=== PATIENT | female | born 1940 | race Caucasian/White ===

== ENCOUNTER → 2017-12-16 10:26 | Outpatient (CLI) | payer OTHER, SELFPAY ==
[2017-12-16 12:03] LABS: Alanine Aminotransferase 24 IU/L (9-52); Albumin 4.5 g/dL (3.5-5.0); Albumin Globulin Ratio 1.5 (1.0-2.8); Alkaline Phosphatase 84 U/L (38-126); Aspartate Aminotransferase 29 IU/L (14-36); BUN Creatinine Ratio 27.5 (6-22); Bilirubin Total 1.6 mg/dL (0.2-1.3); Blood Urea Nitrogen 22 mg/dL (7-17); Calcium 10.5 mg/dL (8.4-10.2); Carbon Dioxide 29 mmol/L (22-32); Chloride 100 mmol/L (98-107); Estimated Glomerular Filt Rate > 60.0 mL/min (>60); Globulin 3.1 g/dL (1.7-4.1); Glucose 105 mg/dL (80-110); HEMOLYSIS < 15 (0-50); Magnesium 2.3 mg/dL (1.6-2.3); Potassium 4.7 mmol/L (3.4-5.1); Sodium 140 mmol/L (137-145); Total Protein 7.6 g/dL (6.3-8.2)
[2017-12-16 12:29] LABS: Thyroid Stimulating Hormone 0.04 uIU/mL (0.47-4.68)
[2017-12-21 09:29] LABS: Lipoprofile NMR SEE SEPERATE REPORT
== END ==
PROVIDERS: PCP Physician Assistant; Visit Provider Physician Assistant
DX: E78.2 Mixed hyperlipidemia (principal); I48.2 Chronic atrial fibrillation; E03.9 Hypothyroidism, unspecified
CPT/HCPCS: 36415; 80053; 83704; 83735; 84443

== ENCOUNTER → 2017-12-28 10:40 | Outpatient (CLI) | payer OTHER, SELFPAY ==
--- NOTE | 2017-12-28 | DI.ECHO.S_ITS ---
[facility] +---------+ : : [address] : : : : [id number] : : : : Phone: [phone] Echocardiogram Report + + :Name: HILLARY TIERNEY Study Date: 12/28/2017 Height: 66 in : :[facility] Weight: 138 lb : : Gender: Female BSA: 1.7 m2 : :: 1940 Age: 77 yrs BP: 162/84 mmHg: :Reason For Study: Mitral Valve- Regurgitation : :Ordering Physician: Bandar : :Scotty Performed By: Jessica Domínguez : + + Interpretation Summary The left ventricle is normal in size, wall thickness, and systolic function without any focal wall motion abnormalities with the ejection fraction visually estimated to be 60-65%. There has been no significant change since the previous study. The right ventricle is normal size but right ventricular systolic function is mildly reduced and appeared slightly less dynamic compared to the previous study. The right ventricular systolic pressure is estimated at 37 mmHg assuming a right atrial pressure of 3 mm Hg, and is unchanged compared to the previous study. Both atria are severely dilated but are unchanged compared to the previous study. There is moderate mitral regurgitation and moderate to severe tricuspid regurgitation that grossly appear unchanged compared to the previous study. The ascending aorta is at the upper limits of normal in size with probable luminal calcification noted. The patient was in atrial fibrillation with heart rates between 59-80 bpm during the exam. Procedure: A two-dimensional transthoracic echocardiogram with color flow and Doppler was performed. The study quality was technically adequate. Comparison is made with the echocardiogram of 05/22/2016. The patient was in atrial fibrillation with heart rates between 59-80 bpm during the exam. Left Ventricle: The left ventricle is normal in size, wall thickness, and systolic function without any focal wall motion abnormalities. The ejection fraction is estimated to be 60-65%. Diastolic function could not be accurately assessed due to atrial fibrillation. There has been no significant change since the previous study. Right Ventricle: The right ventricle is normal size. Right ventricular systolic function is mildly reduced. TAPSE average is 1.3 cm. This is slightly less dynamic compared to the previous study. Atria: Both atria are severely dilated. This is unchanged compared to the previous study. There is no Doppler evidence for an interatrial shunt. Mitral Valve: There is mild mitral annular calcification. The mitral valve leaflets appear mildly thickened, but open well. The mitral valve leaflets are slightly calcified. There is slight calcification extending into the subvalvular apparatus. There is moderate mitral regurgitation. This is unchanged compared to the previous study. Aortic Valve: The aortic valve is trileaflet. The aortic valve opens well. No aortic regurgitation is present. Tricuspid Valve: The tricuspid valve leaflets are thin and pliable. There is moderate to severe tricuspid regurgitation. The right ventricular systolic pressure is estimated at 37 mmHg assuming a right atrial pressure of 3 mm Hg. This is unchanged compared to the previous study. Pulmonic Valve: The pulmonic valve leaflets are thin and pliable; valve motion is normal. There is mild pulmonic regurgitation. This is unchanged compared to the previous study. Great Vessels: The aortic root is normal size. The ascending aorta is at the upper limits of normal in size. The aortic arch is normal in size. There is probable calcification noted in the ascending aorta. The IVC is of normal diameter and collapses greater than 50% with a sniff. This suggests a low right atrial pressure of 3 mm Hg. Pericardium/ Pleura There is no pericardial effusion. MMode/2D Measurements & Calculations LVIDd: 4.7 cm LVOT diam: 1.9 cm LVIDs: 2.7 cm Ao root diam: 2.9 cm FS: 43.3 % Aortic Jxn: 2.5 cm EPSS: 0.11 cm asc Aorta Diam: 3.3 cm IVSd: 0.80 cm Ao Arch Diam (Prox Trans): 2.4 cm LVPWd: 0.93 cm LV agrawal. diameter/BSA (cm/m^2): 2.7 LV sys. diameter/BSA (cm/m^2): 1.6 LA A2 area: 25.4 cm2 RA long axis: 6.9 cm LA A4 area: 31.2 cm2 RA area: 28.8 cm2 LA length (vol): 6.5 cm RA vol: 102.9 ml LA vol: 104.0 ml RA : 60.3 ml/m2 LA vol index: 60.9 ml/m2 IVC diam: 2.0 cm RVD1 (basal): 3.7 cm RVD2 (mid): 2.9 cm TAPSE: 1.3 cm Doppler Measurements & Calculations Ao V2 max: 107.0 cm/sec LVOT Max Abel: 90.7 cm/sec Ao V2 mean: 67.3 cm/sec LV V1 max P.3 mmHg Ao max P.6 mmHg LV V1 VTI: 20.3 cm Ao mean P.1 mmHg BOBBY(I,D): 2.7 cm2 Ao V2 VTI: 20.7 cm BOBBY(V,D): 2.4 cm2 sev ratio: 0.98 BOBBY indexed to BSA (cm^2/m^2): 1.6 MV E max abel: 104.3 cm/sec TR max abel: 289.6 cm/sec Med Peak E' Abel: 6.8 cm/sec TR max P.6 mmHg E/E' med: 15.4 PA V2 max: 70.9 cm/sec Lat Peak E' Abel: 10.9 cm/sec PA V2 mean: 46.4 cm/sec E/E' lat: 9.6 PA mean P.0 mmHg E/e' average: 12.5 PA Accel Time: 0.10 sec MV P1/2t: 46.0 msec MV P1/2t max abel: 104.5 cm/sec MVA(P1/2t): 4.8 cm2 Reading Physician:MEET
== END ==
PROVIDERS: Family Provider Physician Assistant Medical; PCP Physician Assistant; Visit Provider Physician Assistant Medical
DX: I08.1 Rheumatic disorders of both mitral and tricuspid valves (principal)
CPT/HCPCS: 93306

== ENCOUNTER → 2018-01-20 10:18 | Outpatient (CLI) | payer OTHER, SELFPAY ==
[2018-01-21 15:03] LABS: Parathyroid Hormone Int 62 pg/mL (14-64)
== END ==
PROVIDERS: PCP Physician Assistant; Visit Provider Physician Assistant
DX: E03.9 Hypothyroidism, unspecified (principal)
CPT/HCPCS: 36415; 83970

== ENCOUNTER → 2018-04-29 10:02 | Outpatient (CLI) | payer OTHER, SELFPAY ==
[2018-04-29 11:28] LABS: Add Manual Diff / Slide Review NO; Basophils Absolute Auto 100 /uL (0-100); Eosinophils Absolute Auto 100 /uL (0-450); Eosinophils Percent Auto 1.2 % (2-4); Hematocrit 38.3 % (36-46); Hemoglobin 12.8 g/dL (12.0-16.0); Lymphocytes Absolute Auto 1300 /uL (1100-4500); Lymphocytes Percent Auto 16.4 % (25-40); Mean Corpuscular HGB Conc 33.4 % (30-36); Mean Corpuscular Hemoglobin 31.2 PG (26-34); Mean Corpuscular Volume 93.4 fL (80-100); Monocytes Absolute Auto 600 /uL (0-900); Neutrophils Absolute Auto 5800 /uL (1500-7000); Neutrophils Percent Auto 73.4 % (50-75); Platelet Count 235 X10^3/uL (150-400); Red Cell Distribution Width 13.5 % (11.6-14.8); White Blood Cell Count 7.9 X10^3/uL (4.5-11.0)
[2018-04-29 12:43] LABS: Alanine Aminotransferase 25 IU/L (9-52); Albumin 4.6 g/dL (3.5-5.0); Albumin Globulin Ratio 1.5 (1.0-2.8); Alkaline Phosphatase 72 U/L (38-126); Aspartate Aminotransferase 26 IU/L (14-36); Bilirubin Total 1.4 mg/dL (0.2-1.3); Blood Urea Nitrogen 28 mg/dL (7-17); Calcium 9.9 mg/dL (8.4-10.2); Carbon Dioxide 26 mmol/L (22-32); Chloride 102 mmol/L (98-107); Cholesterol 181 mg/dL (140-199); Estimated Glomerular Filt Rate > 60.0 mL/min (>60); Globulin 3.1 g/dL (1.7-4.1); Glucose 97 mg/dL (80-110); HDL Cholesterol 74 mg/dL (40-60); HEMOLYSIS < 15 (0-50); LDL Cholesterol Calculated 94 mg/dL (<100); Potassium 4.3 mmol/L (3.4-5.1); Sodium 138 mmol/L (137-145); Total Protein 7.7 g/dL (6.3-8.2); Triglycerides 67 mg/dL (35-150)
[2018-04-29 14:11] LABS: Thyroid Stimulating Hormone 0.58 uIU/mL (0.47-4.68)
[2018-05-01 14:41] LABS: Parathyroid Hormone Int 74 pg/mL (14-64)
== END ==
PROVIDERS: Family Provider Physician Assistant Medical; PCP Physician Assistant; Visit Provider Physician Assistant
DX: E03.9 Hypothyroidism, unspecified (principal); E78.5 Hyperlipidemia, unspecified; I10 Essential (primary) hypertension; E83.52 Hypercalcemia
CPT/HCPCS: 36415; 80053; 80061; 83970; 84443; 85025

== ENCOUNTER → 2018-09-03 09:09 | Outpatient (CLI) | payer OTHER, SELFPAY ==
[2018-09-03 10:47] LABS: Alanine Aminotransferase 20 IU/L (9-52); Albumin 4.6 g/dL (3.5-5.0); Albumin Globulin Ratio 1.4 (1.0-2.8); Alkaline Phosphatase 86 U/L (38-126); Aspartate Aminotransferase 26 IU/L (14-36); Bilirubin Total 1.6 mg/dL (0.2-1.3); Blood Urea Nitrogen 20 mg/dL (7-17); Calcium 10.3 mg/dL (8.4-10.2); Carbon Dioxide 29 mmol/L (22-32); Chloride 98 mmol/L (98-107); Estimated Glomerular Filt Rate > 60.0 mL/min (>60); Globulin 3.3 g/dL (1.7-4.1); Glucose 110 mg/dL (80-110); HEMOLYSIS < 15 (0-50); Magnesium 2.3 mg/dL (1.6-2.3); Potassium 4.4 mmol/L (3.4-5.1); Sodium 137 mmol/L (137-145); Total Protein 7.9 g/dL (6.3-8.2)
[2018-09-06 08:41] LABS: Lipoprofile NMR SEE SEPARATE REPORTS
== END ==
PROVIDERS: Family Provider Physician Assistant; PCP Physician Assistant; Visit Provider Specialist
DX: E78.2 Mixed hyperlipidemia (principal); I48.2 Chronic atrial fibrillation
CPT/HCPCS: 36415; 80053; 83704; 83735

== ENCOUNTER → 2018-12-02 09:39 | Outpatient (CLI) | payer OTHER, SELFPAY ==
[2018-12-02 11:41] LABS: BUN Creatinine Ratio 23.8 (6-22); Blood Urea Nitrogen 19 mg/dL (7-17); Calcium 9.8 mg/dL (8.4-10.2); Carbon Dioxide 25 mmol/L (22-32); Chloride 96 mmol/L (98-107); Estimated Glomerular Filt Rate > 60.0 mL/min (>60); Glucose 103 mg/dL (80-110); HEMOLYSIS < 15 (0-50); Potassium 4.5 mmol/L (3.4-5.1); Sodium 130 mmol/L (137-145)
[2018-12-02 12:08] LABS: TSH w/ Reflex to FT4 0.75 uIU/mL (0.47-4.68)
[2018-12-04 17:02] LABS: Parathyroid Hormone Int 63 pg/mL (14-64)
== END ==
PROVIDERS: PCP Physician Assistant; Visit Provider Physician Assistant
DX: E03.9 Hypothyroidism, unspecified (principal); E83.52 Hypercalcemia
CPT/HCPCS: 36415; 80048; 83970; 84443

== ENCOUNTER → 2019-05-18 09:03 | Outpatient (CLI) | payer MEDICARE, SELFPAY ==
[2019-05-18 10:24] LABS: Alanine Aminotransferase 17 IU/L (<35); Albumin 4.4 g/dL (3.5-5.0); Albumin Globulin Ratio 1.4 (1.0-2.8); Alkaline Phosphatase 91 U/L (38-126); Aspartate Aminotransferase 25 IU/L (14-36); BUN Creatinine Ratio 31.3 (6-22); Bilirubin Total 1.7 mg/dL (0.2-1.3); Blood Urea Nitrogen 25 mg/dL (7-17); Calcium 10.2 mg/dL (8.4-10.2); Carbon Dioxide 27 mmol/L (22-32); Chloride 102 mmol/L (98-107); Estimated Glomerular Filt Rate > 60.0 mL/min (>60); Globulin 3.2 g/dL (1.7-4.1); Glucose 107 mg/dL (80-110); HEMOLYSIS < 15 (0-50); Magnesium 2.3 mg/dL (1.6-2.3); Potassium 4.4 mmol/L (3.4-5.1); Sodium 138 mmol/L (137-145); Total Protein 7.6 g/dL (6.3-8.2)
[2019-05-20 09:22] LABS: Lipoprofile NMR SEE SEPARATE REPORTS
== END ==
PROVIDERS: PCP Physician Assistant; Referring Provider Specialist; Visit Provider Specialist
DX: I48.20 Chronic atrial fibrillation, unspecified (principal); E78.2 Mixed hyperlipidemia
CPT/HCPCS: 36415; 80053; 83704; 83735

== ENCOUNTER → 2019-05-24 16:37 | Outpatient (ROUT) | payer MEDICARE, SELFPAY ==
[2019-05-24 17:42] LABS: Add Manual Diff / Slide Review NO; Basophils Absolute Auto 100 /uL (0-100); Basophils Percent Auto 1.2 % (0-2); Eosinophils Absolute Auto 100 /uL (0-450); Eosinophils Percent Auto 1.1 % (2-4); Hematocrit 37.6 % (36-46); Hemoglobin 12.6 g/dL (12.0-16.0); Lymphocytes Absolute Auto 1100 /uL (1100-4500); Lymphocytes Percent Auto 15.2 % (25-40); Mean Corpuscular HGB Conc 33.4 % (30-36); Mean Corpuscular Hemoglobin 31.4 PG (26-34); Mean Corpuscular Volume 94.1 fL (80-100); Monocytes Absolute Auto 500 /uL (0-900); Monocytes Percent Auto 6.8 % (3-14); Neutrophils Absolute Auto 5300 /uL (1500-7000); Neutrophils Percent Auto 75.7 % (50-75); Platelet Count 222 X10^3/uL (150-400); Red Cell Distribution Width 13.4 % (11.6-14.8); White Blood Cell Count 6.9 X10^3/uL (4.5-11.0)
[2019-05-24 18:03] LABS: Erythrocyte Sedimentation Rate 6 MM/HR (0-20)
[2019-05-24 18:09] LABS: Alanine Aminotransferase 21 IU/L (<35); Albumin 4.4 g/dL (3.5-5.0); Albumin Globulin Ratio 1.4 (1.0-2.8); Alkaline Phosphatase 91 U/L (38-126); Aspartate Aminotransferase 29 IU/L (14-36); BUN Creatinine Ratio 32.9 (6-22); Bilirubin Total 1.4 mg/dL (0.2-1.3); Blood Urea Nitrogen 23 mg/dL (7-17); Calcium 10.3 mg/dL (8.4-10.2); Carbon Dioxide 27 mmol/L (22-32); Chloride 102 mmol/L (98-107); Cholesterol 146 mg/dL (140-199); Estimated Glomerular Filt Rate > 60.0 mL/min (>60); Globulin 3.1 g/dL (1.7-4.1); Glucose 119 mg/dL (80-110); HDL Cholesterol 63 mg/dL (40-60); HEMOLYSIS < 15 (0-50); LDL Cholesterol Calculated 74 mg/dL (<100); Potassium 4.3 mmol/L (3.4-5.1); Sodium 139 mmol/L (137-145); Total Protein 7.5 g/dL (6.3-8.2); Triglycerides 47 mg/dL (35-150)
[2019-05-24 18:27] LABS: C-Reactive Protein Quant < 0.5 mg/dL (<1.0)
[2019-05-24 18:36] LABS: TSH w/ Reflex to FT4 0.46 uIU/mL (0.47-4.68)
[2019-05-24 19:20] LABS: Free T4, Direct Thyroxine 1.49 ng/dL (0.78-2.19)
[2019-05-28 15:22] LABS: Parathyroid Hormone Int 22 pg/mL (14-64)
[2019-05-29 08:06] LABS: ANA Pattern CYTOPLASMIC; ANA Screen, IFA POSITIVE (NEGATIVE); ANA Titer >=1:1280 titer
== END ==
PROVIDERS: PCP Physician Assistant; Visit Provider Physician Assistant
DX: I10 Essential (primary) hypertension (principal); E03.9 Hypothyroidism, unspecified; E83.52 Hypercalcemia; M25.50 Pain in unspecified joint; M79.10 Myalgia, unspecified site
CPT/HCPCS: 80053; 80061; 83970; 84439; 84443; 85025; 85651; 86038; 86140

== ENCOUNTER → 2019-12-06 11:22 | Outpatient (CLI) | payer MEDICARE, SELFPAY ==
[2019-12-07 19:56] LABS: COVID19 Sendout Not Detected (Not Detect)
== END ==
PROVIDERS: PCP Physician Assistant; Visit Provider Nurse Practitioner
DX: Z11.59 Encounter for screening for other viral diseases (principal)
CPT/HCPCS: 87635

== ENCOUNTER 2019-12-09 13:01 | Day surgery (SDC) | payer MEDICARE, SELFPAY ==
[2019-12-08 12:36] VITALS: BMI 23.1
[2019-12-09] VITALS (9 sets, daily range): BP systolic 134–172; BP diastolic 67–85; PULSE 64–80; RESP 12–18; TEMP 35.7–36.3; O2SAT 96–98; BMI 22.8
--- NOTE | 2019-12-09 13:53 | PM.PREOP ---
Pre-operative Note COVID-19 COVID-19 status: Negative Result date/Date tested (Pos, Neg/Pending): 12/06/19 Interval Note History & Physical reviewed/Exam performed by Physician: Yes Changes to H&P: No
[2019-12-09] MEDS: LACTATED RINGERS 1,000 ML 42 ML IV ×2 (14:01→16:57)
--- NOTE | 2019-12-09 15:48 | PM.OP.1 ---
Operative Date/Time/Diagnoses Date of procedure: 12/09/19 Time of procedure: 16:30 Pre-op diagnosis: Right great toe arthritis, bunion right great toe hammertoe Post-op diagnosis: same Procedure & Clinicians Procedure: Arthrodesis right great toe metatarsophalangeal joint CPT code 67543 T5 Correction hammertoe, right CPT code 68696 T6 Shaving medial eminence callus Same procedure as scheduled: Yes Indications: The patient is an 79-year-old female with severe bunion and hammertoe deformities of the bilateral feet. She has arthritic changes. She has failed conservative treatment. She is desiring correction. We discussed 1st MTP fusion and correction of the hammertoe and shaving down of the medial callus. The risks and benefits of the procedure have been discussed with the patient even opportunity to ask questions. The risks of surgery include but are not limited to infection, malunion, nonunion, persistence of pain, damage to nerves and blood vessels, posttraumatic arthritis, DVT, PE, cardiopulmonary complications and . The patient expressed a thorough understanding of the risks and benefits of surgery and has elected to proceed. Consent was signed in the office. Surgeon: Nidia Mckeon Click Yes if Unassisted: Yes Anesthesia Type: General Operative Notes Findings: Severe right bunion with arthritis. Large keratotic medial imminence callus approximately 1 cm thick horn. Second toe with a hammertoe deformity at the PIP and angular deformity at the DIP. Bunion was corrected with MTP fusion using a small right-sided Arthrex MTP fusion plate and a 3.0 cannulated lag screw. Hammertoes corrected with a PIP arthroplasty realignment of the DIP joint and pinning with an 045 K-wire Closure Type: primary Specimen(s): none sent Applied: implant(s) (Arthrex small right-sided MTP fusion plate. Locking and nonlocking screws. Arthrex 3.0 cannulated lag screw . 045 K-wire) Estimated Blood Loss (mL): 15 Blood products transfused: none Tourniquet time (min): 85 Procedure in detail: Patient was seen in the preoperative area the site of surgery was marked informed consent confirmed. Patient was taken back to the operating room positioned supine on the operating table. General anesthetic was administered. All bony prominences were padded. A well-padded thigh tourniquet was placed on the operative extremity. An SCD was on the contralateral lower extremity. The right lower extremity was draped and prepped in standard sterile fashion. Formal time-out procedure was performed confirming the patient's side and site of surgery and presence of informed consent. Appropriate preoperative antibiotics were administered. Implants were in the room. All were in agreement. An Esmarch bandage was utilized for exsanguination the tourniquet elevated on the right thigh to 250 mm of mercury. Attention was turned to the right foot there is a severe hallux valgus deformity. And hammertoe deformity of the 2nd toe. Attention was turned to the great toe. A longitudinal incision was made just medial to the extensor hallucis longus. This was taken down through the skin and subcutaneous tissue. The EHL was retracted laterally, the capsulotomy was performed to the capsule, the EHB was divided. Flaps were created to expose the 1st MTP joint. Prominent medial eminence and mild dorsal osteophyte also were noted as well as generalized cartilage thinning full-thickness cartilage loss centrally. TPS saw was used to remove the medial eminence in line with the 1st metatarsal. A rongeur was used to remove the largest dorsal osteophyte. Next a guidewire for the conical reamers was placed centrally in the 1st metatarsal under fluoroscopic guidance. The conical reamers were selected started with the large size 22 which was used for reaming followed by and 20 which provided good fit and reaming down to cancellous bone. Guidewire was removed and placed centrally in the proximal phalanx and the matching male reamers were used to ream the proximal phalanx in a similar fashion. Once we were satisfied with this reaming guidewire was removed. The wound was irrigated the joint surfaces were drilled with a 2 0 drill under cooling. Proximal phalanx was finished using the rongeur to get through the calcified cartilage. This provided excellent bone surfaces for arthrodesis. Next the joint was aligned and pinned in place. Alignment was evaluated under fluoroscopic guidance in multiple planes and also tested on a flat plate which confirmed with a [place] under the tip of the toe providing 2-3 mm of clearance. There was some underlying angular deformity centered at the IP joint. Once the flap plate alignment was appropriate fluoroscopy alignment was then checked again. The pin fusion corrected the Hallux valgus intermetatarsal angle as well. Next a guidewire for the 3. 0 cannulated screw was placed from distal medial to proximal lateral. Another cross pin was placed. This was overdrilled. Then the cannulated screw was placed achieving excellent bite and compression. The right a small MTP plate was selected and was secured with BB tacks. Locking screws were placed distally followed by nonlocking screw in the compression slot proximally and then locking screws in the remainder of the holes. Attention was turned to the 2nd toe. a longitudinal incision over the PIP and DIP joints was taken of the 2nd toe as there were deformities at both of these joints. Capsules were opened and the extensor tendon retracted out of the way. The proximal phalanx head was resected and the DIP joint was aligned as well as this was anglularly deformed. Once joints surfaces were prepped the digit was realigned and pinned in place with a 045 K-wire. Position of the wires were confirmed under fluoroscopy. All wounds were irrigated. Tourniquet was released hemostasis was achieved. Soft tissues were closed with 2 O Vicryl, 4 0 Monocryl and 4 0 nylon suture. Sterile dressings were placed with Xeroform gauze and Webril and a kerlix wrap. K-wires were cut and capped. Postoperative shoe was placed. All counts were correct. Drapes removed patient was woken from anesthesia and taken to PACU in good condition. There no immediate complications from this procedure. Complications: none Post-operative Condition: stable Disposition: PACU Plan for aftercare: Flat foot or heel weight-bearing in the postoperative shoe. Deep tissue on at all times so this protect the pin at the end of the toe. Keep the dressing clean dry and intact. Follow-up in 2 weeks. Sutures room a minimum 2 weeks. Pin will remain approximately 4-6weeks
[2019-12-09] MEDS: CEFAZOLIN 2 GM/100 ML FROZ.PIGGY IV (16:05)
--- NOTE | 2019-12-09 16:24 | SUR.OPER ---
Supine on padded OR bed, head on pillow, arms secured on padded arm boards at <90 degrees abduction, right leg in control of surgeon, legs uncrossed, safety belt at thigh, tape over blanket over lower left leg, blanket stack under right foot.
[2019-12-09] MEDS: BUPIVACAINE 0.25% W/ EPI 30 ML VIAL INJ (16:34)
[2019-12-09] MEDS: HYDROCODONE/ACET 5/325 TABLET 1 TAB PO (18:35)
[2019-12-09] MEDS: fentaNYL 100 MCG/2 ML INJ IV ×2 (18:37→18:50)
[2019-12-09] MEDS: KETOROLAC 30 MG/ML VIAL IV (19:41)
--- NOTE | 2019-12-09 20:19 | SUR.PHASEII ---
Patient transferred from stretcher to wheelchair from phase 1- phase 2. Patient became resistive to going home and complains of pain. Have medicated patient per orders. Pain keeps changing location from foot, to hip, to all over. Alert and oriented, but is slightly argumentative with everything. Patient is able to transfer with assistance. Daughter present with patient. Called Dr. Mckeon and updated her that she is complaining of going home and would like to stay the night. Also notified her of her pain. Received orders to give toradol now, but stated that if patient has gotten up that she can discharge home. Gave all instructions to patient's daughter who states she will stay the night with her tonight. Instructed daughter on how to help patient out of car and daughter states that she will have at house to help her to her bed. Patient assisted into car. All belongings and discharge paperwork sent with daughter.
== END 2019-12-09 20:25 | disposition home or self-care (01) ==
PROVIDERS: PCP Physician Assistant; Referring Provider Orthopaedic Surgery Foot and Ankle Surgery; Visit Provider Orthopaedic Surgery Foot and Ankle Surgery
PROC: (CPT 28750; principal; 2019-12-09 14:30)
DX: M20.41 Other hammer toe(s) (acquired), right foot (principal); M19.071 Primary osteoarthritis, right ankle and foot; M20.11 Hallux valgus (acquired), right foot; I10 Essential (primary) hypertension; I48.91 Unspecified atrial fibrillation
CPT/HCPCS: 28750; 28285; J0690; J1885; J2405; J2704; J3010

== ENCOUNTER 2019-12-11 10:21 | Emergency (ER) | payer MEDICARE, SELFPAY ==
[2019-12-11 10:33] VITALS: BP 140/66; PULSE 58; RESP 19; TEMP 36.2; O2SAT 99; BMI 25.8
[2019-12-11 11:48] LABS: Add Manual Diff / Slide Review NO; Basophils Absolute Auto 100 /uL (0-100); Basophils Percent Auto 0.8 % (0-2); Eosinophils Absolute Auto 100 /uL (0-450); Eosinophils Percent Auto 1.1 % (2-4); Hematocrit 32.2 % (36-46); Hemoglobin 11.1 g/dL (12.0-16.0); Lymphocytes Absolute Auto 1000 /uL (1100-4500); Lymphocytes Percent Auto 12.3 % (25-40); Mean Corpuscular HGB Conc 34.4 % (30-36); Mean Corpuscular Hemoglobin 32.4 PG (26-34); Mean Corpuscular Volume 94.1 fL (80-100); Monocytes Absolute Auto 900 /uL (0-900); Neutrophils Absolute Auto 6400 /uL (1500-7000); Neutrophils Percent Auto 74.8 % (50-75); Platelet Count 205 X10^3/uL (150-400); Red Blood Cell Count 3.42 X10^6/uL (4.0-5.2); Red Cell Distribution Width 13.8 % (11.6-14.8); White Blood Cell Count 8.5 X10^3/uL (4.5-11.0)
--- NOTE | 2019-12-11 12:35 | PC.NURSE ---
Provider rewrapped surgical site with new dressing. post op shoe in place, surgical bootie placed over shoe for extra protection.
[2019-12-11 12:37] VITALS: BP 138/80; PULSE 72; RESP 14; O2SAT 97
--- NOTE | 2019-12-11 15:52 | ED.SKABFB ---
HPI - Skin/Abscess/Foreign Bdy General Chief complaint: Skin/Abscess/Foreign Body Stated complaint: Surgery on Thursday, concerned w/dressing, bleeding Time Seen by Provider: 12/11/19 10:25 Source: patient and family Mode of arrival: Family Vehicle Limitations: no limitations History of Present Illness HPI narrative: 79-year-old female nonsmoker with history of hypertension, hyperlipidemia, on Eliquis presents with bleeding through a postoperative bandage after a surgery on her right foot on Thursday. Patient had been in contact with the orthopedist on-call and was instructed to present to the emergency department for evaluation. She is not dizzy nor weak or lightheaded. She denies any significant pain. She denies any chest pain or shortness of breath. She had stopped the Eliquis prior to the surgery and then resumed it immediately after but once the bleeding started she was encouraged to skip the next 2 doses of Eliquis and had been told to return to her normal dosing this evening. MD complaint: other Onset (ago): hour(s) Tetanus up to date: yes Location: R foot Severity: mild Treatments prior to arrival: bandages Related Data Home Medications Medication Instructions Recorded Confirmed Eliquis 5 mg PO BID #0 05/21/16 12/09/19 trazodone 0.5 - 2 tab PO HSP PRN #0 05/21/16 12/08/19 amlodipine 2.5 mg PO DAILY 12/08/19 12/09/19 atorvastatin 10 mg PO DAILY 12/08/19 12/09/19 carvedilol 25 mg PO SEEINSTR 12/08/19 12/09/19 hydrocodone-acetaminophen 1 tab PO Q4-6H PRN 12/08/19 12/09/19 levothyroxine [Synthroid] 50 mcg PO DAILY 12/08/19 12/09/19 spironolactone 12.5 mg PO DAILY 12/08/19 12/09/19 Previous Rx's Medication Instructions Recorded hydrocodone-acetaminophen [[place]] 1 tab PO Q6H PRN #42 tab 12/09/19 Allergies Allergy/AdvReac Type Severity Reaction Status Date / Time hydroxyzine Allergy Severe EXCESSIVE Verified 12/11/19 10:40 DROWSINESS/SLEEPINESS AND CONFUSION codeine AdvReac Severe NAUSEA/VOMI Verified 12/11/19 10:40 TING acetaminophen [From Percocet] AdvReac Vomiting Verified 12/11/19 10:40 adhesive tape AdvReac Rash Verified 12/11/19 10:40 oxycodone [From Percocet] AdvReac Vomiting Verified 12/11/19 10:40 Review of Systems Constitutional Constitutional: Denies chills, Denies fatigue, Denies fever(s), Denies frequent falls, Denies lethargy and Denies weakness Eyes Eyes: Denies change in vision, Denies eye discharge, Denies irritation and Denies loss of vision ENT Ears, Nose, Mouth, and Throat: Denies change in voice, Denies dizziness, Denies neck pain, Denies sore throat and Denies throat swelling Cardiovascular Cardiovascular: Denies chest pain, Denies irregular heart rhythm, Denies lightheadedness, Denies palpitations, Denies dyspnea, Denies dyspnea on exertion and Denies orthopnea Respiratory Respiratory: Denies cough, Denies dyspnea, Denies dyspnea on exertion and Denies wheezing Gastrointestinal Gastrointestinal: Denies abdominal pain, Denies change in bowel habits, Denies diarrhea, Denies nausea and Denies vomiting Musculoskeletal Musculoskeletal: Denies neck pain and Denies numbness Integumentary/Breasts Skin/Breast: Denies pruritus, Denies erythema, Denies rash and Denies wounds Comments: Bleeding Neurologic Neurologic: Denies behavioral changes, Denies confusion, Denies dizziness, Denies frequent falls, Denies loss of vision, Denies numbness and Denies weakness Psychiatric Psychiatric: Denies anxiety, Denies behavioral changes, Denies confusion, Denies depression, Denies homicidal ideation and Denies suicidal ideation Endocrine Endocrine: Denies fatigue, Denies flushing and Denies palpitations Hematologic/Lymphatic Hematologic/Lymphatic: Denies easy bruising Allergic/Immunologic Allergic/Immunologic: Denies urticaria, Denies throat swelling and Denies wheezing Patient History Medical History Acoustic neuroma (Acute) Afib (Acute) Arthritis (Acute) Ataxia (Acute) Cardiomegaly (Acute) Elevated blood sugar (Acute) History of anticoagulant use (Acute) HLD (hyperlipidemia) (Acute) HTN (hypertension) (Acute) Hypercalcemia (Acute) Hypothyroid (Acute) Mitral regurgitation (Acute) Osteopenia (Acute) Pulmonary HTN (Acute) Tricuspid regurgitation (Acute) Surgical History History of cataract extraction (Acute) History of hip replacement (Acute 2005) History of hysterectomy (Acute 1992) Social History household members: other Smoking Status: Never smoker alcohol intake: current Smoking Status: Never smoker alcohol intake frequency: 0-2 drinks per day Substance Use Type: does not use Exam Narrative Exam Narrative: GEN: AOx3 and in mild distress, visibly anxious EYES: Pupils are equal, round, and reactive to light and accommodation. Extraoccular muscles are intact bilaterally. There is no subconjunctival pallor CHEST: Lungs are clear to auscultation bilaterally and free of wheezes, rales, or rhonchi. Heart rate is regular rhythm, there are no murmurs, clicks, rubs, or gallops. There is no chest wall tenderness. ABD: Abdomen is soft and nontender. There is no guarding or rebound. Bowel sounds are normal in all 4 quadrants. There is no mass or organomegaly. EXT: Right foot with dried blood on surgical dressing. [place] wrap and top layer of gauze removed and most of the gauze has dried blood, small amount of fresh blood on dorsum of 2nd toe. SKIN: Warm, pink, and dry. No erythema or rash Initial Vital Signs Initial Vital Signs: Vital Signs Temperature 97.2 F L 12/11/19 10:33 Pulse Rate 58 L 12/11/19 10:33 Respiratory Rate 19 12/11/19 10:33 Blood Pressure 140/66 12/11/19 10:33 Pulse Oximetry 99 12/11/19 10:33 Course Course Course Narrative: After consultation with on-call orthopedist we agree that top layer of dressing be changed out, with special attention to leave the bottom layer, gauze, and particularly the gauze between toes stay in place. Rewrapped in the same fashion. Return precautions given to the patient, reassurance given, questions answered to their apparent satisfaction. Orders Ordered: ED Orders 12/11/19 11:41 Complete Blood Count AUTO DIFF Stat Vital Signs Vital signs: Vital Signs - 8 hr 12/11/19 10:33 12/11/19 12:37 Temperature 97.2 F L Pulse Rate 58 L 72 Respiratory Rate 19 14 Blood Pressure 140/66 138/80 Pulse Oximetry 99 97 MDM - Skin/Abscess/Foreign Bdy Lab Data Result diagrams: 12/11/19 11:41 Labs: Lab Results 12/11/19 Range/Units 11:41 WBC 8.5 (4.5-11.0) X10^3/uL RBC 3.42 L (4.0-5.2) X10^6/uL Hgb 11.1 L (12.0-16.0) g/dL Hct 32.2 L (36-46) % MCV 94.1 (80-100) fL MCH 32.4 (26-34) PG MCHC 34.4 (30-36) % RDW 13.8 (11.6-14.8) % Plt Count 205 (150-400) X10^3/uL Neut % (Auto) 74.8 (50-75) % Lymph % (Auto) 12.3 L (25-40) % [place] % (Auto) 11.0 (3-14) % Eos % (Auto) 1.1 L (2-4) % Baso % (Auto) 0.8 (0-2) % Neut # (Auto) 6400 (9132-3860) /uL Lymph # (Auto) 1000 L (2918-3921) /uL [place] # (Auto) 900 (0-900) /uL Eos # (Auto) 100 (0-450) /uL Baso # (Auto) 100 (0-100) /uL Discharge Plan Departure Patient Disposition: Home Clinical Impression: Postoperative hemorrhage from incision Discharge Date/Time: 12/11/19 12:40 Instructions: DI for Post-Surgical Bleeding Activity Restrictions/Additional Instructions: *You have been diagnosed with [mild bleeding from surgical site] *What to do: *Take medications as directed *Follow up with [facility], call tomorrow morning to discuss possible change to your follow up plans *Return to ER if you should have any new, worsening or concerning symptoms Prescriptions: No Action Eliquis 5 MG tablet 5 mg PO BID Qty: 0 RF: 0 trazodone 50 MG tablet 0.5 - 2 tab PO HSP PRN (Reason: Sleep) Qty: 0 RF: 0 carvedilol 25 mg Tablet 25 mg PO SEEINSTR RF: 0 amlodipine 2.5 mg Tablet 2.5 mg PO DAILY RF: 0 hydrocodone-acetaminophen 10-325 mg Tablet 1 tab PO Q4-6H PRN (Reason: Pain) RF: 0 spironolactone 25 mg Tablet 12.5 mg PO DAILY RF: 0 levothyroxine [Synthroid] 88 mcg Tablet 50 mcg PO DAILY RF: 0 atorvastatin 10 mg Tablet 10 mg PO DAILY RF: 0 hydrocodone-acetaminophen [[place]] 10-325 mg tablet 1 tab PO Q6H PRN (Reason: pain) Qty: 42 RF: 0 Referrals: Nidia Mckeon MD [Physician] - Marycruz Alvraez PA-C [Primary Care Provider] -
== END 2019-12-11 12:40 | disposition home or self-care (01) ==
PROVIDERS: Emergency Provider Emergency Medicine; PCP Physician Assistant
DX: L76.22 Postprocedural hemorrhage of skin and subcutaneous tissue following other procedure (principal)
CPT/HCPCS: 36415; 85025; 99281; 99283

== ENCOUNTER → 2020-01-16 19:10 | Outpatient (ROUT) | payer MEDICARE, SELFPAY ==
[2020-01-16 19:43] LABS: Add Manual Diff / Slide Review NO; Basophils Absolute Auto 100 /uL (0-100); Basophils Percent Auto 0.7 % (0-2); Eosinophils Absolute Auto 100 /uL (0-450); Eosinophils Percent Auto 1.1 % (2-4); Hematocrit 35.5 % (36-46); Hemoglobin 11.9 g/dL (12.0-16.0); Lymphocytes Absolute Auto 1500 /uL (1100-4500); Lymphocytes Percent Auto 16.2 % (25-40); Mean Corpuscular HGB Conc 33.4 % (30-36); Mean Corpuscular Hemoglobin 31.3 PG (26-34); Mean Corpuscular Volume 93.6 fL (80-100); Monocytes Absolute Auto 800 /uL (0-900); Monocytes Percent Auto 8.5 % (3-14); Neutrophils Absolute Auto 6900 /uL (1500-7000); Neutrophils Percent Auto 73.5 % (50-75); Platelet Count 277 X10^3/uL (150-400); Red Blood Cell Count 3.79 X10^6/uL (4.0-5.2); Red Cell Distribution Width 13.8 % (11.6-14.8); White Blood Cell Count 9.4 X10^3/uL (4.5-11.0)
[2020-01-16 20:02] LABS: Alanine Aminotransferase 14 IU/L (<35); Albumin 4.2 g/dL (3.5-5.0); Albumin Globulin Ratio 1.3 (1.0-2.8); Alkaline Phosphatase 101 U/L (38-126); Aspartate Aminotransferase 25 IU/L (14-36); BUN Creatinine Ratio 27.4 (6-22); Bilirubin Total 1.7 mg/dL (0.2-1.3); Blood Urea Nitrogen 20 mg/dL (7-17); Calcium 9.8 mg/dL (8.4-10.2); Carbon Dioxide 31 mmol/L (22-32); Chloride 95 mmol/L (98-107); Estimated Glomerular Filt Rate > 60.0 mL/min (>60); Globulin 3.2 g/dL (1.7-4.1); Glucose 96 mg/dL (80-110); HEMOLYSIS < 15 (0-50); Magnesium 2.4 mg/dL (1.6-2.3); Potassium 4.4 mmol/L (3.4-5.1); Sodium 131 mmol/L (137-145); Total Protein 7.4 g/dL (6.3-8.2)
[2020-01-16 20:33] LABS: TSH w/ Reflex to FT4 3.23 uIU/mL (0.47-4.68)
== END ==
PROVIDERS: PCP Physician Assistant; Visit Provider Physician Assistant
DX: R41.0 Disorientation, unspecified (principal); I10 Essential (primary) hypertension; I48.20 Chronic atrial fibrillation, unspecified; E03.9 Hypothyroidism, unspecified; M48.061 Spinal stenosis, lumbar region without neurogenic claudication
CPT/HCPCS: 80053; 83735; 84443; 85025

== ENCOUNTER → 2020-01-17 14:34 | Outpatient (ROUT) | payer MEDICARE, SELFPAY ==
[2020-01-17 14:37] LABS: Bacteria Urine None Seen; RBC Urine None Seen (0-5/HPF); WBC Urine None Seen (0-5/HPF)
[2020-01-17 14:46] LABS: Appearance Urine UA CLEAR; Bilirubin Urine UA NEGATIVE (NEGATIVE); Color Urine UA YELLOW; Glucose Urine UA NEGATIVE (Negative); Ketones Urine UA NEGATIVE (NEGATIVE); Leukocyte Esterase Urine UA NEGATIVE (NEGATIVE); Nitrite Urine UA NEGATIVE (Negative); Occult Blood Urine UA NEGATIVE (Negative); Protein Urine UA NEGATIVE (Negative); Specific Gravity Urine UA <=1.005 (1.000-1.035); Urobilinogen Urine UA 0.2 E.U./dL (0.2)
[2020-01-17 14:47] LABS: Culture Indicated Urine Cult Not Indicated; Urine Comments Microscopic Normal; pH Urine UA 6.5 (4.5-8.0)
== END ==
PROVIDERS: PCP Physician Assistant; Visit Provider Physician Assistant
DX: R41.0 Disorientation, unspecified (principal); I10 Essential (primary) hypertension; I48.20 Chronic atrial fibrillation, unspecified; E03.9 Hypothyroidism, unspecified; M48.061 Spinal stenosis, lumbar region without neurogenic claudication
CPT/HCPCS: 81001; 87086

== ENCOUNTER → 2020-01-19 15:22 | Outpatient (CLI) | payer MEDICARE, SELFPAY ==
--- NOTE | 2020-01-19 | DI.CT.S_ITS ---
PROCEDURE: CT HEAD/BRAIN WO CON INDICATIONS: CONFUSION TECHNIQUE: Noncontrast 4.5 mm thick angled axial sections acquired from the foramen magnum to the vertex, with coronal and sagittal reformats. For radiation dose reduction, the following was used: automated exposure control, adjustment of mA and/or kV according to patient size. COMPARISON: [facility], MR, STROKE PROTOCOL, 05/22/2016, 9:11. [facility], CT, HEAD WITHOUT CONTRAST, 05/21/2016, 18:17. FINDINGS: Presumed left occipital nathan holes are unchanged since 2017. There is some subjacent encephalomalacia of the left cerebellar hemisphere which may be postprocedural in nature or secondary to remote hemorrhage/infarct. Mild global cerebral volume loss and mild chronic microvascular ischemic changes. Otherwise normal brain parenchymal appearance. No findings of mass effect or midline shift. The ventricular system and basilar cisterns are patent. There is no abnormal extra-axial fluid collection. No evidence of acute intracranial hemorrhage. Paranasal sinuses and mastoid air cells are clear. Bilateral intra-ocular lens replacements. No gross orbital abnormality otherwise. 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 No acute intracranial finding. Dictated by: Allan Gay M.D. on 01/19/2020 at 15:45 Approved by: Allan Gay M.D. on 01/19/2020 at 15:48
== END ==
PROVIDERS: PCP Physician Assistant; Referring Provider Physician Assistant; Visit Provider Physician Assistant
DX: R41.0 Disorientation, unspecified (principal); G93.89 Other specified disorders of brain
CPT/HCPCS: 70450

== ENCOUNTER → 2020-02-22 10:22 | Outpatient (CLI) | payer MEDICARE, SELFPAY ==
--- NOTE | 2020-02-22 10:30 | DI.CT.S_ITS ---
PROCEDURE: CT HEAD/BRAIN WO CON INDICATIONS: FALL TECHNIQUE: Noncontrast 4.5 mm thick angled axial sections acquired from the foramen magnum to the vertex, with coronal and sagittal reformats. For radiation dose reduction, the following was used: automated exposure control, adjustment of mA and/or kV according to patient size. COMPARISON: [facility], CT, CT HEAD/BRAIN WO CON, 01/19/2020, 15:24. FINDINGS: Image quality: Excellent. CSF spaces: Basal cisterns are patent. No extra-axial fluid collections. The ventricles are symmetric in size and shape. Brain: No intracranial bleeds or masses. There is cerebral volume loss for age, with resultant ventricular and sulcal prominence. There are periventricular and deep white matter chronic small vessel ischemic changes. There is intracranial internal carotid artery atherosclerosis. There is mild encephalomalacia in the left cerebellum, stable. Skull and face: Partial left suboccipital craniectomy. Calvarium and visualized facial bones appear intact, without suspicious lesions. Sinuses: Visualized sinuses and mastoids are clear. IMPRESSION: 1. Age related volume loss and small vessel ischemic change. 2. Remote partial left suboccipital craniectomy. 3. No evidence acute stroke, hemorrhage, or mass. Dictated by: Jorge Byrne M.D. on 02/22/2020 at 11:13 Approved by: Jorge Byrne M.D. on 02/22/2020 at 11:15
== END ==
PROVIDERS: PCP Physician Assistant; Referring Provider Internal Medicine; Visit Provider Internal Medicine
DX: S09.90XA Unspecified injury of head, initial encounter (principal); I65.29 Occlusion and stenosis of unspecified carotid artery; G93.89 Other specified disorders of brain; E87.1 Hypo-osmolality and hyponatremia; M79.10 Myalgia, unspecified site; W18.30XA Fall on same level, unspecified, initial encounter
CPT/HCPCS: 70450; 80048; 86038

== ENCOUNTER → 2020-02-22 14:52 | Outpatient (ROUT) | payer MEDICARE, SELFPAY ==
[2020-02-22 15:34] LABS: BUN Creatinine Ratio 26.5 (6-22); Blood Urea Nitrogen 18 mg/dL (7-17); Calcium 10.2 mg/dL (8.4-10.2); Carbon Dioxide 30 mmol/L (22-32); Chloride 103 mmol/L (98-107); Estimated Glomerular Filt Rate > 60.0 mL/min (>60); Glucose 106 mg/dL (80-110); HEMOLYSIS < 15 (0-50); Potassium 4.2 mmol/L (3.4-5.1); Sodium 136 mmol/L (137-145)
[2020-02-24 19:24] LABS: ANA Screen, IFA Negative (.)
== END ==
PROVIDERS: PCP Physician Assistant; Visit Provider Internal Medicine
DX: E87.1 Hypo-osmolality and hyponatremia (principal); M79.10 Myalgia, unspecified site
CPT/HCPCS: 80048; 86038

== ENCOUNTER → 2020-03-01 15:07 | Outpatient (CLI) | payer MEDICARE, SELFPAY ==
--- NOTE | 2020-03-01 | DI.ECHO.S_ITS ---
[facility] +---------+ : : [address] : : : : [id number] : : : : Phone: [phone] Echocardiogram Report + + :Name: HILLARY TIERNEY Study Date: 03/01/2020 Height: 66 in : :[facility] Weight: 140 lb : : Gender: Female BSA: 1.7 m2 : :: 1940 Age: 80 yrs BP: 152/84 mmHg: :Reason For Study: MITRAL INSUFFICIENCY : :Ordering Physician: ERNESTINA, : :CLAIRE Performed By: Galina Loyd : :Referring: CLAIRE DO : + + Interpretation Summary Left ventricular systolic function appears normal with an estimated ejection fraction of 60 to 65% without focal wall motion abnormality. Left ventricular size remains normal. While diastolic function cannot be accurately assessed, it is likely unchanged from the previous study. There has been no significant change from the previous exam. The right ventricle appears normal in size with systolic function at the lower limits of normal but slightly more dynamic compared to the previous study. Right ventricular systolic pressure is estimated at 37 mmHg with a CVP of around 3 mmHg, identical to the previous exam. There is severe biatrial enlargement with the left atrium measuring slightly larger compared to the previous exam. There is moderate mitral regurgitation that appears unchanged from the previous study and moderate tricuspid regurgitation that appears slightly less prominent compared to the previous exam. There is no other significant valvular abnormality. The ascending aorta is borderline enlarged but unchanged from the previous study. A trivial pericardial effusion is seen that is slightly more prominent compared to the previous study. The patient was in atrial fibrillation at 54-74 bpm during the exam, similar to the previous study. Procedure: A two-dimensional transthoracic echocardiogram with color flow and Doppler was performed. The study quality was technically adequate. Comparison is made with the echocardiogram of 12/28/2017. The patient was in atrial fibrillation with heart rates between 54-74 bpm during the exam. Left Ventricle: The left ventricle appears normal in size, wall thickness, and systolic function without any focal wall motion abnormalities. The estimated left ventricular end diastolic volume is 58 ml. The ejection fraction is estimated to be 60-65%. Diastolic function could not be accurately assessed due to atrial fibrillation. This is unchanged compared to the previous study. There has been no significant change since the previous study. Right Ventricle: The right ventricle is normal size. Right ventricular systolic function is at the lower limits of normal. This is slightly more dynamic compared to the previous study. Atria: There is severe biatrial enlargement. The left atrium has mildly increased in size since the prior echo exam. There is no Doppler evidence for an interatrial shunt. Mitral Valve: There is mild mitral annular calcification. The mitral valve leaflets appear mildly thickened, but open well. There is moderate mitral regurgitation. This is unchanged compared to the previous study. Aortic Valve: The aortic valve is trileaflet. The aortic valve is slightly calcified. The aortic valve opens well. There is no aortic valve stenosis. No aortic regurgitation is present. Tricuspid Valve: The tricuspid valve leaflets are thin and pliable. There is moderate tricuspid regurgitation. This is slightly less prominent compared to the previous study. The right ventricular systolic pressure is estimated to be at least 37 mmHg based on an estimated right atrial pressure of 3 mm Hg. This is unchanged compared to the previous study. Pulmonic Valve: The pulmonic valve leaflets are thin and pliable; valve motion is normal. There is trace pulmonic regurgitation. Great Vessels: The aortic root is not well visualized but is probably normal size. The ascending aorta is at the upper limits of normal in size. This is unchanged compared to the previous study. The IVC is of normal diameter and collapses greater than 50% with a sniff. This suggests a low right atrial pressure of 3 mm Hg. Pericardium/ Pleura There is a trivial pericardial effusion noted. This is slightly more prominent compared to the previous study. There is no pleural effusion. MMode/2D Measurements & Calculations LVIDd: 4.8 cm LVOT diam: 2.1 cm LVIDs: 3.3 cm asc Aorta Diam: 3.4 cm FS: 30.2 % Ao Arch Diam (Prox Trans): 2.4 cm EPSS: 0.23 cm IVSd: 0.77 cm LVPWd: 1.00 cm LV agrawal. diameter/BSA (cm/m^2): 2.8 LV sys. diameter/BSA (cm/m^2): 1.9 LA A2 area: 28.9 cm2 RA long axis: 7.0 cm LA A4 area: 39.8 cm2 RA area: 27.6 cm2 LA length (vol): 7.2 cm RA vol: 91.8 ml LA vol: 135.1 ml RA : 53.4 ml/m2 LA vol index: 78.6 ml/m2 IVC diam: 1.8 cm RVD1 (basal): 3.7 cm TAPSE: 1.7 cm Doppler Measurements & Calculations Ao V2 max: 104.6 cm/sec LVOT Max Abel: 80.1 cm/sec Ao V2 mean: 72.3 cm/sec LV V1 max P.6 mmHg Ao max P.4 mmHg LV V1 VTI: 17.3 cm Ao mean P.4 mmHg BOBBY(I,D): 2.5 cm2 Ao V2 VTI: 23.9 cm BOBBY(V,D): 2.7 cm2 sev ratio: 0.73 BOBBY indexed to BSA (cm^2/m^2): 1.5 MV E max abel: 99.6 cm/sec TR max abel: 290.0 cm/sec MV A max abel: 2.3 cm/sec TR max P.6 mmHg MV E/A: 44.3 PA V2 max: 64.7 cm/sec Med Peak E' Abel: 10.8 cm/sec PA V2 mean: 40.6 cm/sec E/E' med: 9.2 PA mean P.81 mmHg Lat Peak E' Abel: 9.5 cm/sec PA pr(Accel): 36.2 mmHg E/E' lat: 10.5 E/e' average: 9.9 MV dec time: 0.17 sec SV(LVOT): 60.6 ml Reading Physician:05:31 PM
== END ==
PROVIDERS: PCP Physician Assistant; Referring Provider Physician Assistant Medical; Visit Provider Specialist
DX: I08.1 Rheumatic disorders of both mitral and tricuspid valves (principal)
CPT/HCPCS: 93306

== ENCOUNTER 2020-03-07 08:59 | Emergency (ER) | payer MEDICARE, SELFPAY ==
[2020-03-07] VITALS (11 sets, daily range): BP systolic 169–191; BP diastolic 76–130; PULSE 65–76; RESP 15–24; TEMP 36.6; O2SAT 97–99
--- NOTE | 2020-03-07 09:09 | DI.CT.S_ITS ---
PROCEDURE: CT HEAD/BRAIN WO CON INDICATIONS: confusion possible CVA not TPA TECHNIQUE: Noncontrast 4.5 mm thick angled axial sections acquired from the foramen magnum to the vertex, with coronal and sagittal reformats. For radiation dose reduction, the following was used: automated exposure control, adjustment of mA and/or kV according to patient size. COMPARISON: [facility], CT, CT HEAD/BRAIN WO CON, 02/22/2020, 10:31. FINDINGS: Image quality: Excellent. CSF spaces: Basal cisterns are patent. No extra-axial fluid collections. There is mild cerebral volume loss, with resultant ventricular and sulcal prominence. Brain: No intracranial hemorrhage, mass, or mass effect. There are subcortical, periventricular and deep white matter hypodensities consistent with mild chronic small vessel ischemic changes. A small region of encephalomalacia is redemonstrated in the left cerebellar hemisphere. The garrett-white matter junction otherwise appears preserved. There is intracranial internal carotid artery atherosclerosis. Skull and face: Calvarium and visualized facial bones demonstrate no acute fractures. There are postsurgical changes consistent with prior left occipital craniectomy redemonstrated. Sinuses: Visualized sinuses and mastoids are clear. IMPRESSION: 1. No acute intracranial abnormality. 2. Postsurgical changes redemonstrated consistent with prior left occipital craniectomy with associated encephalomalacia in the left cerebellar hemisphere. 3. Mild chronic white matter small vessel ischemic changes and cerebral volume loss. Dictated by: Rafael Mckeon M.D. on 03/07/2020 at 9:24 Approved by: Rafael Mckeon M.D. on 03/07/2020 at 9:27
--- NOTE | 2020-03-07 09:15 | ED.GENADULT ---
HPI - General Adult General Chief complaint: Neuro Symptoms/Deficit Stated complaint: ? stroke Time Seen by Provider: 03/07/20 09:06 Source: patient and family Mode of arrival: Ambulatory Limitations: no limitations History of Present Illness HPI narrative: Patient is an 80-year-old female. On Eliquis for atrial fibrillation who is here for evaluation of what she thinks is a potential stroke. Starting yesterday patient states that she felt like something bad was going to happen. States she kept thinking about it. She thought that she should just come into the emergency department to make sure nothing bad was happening. She does feel like that she has been confused recently. She realizes that she is confused. States she is having problems remembering dates and what to do on a specific date. She states that she then starts thinking about these and this makes her anxious. Approximately 2 weeks ago she had a fall at home. States she does lost her balance and fell over. She has had an acoustic schwannoma removed many years ago and since then has had balance issues. She has also had a couple falls prior to the 1 2 weeks ago. Related Data Home Medications Medication Instructions Recorded Confirmed Eliquis 5 mg PO BID #0 05/21/16 03/07/20 trazodone 0.5 - 2 tab PO HSP PRN #0 05/21/16 03/07/20 amlodipine 2.5 mg PO DAILY 12/08/19 03/07/20 atorvastatin 10 mg PO DAILY 12/08/19 03/07/20 carvedilol 25 mg PO SEEINSTR 12/08/19 03/07/20 hydrocodone-acetaminophen 1 tab PO Q4-6H PRN 12/08/19 03/07/20 levothyroxine [Synthroid] 50 mcg PO DAILY 12/08/19 03/07/20 spironolactone 12.5 mg PO DAILY 12/08/19 03/07/20 ascorbic acid (vitamin C) 1,000 mg PO DAILY 03/07/20 03/07/20 cholecalciferol (vitamin D3) 2,000 unit PO DAILY 03/07/20 03/07/20 [Vitamin D3] Previous Rx's Medication Instructions Recorded hydrocodone-acetaminophen [[place]] 1 tab PO Q6H PRN #42 tab 12/09/19 Allergies Allergy/AdvReac Type Severity Reaction Status Date / Time hydroxyzine Allergy Severe EXCESSIVE Verified 12/11/19 10:40 DROWSINESS/SLEEPINESS AND CONFUSION codeine AdvReac Severe NAUSEA/VOMI Verified 12/11/19 10:40 TING acetaminophen [From Percocet] AdvReac Vomiting Verified 12/11/19 10:40 adhesive tape AdvReac Rash Verified 12/11/19 10:40 oxycodone [From Percocet] AdvReac Vomiting Verified 12/11/19 10:40 Review of Systems Constitutional Constitutional: Denies fever(s) and Denies headache(s) Eyes Eyes: Denies change in vision ENT Ears, Nose, Mouth, and Throat: Denies vertigo, Reports dizziness (Occasionally), Denies headache(s) and Denies tinnitus Cardiovascular Cardiovascular: Denies chest pain and Denies dyspnea Respiratory Respiratory: Denies cough and Denies dyspnea Gastrointestinal Gastrointestinal: Denies abdominal pain, Denies nausea and Denies vomiting Genitourinary Genitourinary: Denies dysuria Genitourinary: Denies dysuria Musculoskeletal Musculoskeletal: Denies arthralgias and Denies myalgias Integumentary/Breasts Skin/Breast: Denies lesions and Denies rash Neurologic Neurologic: Reports confusion, Denies vertigo, Reports dizziness (Occasionally) and Denies headache(s) Psychiatric Psychiatric: Reports anxiety and Reports confusion Hematologic/Lymphatic Comments: On anticoagulation Allergic/Immunologic Allergic/Immunologic: Denies urticaria Patient History Medical History (Updated 03/07/20 @ 12:16 by Blayne Tom DO) Acoustic neuroma Afib Arthritis Ataxia Cardiomegaly Elevated blood sugar History of anticoagulant use HLD (hyperlipidemia) HTN (hypertension) Hypercalcemia Hypothyroid Mitral regurgitation Osteopenia Pulmonary HTN Tricuspid regurgitation Surgical History History of cataract extraction History of hip replacement (2005) History of hysterectomy (1992) Social History household members: other Smoking Status: Never smoker alcohol intake: current Smoking Status: Never smoker alcohol intake frequency: 0-2 drinks per day Substance Use Type: does not use Exam Initial Vital Signs Initial Vital Signs: Vital Signs Temperature 97.8 F 03/07/20 09:00 Pulse Rate 75 03/07/20 09:00 Respiratory Rate 16 03/07/20 09:00 Blood Pressure 176/130 H 03/07/20 09:00 Pulse Oximetry 98 03/07/20 09:00 Const General: cooperative and comfortable Limitations: mental status not altered HENMT Head: normal to inspection and normocephalic Eyes General: appearance normal, both eyes and all related structures Pupils: PERRL EOM: EOM intact bilaterally Resp Effort & Inspection: normal respiratory effort Auscultation: clear to auscultation bilaterally Cardio Rate: regular rate Rhythm: abnormal rhythm GI Inspection: non-distended Palpation: soft Skin Lesions: no lesions Rashes: no rashes Neuro General: patient alert, patient awake and moves all extremities Speech: speech normal Motor: muscle tone normal throughout Sensory Exam: no sensory deficits noted Extrem General: capillary refill normal Psych Appearance: grossly normal and well kempt Scores GCS Kathleen coma scale eye opening: Spontaneous Galvin coma scale verbal response: Orientated Kathleen coma scale motor response: Obey commands Kathleen coma scale total score: 15 NIH Stroke Scale Level of Conciousness: Alert, keenly responsive Ask month/age: Answers both questions correctly. Best gaze horizontal: Normal Visual garcia: No visual loss Facial palsy: Normal symetrical movement Left arm drift: No drift for full 10 sec Right arm drift: No drift for full 10 sec Left leg drift: No drift for full 5 sec Right leg drift: No drift for full 5 sec Limb ataxia: Absent Sensory on face/arms/legs: Normal, no sensory loss Best language: No aphasia, normal Dysarthria: Normal Extinction or inattention: No abnormality Course Orders Ordered: ED Orders 03/07/20 11:03 XR chest 1V Stat Vital Signs Vital signs: Vital Signs - 8 hr 03/07/20 12:00 Pulse Rate 69 Respiratory Rate 23 Blood Pressure 185/84 H Pulse Oximetry 97 Medical Decision Making Lab Data Lab results reviewed: Yes I reviewed the patient's lab results. Result diagrams: 03/07/20 09:11 03/07/20 09:11 Labs: Lab Results 03/07/20 03/07/20 03/07/20 Range/Units 09:11 09:11 09:11 WBC 7.2 (4.5-11.0) X10^3/uL RBC 3.81 L (4.0-5.2) X10^6/uL Hgb 11.9 L (12.0-16.0) g/dL Hct 35.3 L (36-46) % MCV 92.5 (80-100) fL MCH 31.1 (26-34) PG MCHC 33.6 (30-36) % RDW 13.5 (11.6-14.8) % Plt Count 234 (150-400) X10^3/uL Neut % (Auto) 75.6 H (50-75) % Lymph % (Auto) 14.2 L (25-40) % [place] % (Auto) 7.8 (3-14) % Eos % (Auto) 1.5 L (2-4) % Baso % (Auto) 0.9 (0-2) % Neut # (Auto) 5500 (9953-5995) /uL Lymph # (Auto) 1000 L (6143-4038) /uL [place] # (Auto) 600 (0-900) /uL Eos # (Auto) 100 (0-450) /uL Baso # (Auto) 100 (0-100) /uL PT 16.7 H (10.1-12.7) SECONDS INR 1.5 H (0.9-1.3) APTT 34 (26.4-36.2) SECONDS Sodium (137-145) mmol/L Potassium (3.4-5.1) mmol/L Chloride (98-107) mmol/L Carbon Dioxide (22-32) mmol/L BUN (7-17) mg/dL Creatinine (0.52-1.04) mg/dL Estimated GFR (>60) mL/min BUN/Creatinine Ratio (6-22) Glucose (80-110) mg/dL Calcium (8.4-10.2) mg/dL Magnesium (1.6-2.3) mg/dL Total Creatine Kinase 39 (30-135) U/L CK-MB (CK-2) TNP CK-MB (CK-2) Rel Index TNP Troponin I < 0.012 (0.01-0.034) ng/mL TSH (0.47-4.68) uIU/mL Ethyl Alcohol < 10 ( - 10) mg/dL 03/07/20 03/07/20 Range/Units 09:11 09:11 WBC (4.5-11.0) X10^3/uL RBC (4.0-5.2) X10^6/uL Hgb (12.0-16.0) g/dL Hct (36-46) % MCV (80-100) fL MCH (26-34) PG MCHC (30-36) % RDW (11.6-14.8) % Plt Count (150-400) X10^3/uL Neut % (Auto) (50-75) % Lymph % (Auto) (25-40) % [place] % (Auto) (3-14) % Eos % (Auto) (2-4) % Baso % (Auto) (0-2) % Neut # (Auto) (2348-2952) /uL Lymph # (Auto) (7908-8124) /uL [place] # (Auto) (0-900) /uL Eos # (Auto) (0-450) /uL Baso # (Auto) (0-100) /uL PT (10.1-12.7) SECONDS INR (0.9-1.3) APTT (26.4-36.2) SECONDS Sodium 138 (137-145) mmol/L Potassium 4.1 (3.4-5.1) mmol/L Chloride 104 (98-107) mmol/L Carbon Dioxide 28 (22-32) mmol/L BUN 21 H (7-17) mg/dL Creatinine 0.61 (0.52-1.04) mg/dL Estimated GFR > 60.0 (>60) mL/min BUN/Creatinine Ratio 34.4 H (6-22) Glucose 104 (80-110) mg/dL Calcium 9.7 (8.4-10.2) mg/dL Magnesium 2.4 H (1.6-2.3) mg/dL Total Creatine Kinase (30-135) U/L CK-MB (CK-2) CK-MB (CK-2) Rel Index Troponin I (0.01-0.034) ng/mL TSH 2.64 (0.47-4.68) uIU/mL Ethyl Alcohol ( - 10) mg/dL Urine Dip Bedside Urine Glucose Negative Bedside Urine Bilirubin - Negative Bedside Urine Ketone - Negative Urine Specific [place] 1.015 Bedside Urine Occult Blood - Negative Bedside Urine pH 6.5 Bedside Urine Protein - Negative Bedside Urine Urobilinogen - Negative Bedside Urine Nitrite - Negative Bedside Urine Leukocytes - Negative Esterase Point of care testing: Urine Dip Bedside Urine Glucose Negative Bedside Urine Bilirubin - Negative Bedside Urine Ketone - Negative Urine Specific [place] 1.015 Bedside Urine Occult Blood - Negative Bedside Urine pH 6.5 Bedside Urine Protein - Negative Bedside Urine Urobilinogen - Negative Bedside Urine Nitrite - Negative Bedside Urine Leukocytes - Negative Esterase Imaging Data CT scan - head: Radiologist's Impression: [place] [id number] [place] [id number] Scan ReportSigned Patient: Sparkle Bales DMR#: [id number]: [id number]:[id number]/Sex: 80 / FDate of Service: 03/07/20Loc: EDAccession Number: [id number] Procedure: CT head/brain wo con Ordering Provider: Blayne Tom D.O. PROCEDURE: CT HEAD/BRAIN WO CON INDICATIONS: confusion possible CVA not TPA TECHNIQUE: Noncontrast 4.5 mm thick angled axial sections acquired from the foramen magnum to the vertex, with coronal and sagittal reformats. For radiation dose reduction, the following was used: automated exposure control, adjustment of mA and/or kV according to patient size. COMPARISON: [facility], CT, CT HEAD/BRAIN WO CON, 02/22/2020, 10:31. FINDINGS: Image quality: Excellent. CSF spaces: Basal cisterns are patent. No extra-axial fluid collections. There is mild cerebral volume loss, with resultant ventricular and sulcal prominence. Brain: No intracranial hemorrhage, mass, or mass effect. There are subcortical, periventricular and deep white matter hypodensities consistent with mild chronic small vessel ischemic changes. A small region of encephalomalacia is redemonstrated in the left cerebellar hemisphere. The garrett-white matter junction otherwise appears preserved. There is intracranial internal carotid artery atherosclerosis. Skull and face: Calvarium and visualized facial bones demonstrate no acute fractures. There are postsurgical changes consistent with prior left occipital craniectomy redemonstrated. Sinuses: Visualized sinuses and mastoids are clear. IMPRESSION: 1. No acute intracranial abnormality. 2. Postsurgical changes redemonstrated consistent with prior left occipital craniectomy with associated encephalomalacia in the left cerebellar hemisphere. 3. Mild chronic white matter small vessel ischemic changes and cerebral volume loss. Dictated by: Rafael Mckeon M.D. on 03/07/2020 at 9:24 Approved by: Rafael Mckeon M.D. on 03/07/2020 at 9:27 Chest x-ray: Radiologist's Impression: [facility] [place] [id number] ReportSigned Patient: Sparkle Bales DMR#: [id number]: [id number]:[id number]/Sex: 80 / FDate of Service: 03/07/20Loc: EDAccession Number: [id number] Procedure: XR chest 1V Ordering Provider: Blayne Tom D.O. PROCEDURE: XR CHEST 1V INDICATIONS: chest pain TECHNIQUE: One view of the chest was acquired. COMPARISON: [facility], , CHEST 2 VIEW, 01/31/2008, 13:21. [facility], , CHEST 1 VIEW, 05/21/2016, 17:27. FINDINGS: The patient is rotated to the left for this study. Surgical changes and devices: None. Lungs and pleura: On this semiupright portable chest examination, no large pneumothorax or large pleural effusions are seen. No focal infiltrates are seen. Mediastinum: The cardiac contours are enlarged. The aorta demonstrates calcification and tortuosity. Bones and chest wall: No suspicious bony lesions. Age-appropriate bony degenerative changes are seen. Overlying soft tissues appear unremarkable. IMPRESSION: Moderate cardiomegaly again seen. Dictated by: Aubrey Moore M.D. on 03/07/2020 at 10:29 Approved by: Aubrey Moore M.D. on 03/07/2020 at 10:30 ECG Data Attestation: I personally reviewed and interpreted this ECG as follows: Prior ECG tracings: not available for review Interpretation: No ischemic changes MDM Narrative Medical decision making narrative: Patient is alert and oriented. Has a NIH scale of 0. I do have low suspicion for TIA. Low suspicion for CVA. Has had cognitive decline recently. I informed the family that they do need to talk with her primary doctor about further workup of this. She states she has been having problems remembering what days it is and what things she is supposed to be doing during the day and then is becoming very anxious about it. She agreed with this description of her symptoms. I feel patient can be discharged home with follow-up with her primary provider. Discharge Plan Departure Patient Disposition: Home Clinical Impression: Confusion Instructions: DI for Altered Mental Status Activity Restrictions/Additional Instructions: I do recommend that you continue all of your medications as directed. Contact your primary provider for a follow-up. Return to the emergency department for any new or worsening symptoms Prescriptions: No Action Eliquis 5 MG tablet 5 mg PO BID Qty: 0 RF: 0 trazodone 50 MG tablet 0.5 - 2 tab PO HSP PRN (Reason: Sleep) Qty: 0 RF: 0 carvedilol 25 mg Tablet 25 mg PO SEEINSTR RF: 0 amlodipine 2.5 mg Tablet 2.5 mg PO DAILY RF: 0 hydrocodone-acetaminophen 10-325 mg Tablet 1 tab PO Q4-6H PRN (Reason: Pain) RF: 0 spironolactone 25 mg Tablet 12.5 mg PO DAILY RF: 0 levothyroxine [Synthroid] 88 mcg Tablet 50 mcg PO DAILY RF: 0 atorvastatin 10 mg Tablet 10 mg PO DAILY RF: 0 hydrocodone-acetaminophen [[place]] 10-325 mg tablet 1 tab PO Q6H PRN (Reason: pain) Qty: 42 RF: 0 ascorbic acid (vitamin C) 1,000 mg Tablet 1,000 mg PO DAILY RF: 0 cholecalciferol (vitamin D3) [Vitamin D3] 50 mcg (2,000 unit) Capsule 2,000 unit PO DAILY RF: 0 Referrals: Marycruz Alvarez PA-C [Primary Care Provider] -
[2020-03-07 09:33] LABS: Add Manual Diff / Slide Review NO; Basophils Absolute Auto 100 /uL (0-100); Basophils Percent Auto 0.9 % (0-2); Eosinophils Absolute Auto 100 /uL (0-450); Eosinophils Percent Auto 1.5 % (2-4); Hematocrit 35.3 % (36-46); Hemoglobin 11.9 g/dL (12.0-16.0); Lymphocytes Absolute Auto 1000 /uL (1100-4500); Lymphocytes Percent Auto 14.2 % (25-40); Mean Corpuscular HGB Conc 33.6 % (30-36); Mean Corpuscular Hemoglobin 31.1 PG (26-34); Mean Corpuscular Volume 92.5 fL (80-100); Monocytes Absolute Auto 600 /uL (0-900); Monocytes Percent Auto 7.8 % (3-14); Neutrophils Absolute Auto 5500 /uL (1500-7000); Neutrophils Percent Auto 75.6 % (50-75); Platelet Count 234 X10^3/uL (150-400); Red Blood Cell Count 3.81 X10^6/uL (4.0-5.2); Red Cell Distribution Width 13.5 % (11.6-14.8); White Blood Cell Count 7.2 X10^3/uL (4.5-11.0)
[2020-03-07 09:35] LABS: INR 1.5 (0.9-1.3); Prothrombin Time 16.7 SECONDS (10.1-12.7)
[2020-03-07 09:37] LABS: PTT Partial Thromboplastin Tim 34 SECONDS (26.4-36.2)
--- NOTE | 2020-03-07 09:37 | PC.NURSE ---
pt arrived with [place] dc yesterday at some point in the morning Pt has baseline confusion and daughter reports increasing confusion--unk what day it was, asking repeat questions. Pt appears unsteady on feet when transferring to bed, states tongue feels thick and heavy NIH performed with Dr Tom at bedside. NIH 0. HR 66 Afib on monitor BP 178/76, did not take her meds this morning. takes Eliquis. RR even and unlabored. SPO 99%.
[2020-03-07 09:39] LABS: Creatine Kinase 39 U/L (30-135); Ethanol (ETOH) < 10 mg/dL
[2020-03-07 09:40] LABS: BUN Creatinine Ratio 34.4 (6-22); Blood Urea Nitrogen 21 mg/dL (7-17); Calcium 9.7 mg/dL (8.4-10.2); Carbon Dioxide 28 mmol/L (22-32); Chloride 104 mmol/L (98-107); Estimated Glomerular Filt Rate > 60.0 mL/min (>60); Glucose 104 mg/dL (80-110); HEMOLYSIS < 15 (0-50); Magnesium 2.4 mg/dL (1.6-2.3); Potassium 4.1 mmol/L (3.4-5.1); Sodium 138 mmol/L (137-145)
[2020-03-07 09:52] LABS: Troponin I < 0.012 ng/mL (0.01-0.034)
[2020-03-07 10:20] LABS: Thyroid Stimulating Hormone 2.64 uIU/mL (0.47-4.68)
--- NOTE | 2020-03-07 11:03 | DI.RAD.S_ITS ---
PROCEDURE: XR CHEST 1V INDICATIONS: chest pain TECHNIQUE: One view of the chest was acquired. COMPARISON: [facility], CHEST 2 VIEW, 01/31/2008, 13:21. [facility], CHEST 1 VIEW, 05/21/2016, 17:27. FINDINGS: The patient is rotated to the left for this study. Surgical changes and devices: None. Lungs and pleura: On this semiupright portable chest examination, no large pneumothorax or large pleural effusions are seen. No focal infiltrates are seen. Mediastinum: The cardiac contours are enlarged. The aorta demonstrates calcification and tortuosity. Bones and chest wall: No suspicious bony lesions. Age-appropriate bony degenerative changes are seen. Overlying soft tissues appear unremarkable. IMPRESSION: Moderate cardiomegaly again seen. Dictated by: Aubrey Moore M.D. on 03/07/2020 at 10:29 Approved by: Aubrey Moore M.D. on 03/07/2020 at 10:30
== END 2020-03-07 12:41 | disposition home or self-care (01) ==
PROVIDERS: Emergency Provider Emergency Medicine; PCP Physician Assistant
DX: R41.0 Disorientation, unspecified (principal); I48.91 Unspecified atrial fibrillation; Z79.01 Long term (current) use of anticoagulants; I10 Essential (primary) hypertension; E78.5 Hyperlipidemia, unspecified; E03.9 Hypothyroidism, unspecified; I51.7 Cardiomegaly; R07.9 Chest pain, unspecified
CPT/HCPCS: 36415; 70450; 71045; 80048; 80320; 81003; 82550; 83735; 84443; 84484; 85025; 85610; 85730; 93005; 93010; 99284

== ENCOUNTER → 2020-03-28 11:09 | Outpatient (CLI) | payer MEDICARE, SELFPAY ==
--- NOTE | 2020-03-28 | DI.MRI.S_ITS ---
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 TECHNIQUE: Noncontrast axial T1 spin echo, axial T2 fast spin echo, sagittal and axial FLAIR, coronal T2 fast spin echo, axial gradient echo, axial diffusion and ADC through the brain. Precontrast high-resolution imaging through the internal auditory canals. After the administration of contrast, axial and coronal T1 spin echo with fat saturation through the brain and internal auditory canals. COMPARISON: [facility], MR, STROKE PROTOCOL, 05/22/2016, 9:11. [facility], CT, CT HEAD/BRAIN WO CON, 03/07/2020, 9:10. FINDINGS: Image quality: Excellent. CSF spaces: Basal cisterns are patent. No extra-axial fluid collections. Ventricles are normal in size and shape. Brain: No midline shift. No intracranial bleeds or masses. There is a resection cavity at the left cerebellopontine angle, as before. No abnormal intracranial enhancement. There is cerebral volume loss for age. There is periventricular white matter chronic small vessel ischemic change. The brainstem appears normal. Diffusion-weighted images demonstrate no acute ischemic insults. No chronic ischemic insults. Normal intravascular flow voids are present. Skull and face: Calvarial marrow is normal in signal. Orbits appear normal. Sinuses: Sinuses and mastoids appear clear. IMPRESSION: 1. Volume loss and small vessel ischemic disease. 2. Negative evaluation of the internal auditory canals. Postsurgical sequelae. Dictated by: Nestor Fermin M.D. on 03/28/2020 at 12:10 Approved by: Nestor Fermin M.D. on 03/28/2020 at 12:14
== END ==
PROVIDERS: PCP Physician Assistant; Referring Provider Physician Assistant; Visit Provider Psychiatry & Neurology Neurology
DX: D33.3 Benign neoplasm of cranial nerves (principal)
CPT/HCPCS: 70553

== ENCOUNTER → 2020-05-04 10:11 | Outpatient (CLI) | payer MEDICARE, SELFPAY ==
[2020-05-04] MEDS: COVID-19 VACC #1, MRNA(MOD) 100 MCG/0.5 ML VIAL IM (10:15)
== END ==
PROVIDERS: PCP Physician Assistant; Visit Provider Internal Medicine
DX: Z23 Encounter for immunization (principal)
CPT/HCPCS: 0011A; 91301

== ENCOUNTER → 2020-05-19 11:03 | Outpatient (CLI) | payer MEDICARE, SELFPAY ==
[2020-05-19 12:51] LABS: Alanine Aminotransferase 15 IU/L (<35); Albumin 4.1 g/dL (3.5-5.0); Albumin Globulin Ratio 1.4 (1.0-2.8); Alkaline Phosphatase 89 U/L (38-126); Aspartate Aminotransferase 26 IU/L (14-36); BUN Creatinine Ratio 35.8 (6-22); Bilirubin Total 1.2 mg/dL (0.2-1.3); Blood Urea Nitrogen 24 mg/dL (7-17); Carbon Dioxide 31 mmol/L (22-32); Chloride 103 mmol/L (98-107); Estimated Glomerular Filt Rate > 60.0 mL/min (>60); Glucose 94 mg/dL (80-110); HEMOLYSIS < 15 (0-50); Magnesium 2.3 mg/dL (1.6-2.3); Potassium 4.4 mmol/L (3.4-5.1); Sodium 136 mmol/L (137-145); Total Protein 7.1 g/dL (6.3-8.2)
[2020-05-29 14:44] LABS: LDL Particle SEE SEPARATE RESULTS
== END ==
PROVIDERS: PCP Physician Assistant; Referring Provider Specialist; Visit Provider Specialist
DX: E78.00 Pure hypercholesterolemia, unspecified (principal); I10 Essential (primary) hypertension
CPT/HCPCS: 36415; 80053; 80061; 83704; 83735

== ENCOUNTER → 2020-05-31 12:48 | Outpatient (CLI) | payer MEDICARE, SELFPAY ==
[2020-05-31] MEDS: COVID-19 VACC #2, MRNA(MOD) 100 MCG/0.5 ML VIAL IM (12:52)
== END ==
PROVIDERS: PCP Physician Assistant; Visit Provider Internal Medicine
DX: Z23 Encounter for immunization (principal)
CPT/HCPCS: 0012A; 91301

== ENCOUNTER 2020-07-17 10:04 | Emergency (ER) | payer MEDICARE, SELFPAY ==
[2020-07-17 10:05] VITALS: BP 194/85; PULSE 69; RESP 14; TEMP 36.3; O2SAT 97; BMI 22.2
--- NOTE | 2020-07-17 10:17 | ED.FALL ---
HPI - Fall General Chief Complaint: Fall Stated Complaint: fell x2/dizzy/weakness/clammy/sob x2 days Time Seen by Provider: 07/17/20 10:09 Source: patient Mode of arrival: Ambulatory History of Present Illness HPI Narrative: 80-year-old woman with a history of hypothyroidism atrial fibrillation on Eliquis, gait instability requiring a walker, increasing cognitive/memory issues and continuing to live independently presents with increasing weakness and worsening gait instability. She fell on both Thursday and Thursday and hit her head with both falls. She currently is seeing Christiana Alvarez for workup regarding the gait instability. She had a Neurology consult at the [facility] last week. That issues prompting ER visit today include worsening instability today a complaint that she was feeling weak all over, increased confusion increased anxiety and an episode of clamminess, dyspnea with a wave of nausea this morning. The dizziness dyspnea and nausea have entirely resolved at this point and at no point did she complain of chest pain or palpitations. She has had no abdominal pain, dysuria, hematuria, diarrhea, skin changes. Related Data Home Medications Medication Instructions Recorded Confirmed Eliquis 5 mg PO BID #0 05/21/16 03/07/20 trazodone 0.5 - 2 tab PO HSP PRN #0 05/21/16 03/07/20 amlodipine 2.5 mg PO DAILY 12/08/19 03/07/20 atorvastatin 10 mg PO DAILY 12/08/19 03/07/20 carvedilol 25 mg PO SEEINSTR 12/08/19 03/07/20 hydrocodone-acetaminophen 1 tab PO Q4-6H PRN 12/08/19 03/07/20 levothyroxine [Synthroid] 50 mcg PO DAILY 12/08/19 03/07/20 spironolactone 12.5 mg PO DAILY 12/08/19 03/07/20 ascorbic acid (vitamin C) 1,000 mg PO DAILY 03/07/20 03/07/20 cholecalciferol (vitamin D3) 2,000 unit PO DAILY 03/07/20 03/07/20 [Vitamin D3] Previous Rx's Medication Instructions Recorded hydrocodone-acetaminophen [[place]] 1 tab PO Q6H PRN #42 tab 12/09/19 Allergies Allergy/AdvReac Type Severity Reaction Status Date / Time hydroxyzine Allergy Severe EXCESSIVE Verified 07/17/20 10:12 DROWSINESS/SLEEPINESS AND CONFUSION codeine AdvReac Severe NAUSEA/VOMI Verified 07/17/20 10:12 TING acetaminophen [From Percocet] AdvReac Vomiting Verified 07/17/20 10:12 adhesive tape AdvReac Rash Verified 07/17/20 10:12 oxycodone [From Percocet] AdvReac Vomiting Verified 07/17/20 10:12 Review of Systems Review of Systems Narrative: Remainder of complete review of systems is otherwise unremarkable except for that included in the HPI. Patient History Medical History (Updated 07/17/20 @ 14:01 by Yuly Palomino MD) Acoustic neuroma Afib Arthritis Ataxia Cardiomegaly Elevated blood sugar History of anticoagulant use HLD (hyperlipidemia) HTN (hypertension) Hypercalcemia Hypothyroid Mitral regurgitation Osteopenia Pulmonary HTN Tricuspid regurgitation Surgical History History of cataract extraction History of hip replacement (2005) History of hysterectomy (1992) Social History household members: other Smoking Status: Never smoker alcohol intake: current Smoking Status: Never smoker alcohol intake frequency: 0-2 drinks per day Substance Use Type: does not use Exam Narrative Exam Narrative: General: Frail but in no acute distress. HEENT: Moist mucous membranes, normal sclera with reactive pupils, Neck: No JVD, supple Respiratory: Lungs are clear to auscultation, no wheezing no rales no rhonchi. Full and symmetrical air movement Cardiac: iregular rate and rhythm, no murmurs no bruits Abdomen: Soft, nontender, good bowel tones, no flank pain Skin: Warm and dry, no rashes Neurologic: Globally weak but no obvious asymmetries. Unstable gait NIH score = 0 Extremities: No trauma, well perfused Psych: Cooperative, flat affect Initial Vital Signs Initial Vital Signs: Vital Signs Temperature 97.3 F L 07/17/20 10:05 Pulse Rate 69 07/17/20 10:05 Respiratory Rate 14 07/17/20 10:05 Blood Pressure 194/85 H 07/17/20 10:05 Pulse Oximetry 97 07/17/20 10:05 Course Orders Ordered: ED Orders 07/17/20 10:25 Complete Blood Count AUTO DIFF Stat Comprehensive Metabolic Panel Stat Magnesium Stat Troponin I Stat 07/17/20 10:35 Urinalysis and Microscopic Stat 07/17/20 10:36 CT head/brain wo con Stat 07/17/20 12:05 Consult to Physical Therapy Evaluate & Treat 07/17/20 13:55 Consult to [employer] SAFETY PROGRAM COORDINATOR - Automobile Accessories Salesperson Stat Vital Signs Vital signs: Vital Signs - 8 hr 07/17/20 10:05 07/17/20 10:30 07/17/20 11:00 Temperature 97.3 F L Pulse Rate 69 63 70 Respiratory Rate 14 16 18 Blood Pressure 194/85 H 177/82 H 182/80 H Pulse Oximetry 97 96 96 07/17/20 12:00 Temperature Pulse Rate 67 Respiratory Rate 16 Blood Pressure 185/77 H Pulse Oximetry 96 MDM - Fall Medical Records Attestation: I reviewed the patient's medical records. Medical records narrative: MRI done in February 2020 for follow-up of left acoustic neuroma removal is unremarkable Echocardiogram done in February of 2020 with an ejection fraction of 65% an otherwise unremarkable Lab Data Attestation: I reviewed the patient's lab results. Result diagrams: 07/17/20 10:25 07/17/20 10:25 Labs: Lab Results 07/17/20 07/17/20 07/17/20 Range/Units 10:25 10:25 10:35 WBC 7.2 (4.5-11.0) X10^3/uL RBC 4.17 (4.0-5.2) X10^6/uL Hgb 12.8 (12.0-16.0) g/dL Hct 37.7 (36-46) % MCV 90.4 (80-100) fL MCH 30.6 (26-34) PG MCHC 33.9 (30-36) % RDW 13.7 (11.6-14.8) % Plt Count 230 (150-400) X10^3/uL Neut % (Auto) 71.3 (50-75) % Lymph % (Auto) 18.5 L (25-40) % [place] % (Auto) 7.8 (3-14) % Eos % (Auto) 1.6 L (2-4) % Baso % (Auto) 0.8 (0-2) % Neut # (Auto) 5100 (8612-0717) /uL Lymph # (Auto) 1300 (7202-1135) /uL [place] # (Auto) 600 (0-900) /uL Eos # (Auto) 100 (0-450) /uL Baso # (Auto) 100 (0-100) /uL Sodium 135 L (137-145) mmol/L Potassium 4.4 (3.4-5.1) mmol/L Chloride 101 (98-107) mmol/L Carbon Dioxide 26 (22-32) mmol/L BUN 17 (7-17) mg/dL Creatinine 0.79 (0.52-1.04) mg/dL Estimated GFR > 60.0 (>60) mL/min BUN/Creatinine Ratio 21.5 (6-22) Glucose 95 (80-110) mg/dL Calcium 10.5 H (8.4-10.2) mg/dL Magnesium 2.2 (1.6-2.3) mg/dL Total Bilirubin 1.9 H (0.2-1.3) mg/dL AST 35 (14-36) IU/L ALT 19 (<35) IU/L Alkaline Phosphatase 104 (38-126) U/L Troponin I < 0.012 (0.01-0.034) ng/mL Total Protein 7.9 (6.3-8.2) g/dL Albumin 4.5 (3.5-5.0) g/dL Globulin 3.4 (1.7-4.1) g/dL Albumin/Globulin Ratio 1.3 (1.0-2.8) Urine Color Yellow Urine Appearance Clear Urine pH 6.5 (4.5-8.0) Ur Specific [place] 1.015 (1.000-1.035) Urine Protein Negative (Negative) Urine Glucose (UA) Negative (Negative) g/dL Urine Ketones Negative (NEGATIVE) Urine Occult Blood Negative (Negative) Urine Nitrate Negative (Negative) Urine Bilirubin Negative (NEGATIVE) Urine Urobilinogen 0.2 (0.2) E.U./dL Ur Leukocyte Esterase Negative (NEGATIVE) Urine RBC None seen (0-5/HPF) Urine WBC None seen (0-5/HPF) Urine Bacteria None seen (None) Ur Culture Indicated? Cult not indicated Micro UA Comment Microscopic normal Imaging Data CT scan - head: Radiologist's Impression: FINDINGS: Image quality: Excellent. CSF spaces: Basal cisterns are patent. No extra-axial fluid collections. The ventricles are symmetric in size and shape. Brain: Prior postoperative change with volume loss is again seen involving the left cerebellum. No intracranial bleeds or masses. There is cerebral volume loss for age, with resultant ventricular and sulcal prominence. There are periventricular and deep white matter chronic small vessel ischemic changes. There is intracranial internal carotid artery atherosclerosis. Skull and face: Calvarium and visualized facial bones appear intact, without suspicious lesions. Left occipital craniectomy can be seen. Sinuses: Visualized sinuses and mastoids are clear. IMPRESSION: No acute intracranial hemorrhage is seen. No acute intracranial process is seen. Prior postoperative change, with volume loss seen involving the lateral aspect of the left cerebellum. Dictated by: Aubrey Moore M.D. on 07/17/2020 at 9:54 ECG Data Attestation: I personally reviewed and interpreted this ECG as follows: Interpretation: Atrial fibrillation at a rate of 66 Normal axis at 60 No acute ischemic changes MDM Narrative Medical decision making narrative: 80-year-old woman with progressive gait instability and memory issues presents after 2 falls. Workup is unremarkable with negative CT scan and negative lab work. There is no evidence of stroke, a intracranial hemorrhage, acute coronary syndrome, congestive heart failure, sepsis or other infection including urinary tract infection. Physical therapy has seen and evaluated her here in the emergency department and feels that she is safe for home discharge as long as she uses her walker 100% of the time. Will ask her primary care provider to discuss the pros and cons of continuing Eliquis at this time in light of her almost daily falls. Did have a very ethan discussion with both the patient and her daughter regarding continued safety of living independently at this point. Will ask our secondary social studies teacher to follow-up with suggestions for either additional home health help and help in beginning to look for alternative living situations whether they be memory units or simply Assisted Living. At this time patient is safe for home discharge Discharge Plan Departure Patient Disposition: Home Clinical Impression: Falls frequently, Gait instability Instructions: How to Prevent Falls Activity Restrictions/Additional Instructions: Your head CT today was free of any bleeding. With your frequent falls, you need to discuss with your primary care doctor the safety of continuing Eliquis. I am going to ask our secondary social studies teacher to contact you to see what additional help we may be able to offer in terms of either help at home or numbers to call to begin looking at alternative living situations that may be safer for you. Please feel free to return to the emergency department if you develop any new or worsening symptoms Prescriptions: No Action Eliquis 5 MG tablet 5 mg PO BID Qty: 0 RF: 0 trazodone 50 MG tablet 0.5 - 2 tab PO HSP PRN (Reason: Sleep) Qty: 0 RF: 0 carvedilol 25 mg Tablet 25 mg PO SEEINSTR RF: 0 amlodipine 2.5 mg Tablet 2.5 mg PO DAILY RF: 0 hydrocodone-acetaminophen 10-325 mg Tablet 1 tab PO Q4-6H PRN (Reason: Pain) RF: 0 spironolactone 25 mg Tablet 12.5 mg PO DAILY RF: 0 levothyroxine [Synthroid] 88 mcg Tablet 50 mcg PO DAILY RF: 0 atorvastatin 10 mg Tablet 10 mg PO DAILY RF: 0 hydrocodone-acetaminophen [[place]] 10-325 mg tablet 1 tab PO Q6H PRN (Reason: pain) Qty: 42 RF: 0 ascorbic acid (vitamin C) 1,000 mg Tablet 1,000 mg PO DAILY RF: 0 cholecalciferol (vitamin D3) [Vitamin D3] 50 mcg (2,000 unit) Capsule 2,000 unit PO DAILY RF: 0 Referrals: Marycruz Alvarez PA-C [Primary Care Provider] -
[2020-07-17 10:30] VITALS: BP 177/82; PULSE 63; RESP 16; O2SAT 96
--- NOTE | 2020-07-17 10:36 | DI.CT.S_ITS ---
PROCEDURE: CT HEAD/BRAIN WO CON INDICATIONS: fall x2 in 48hrs, on eliquis, hit head both times TECHNIQUE: Noncontrast 4.5 mm thick angled axial sections acquired from the foramen magnum to the vertex, with coronal and sagittal reformats. For radiation dose reduction, the following was used: automated exposure control, adjustment of mA and/or kV according to patient size. COMPARISON: [facility], MR, MR HEAD/BRAIN WO/W CON, 03/28/2020, 11:28. [facility], CT, CT HEAD/BRAIN WO CON, 02/22/2020, 10:31. [facility], CT, CT HEAD/BRAIN WO CON, 01/19/2020, 15:24. [facility], CT, CT HEAD/BRAIN WO CON, 03/07/2020, 9:10. FINDINGS: Image quality: Excellent. CSF spaces: Basal cisterns are patent. No extra-axial fluid collections. The ventricles are symmetric in size and shape. Brain: Prior postoperative change with volume loss is again seen involving the left cerebellum. No intracranial bleeds or masses. There is cerebral volume loss for age, with resultant ventricular and sulcal prominence. There are periventricular and deep white matter chronic small vessel ischemic changes. There is intracranial internal carotid artery atherosclerosis. Skull and face: Calvarium and visualized facial bones appear intact, without suspicious lesions. Left occipital craniectomy can be seen. Sinuses: Visualized sinuses and mastoids are clear. IMPRESSION: No acute intracranial hemorrhage is seen. No acute intracranial process is seen. Prior postoperative change, with volume loss seen involving the lateral aspect of the left cerebellum. Dictated by: Aubrey Moore M.D. on 07/17/2020 at 9:54 Approved by: Aubrey Moore M.D. on 07/17/2020 at 9:56
[2020-07-17 10:47] LABS: Add Manual Diff / Slide Review NO; Basophils Absolute Auto 100 /uL (0-100); Basophils Percent Auto 0.8 % (0-2); Eosinophils Absolute Auto 100 /uL (0-450); Eosinophils Percent Auto 1.6 % (2-4); Hematocrit 37.7 % (36-46); Hemoglobin 12.8 g/dL (12.0-16.0); Lymphocytes Absolute Auto 1300 /uL (1100-4500); Lymphocytes Percent Auto 18.5 % (25-40); Mean Corpuscular HGB Conc 33.9 % (30-36); Mean Corpuscular Hemoglobin 30.6 PG (26-34); Mean Corpuscular Volume 90.4 fL (80-100); Monocytes Absolute Auto 600 /uL (0-900); Monocytes Percent Auto 7.8 % (3-14); Neutrophils Absolute Auto 5100 /uL (1500-7000); Neutrophils Percent Auto 71.3 % (50-75); Platelet Count 230 X10^3/uL (150-400); Red Blood Cell Count 4.17 X10^6/uL (4.0-5.2); Red Cell Distribution Width 13.7 % (11.6-14.8); White Blood Cell Count 7.2 X10^3/uL (4.5-11.0)
--- NOTE | 2020-07-17 10:48 | PC.NURSE ---
pt has been getting work up for neuro and cognitive issues recently.
[2020-07-17 10:50] LABS: Bacteria Urine None Seen; RBC Urine None Seen (0-5/HPF); WBC Urine None Seen (0-5/HPF)
[2020-07-17 10:51] LABS: Appearance Urine UA CLEAR; Bilirubin Urine UA NEGATIVE (NEGATIVE); Color Urine UA YELLOW; Glucose Urine UA NEGATIVE (Negative); Ketones Urine UA NEGATIVE (NEGATIVE); Leukocyte Esterase Urine UA NEGATIVE (NEGATIVE); Nitrite Urine UA NEGATIVE (Negative); Occult Blood Urine UA NEGATIVE (Negative); Protein Urine UA NEGATIVE (Negative); Specific Gravity Urine UA 1.015 (1.000-1.035); Urobilinogen Urine UA 0.2 E.U./dL (0.2)
[2020-07-17 10:52] LABS: pH Urine UA 6.5 (4.5-8.0)
[2020-07-17 10:55] LABS: Alanine Aminotransferase 19 IU/L (<35); Albumin 4.5 g/dL (3.5-5.0); Albumin Globulin Ratio 1.3 (1.0-2.8); Alkaline Phosphatase 104 U/L (38-126); Aspartate Aminotransferase 35 IU/L (14-36); BUN Creatinine Ratio 21.5 (6-22); Bilirubin Total 1.9 mg/dL (0.2-1.3); Blood Urea Nitrogen 17 mg/dL (7-17); Calcium 10.5 mg/dL (8.4-10.2); Carbon Dioxide 26 mmol/L (22-32); Chloride 101 mmol/L (98-107); Estimated Glomerular Filt Rate > 60.0 mL/min (>60); Globulin 3.4 g/dL (1.7-4.1); Glucose 95 mg/dL (80-110); HEMOLYSIS < 15 (0-50); Magnesium 2.2 mg/dL (1.6-2.3); Potassium 4.4 mmol/L (3.4-5.1); Sodium 135 mmol/L (137-145); Total Protein 7.9 g/dL (6.3-8.2)
[2020-07-17 11:00] VITALS: BP 182/80; PULSE 70; RESP 18; O2SAT 96
[2020-07-17 11:07] LABS: Troponin I < 0.012 ng/mL (0.01-0.034)
[2020-07-17 11:18] LABS: Culture Indicated Urine Cult Not Indicated; Urine Comments Microscopic Normal
[2020-07-17 12:00] VITALS: BP 185/77; PULSE 67; RESP 16; O2SAT 96
--- NOTE | 2020-07-17 13:04 | PC.NURSE ---
Physical therapy in room with pt.
--- NOTE | 2020-07-17 13:40 | PT.IIE ---
Surgical History (Last Reviewed 12/11/19 @ 15:54 by Jeremiah Hubbard DO) History of cataract extraction History of hip replacement (2005) History of hysterectomy (1992) Medical History (Last Reviewed 03/07/20 @ 09:55 by Blayne Tom DO) Acoustic neuroma Afib Arthritis Ataxia Cardiomegaly Elevated blood sugar History of anticoagulant use HLD (hyperlipidemia) HTN (hypertension) Hypercalcemia Hypothyroid Mitral regurgitation Osteopenia Pulmonary HTN Tricuspid regurgitation Physical Therapy Inpatient Evaluation/Re-Eval M1 PT/OT-IP Prior Functional Status Start: 07/17/20 12:11 Freq: Status: Active Protocol: Document 07/17/20 13:40 DLM (Rec: 07/17/20 14:09 DLM [id number]) Medical Review Prior Functional Status Medical History Reviewed Yes Diet/Fluid Consistency Regular Communication WFL, recent reports of decreased memory and cognition , saw a Neurologist Mobility and Gait Independent gait without device before right foot surgery, using a 4WW since sx 12/09/19, 4 falls reported since her foot sx Activities of Daily Living and IADL's Independent with ADL's, stands in shower, raised toilet with rails in bathroom since foot sx, has social welfare administrator for cleaning, daughter helps with groceries and drives to appointments, has hired assist for yard work Social History Household Members none Living Arrangements House Number of Floors (Floors) One Floor Number of Stairs To Enter/Railing? none Home Environment High Toilet,Walk in Shower Home Equipment Four Wheel Walker,Straight Cane,Raised Toilet Seat w/ Armrests,Hand Held Shower,Grab Bars Near Toilet Employment Status Retired Additional Social History Comment hx of not sleeping well M2 PT-IP Current Condition Start: 07/17/20 12:11 Freq: Status: Active Protocol: Document 07/17/20 13:40 DLM (Rec: 07/17/20 14:09 DLM [id number]) Physical Therapy Current Condition Current Condition Evaluation Date 07/17/20 Treatment Diagnosis impaired balance and gait Onset Date 07/17/20 Precautions Other Precautions hx of falls M3 PT-IP Subjective Start: 07/17/20 12:11 Freq: Status: Active Protocol: Document 07/17/20 13:40 DLM (Rec: 07/17/20 14:09 DLM [id number]) Subjective Physical Therapy Visit Type Type Initial Evaluation Visit Start Time 12:35 Visit Stop Time 13:37 Total Visit Minutes 62 Number of TISSUE COORDINATOR Visits 0 Physical Therapy Visit Comments Patient Comments She describes two recent falls , she is not sure why she is falling Patient Goals return home Therapy Pain Assessment Pain Present Pain Present Denied Pain M4 PT-IP Mobility and Gait Start: 07/17/20 12:11 Freq: Status: Active Protocol: Document 07/17/20 13:40 DLM (Rec: 07/17/20 14:09 [facility] [id number]) PT-Bed Mobility Assessment Supine to Sit Supine to Sit Independent Sit to Supine Sit to Supine Independent Scooting Scooting to Edge of Bed Independent Scooting Up and Down in Bed Independent PT-Transfer Assessment Sit to and From Stand Sit to and from Stand Independent,Use of Upper Extremities Equipment Transfer Assistive Device 4 Wheeled Walker Transfers Transfer Destination Bed Transfer Technique Stand Step Pivot Transfer Ability Level of Assist Independent Gait Assessment Gait Gait Assistance Required: Independent Distance (Feet) 300 Assistive Devices Assistive Device 4 Wheeled Walker Factors Limiting Gait Function Factors Limiting Gait Function Decreased Activity Tolerance, Poor Balance Comments Gait Comments slow pace of gait, she intermittently runs into furniture but can manage 4WW to get around obstacles, she intermittently leaves 4WW to take two steps to bed, Daughter reports shuffling gait is common at home, did not observe shuffling this visit PT-Balance Assessment Sitting Balance and Reactions Static Sitting Balance Ability Normal Dynamic Sitting Balance Ability Normal Standing Balance and Reactions Static Standing Balance Ability Fair Dynamic Standing Balance Ability Fair Balance Tests Single Limb Standing left can hold for 2 sec,unable to hold on right Romberg mod sway eyes closed w/ normal DARREN, unable narrow DARREN Tandem Standing unable to hold Comments Other Balance Tests/Deviations/Treatment increased sway standing with : head motions, no dizziness reported this visit M5 PT-IP Objective Assessments Start: 07/17/20 12:11 Freq: Status: Active Protocol: Document 07/17/20 13:40 DLM (Rec: 07/17/20 14:09 [facility] [id number]) Orientation Orientation/Cognition Level of Alertness Alert Orientation Name,Age,Birthday,Month,Date, Year,Day of Week,Place, Situation Language Function Ability Hard of Hearing Memory Description Short Term Impaired Comments decreased hearing left side since acoustic neuroma Gross Range of Motion Upper Extremity ROM Assessment Within Functional Limits Lower Extremity ROM Assessment Within Functional Limits Strength Upper Extremity Strength Assessment Within Functional Limits Lower Extremity Strength Assessment Bilaterally Impaired Hip 4/5 Knee 4/5 Ankle DF 4+/5 Comments Strength Comments right great toe fused during foot surgery 11/2019 Coordination Assessment Gross Coordination Gross Coordination WNL Sensation Assessment Sensation Gross Sensation WNL Muscle Tone Muscle Tone WNL Yes M6 PT-IP Treatment Start: 07/17/20 12:11 Freq: Status: Active Protocol: Document 07/17/20 13:40 DLM (Rec: 07/17/20 14:09 DLM [id number]) Physical Therapy Treatment Education Education Provided Safety Other Treatments Other Treatment Performed -recommend she use 4WW at all times, adjusted height of 4WW one notch lower - discussed balance impairments with pt and her Daughter M7 PT-IP Assessment and Plan Start: 07/17/20 12:11 Freq: Status: Active Protocol: Document 07/17/20 13:40 DLM (Rec: 07/17/20 14:09 DLM [id number]) PT Summary Assessment and Plan Potential Rehabilitation Potential Good Status of Condition at Evaluation Evolving Summary Impairments Strength,Balance Progress Towards Goals Safe For Discharge Assessment Summary Sparkle is alert and shows good participation in physical therapy. She has decreased memory and insite and can give little details about her recent falls. She does report she has been trying to get away from using the 4WW which may be a contributing factor in her falls. She presents with safe use of the 4WW for gait at this time. Clinical testing shows significant standing balance impairments that are multi-factoral. The timing of her recent increase in falls suggest that her foot surgery in Nov 2019 may have contributed to a decline in her function. Recommend she use the 4WW at all time for gait until she can improve her standing balance. Her hx of acoustic neuroma removal makes her balance more complicated. Her cognitive impairments may be making it harder for her to compensate for changes in her health/function. Increased caregiver assist at home may also help decrease falls risk. Treatment Plan Other Recommendations and Next Treatment defer further balance and gait Focus training to out-pt PT Recommendations To Nursing Amount of Assist Needed Standby Assistance Discharge Recommendations PT Discharge Recommendations Home,Home Health,Outpatient PT Other Discharge Recommendations needs further physical therapy to address her balance impairments Transportation Needs at Discharge Private Vehicle
== END 2020-07-17 14:00 | disposition home or self-care (01) ==
PROVIDERS: Emergency Provider Emergency Medicine; PCP Physician Assistant
DX: R26.81 Unsteadiness on feet (principal); R29.6 Repeated falls; I48.91 Unspecified atrial fibrillation; Z79.01 Long term (current) use of anticoagulants
CPT/HCPCS: 36415; 70450; 80053; 81001; 83735; 84484; 85025; 93005; 93010; 97162; 99284

== ENCOUNTER → 2020-08-17 19:48 | Outpatient (ROUT) | payer MEDICARE, SELFPAY ==
[2020-08-17 20:02] LABS: Add Manual Diff / Slide Review NO; Basophils Absolute Auto 100 /uL (0-100); Basophils Percent Auto 1.1 % (0-2); Eosinophils Absolute Auto 100 /uL (0-450); Eosinophils Percent Auto 1.3 % (2-4); Hematocrit 35.9 % (36-46); Hemoglobin 12.4 g/dL (12.0-16.0); Lymphocytes Absolute Auto 1400 /uL (1100-4500); Lymphocytes Percent Auto 20.6 % (25-40); Mean Corpuscular HGB Conc 34.5 % (30-36); Mean Corpuscular Hemoglobin 31.1 PG (26-34); Mean Corpuscular Volume 90.1 fL (80-100); Monocytes Absolute Auto 500 /uL (0-900); Monocytes Percent Auto 7.8 % (3-14); Neutrophils Absolute Auto 4700 /uL (1500-7000); Neutrophils Percent Auto 69.2 % (50-75); Platelet Count 236 X10^3/uL (150-400); Red Blood Cell Count 3.98 X10^6/uL (4.0-5.2); White Blood Cell Count 6.8 X10^3/uL (4.5-11.0)
[2020-08-17 20:06] LABS: Alanine Aminotransferase 17 IU/L (<35); Albumin 4.1 g/dL (3.5-5.0); Albumin Globulin Ratio 1.2 (1.0-2.8); Alkaline Phosphatase 94 U/L (38-126); Aspartate Aminotransferase 30 IU/L (14-36); Bilirubin Total 1.5 mg/dL (0.2-1.3); Blood Urea Nitrogen 18 mg/dL (7-17); Calcium 10.1 mg/dL (8.4-10.2); Carbon Dioxide 27 mmol/L (22-32); Chloride 99 mmol/L (98-107); Estimated Glomerular Filt Rate > 60.0 mL/min (>60); Globulin 3.3 g/dL (1.7-4.1); Glucose 96 mg/dL (80-110); HEMOLYSIS < 15 (0-50); Magnesium 2.2 mg/dL (1.6-2.3); Sodium 132 mmol/L (137-145); Total Protein 7.4 g/dL (6.3-8.2)
[2020-08-17 20:07] LABS: Potassium 4.3 mmol/L (3.4-5.1)
[2020-08-19 15:45] LABS: Parathyroid Hormone Int 53 pg/mL (15-65)
== END ==
PROVIDERS: PCP Physician Assistant; Visit Provider Physician Assistant
DX: I48.20 Chronic atrial fibrillation, unspecified (principal); E87.1 Hypo-osmolality and hyponatremia; E03.9 Hypothyroidism, unspecified; R23.1 Pallor; E83.52 Hypercalcemia
CPT/HCPCS: 36415; 80053; 83735; 83970; 84443; 85025

== ENCOUNTER 2020-09-19 16:00 | Outpatient (RCR) | payer MEDICARE, SELFPAY ==
[2020-07-31 13:45] VITALS: BP 132/78
--- NOTE | 2020-07-31 14:00 | PT.OPPOC ---
Physical, Occupational & Speech Therapy At [facility] Current Diagnoses Other abnormalities of gait and mobility (07/31/20) Dizziness and giddiness (07/31/20) Visit Care Team Role Provider Type Marycruz Alvarez PA-C Attending Provider Non-Staff Primary Care Provider Referring Provider Specialty: Internal Medicine Address: [address] [place] [address], [facility] Email: [email or web address] Plan Of Care PT-OP-T Assessment and Plan Start: 07/31/20 12:47 Freq: Status: Active Protocol: Document 07/31/20 13:45 AW (Rec: 08/01/20 09:24 AW [email or web address]) Physical Therapy Assessment Rehab Potential Rehabilitation Potential Good Evaluation Complexity Number of Personal Factors/Comorbidities 1-2 Number of Body Systems Impaired 3 Clinical Presentation at Evaluation Stable Impairments Impairments Balance,Coordination, Functional Activities, Functional Mobility,Gait,Pain, Posture,Sensation,Strength, Transfers,Vestibular Other Concerns Fall Risk High per Tinetti score Age Related Concerns Pt lives independently, has mild cognitive impairment, and may have poor carryover. Barriers to Rehabilitation Chronicity of deficits may affect treatment outcomes Goals Three Impairment balance Short Term Goal (STG) Pt will improve Tinetti composite score to 19 or greater to reduce falls risk to moderate. STG Duration 6 weeks -September 11, 2020 Software Engineer Kernel Goal (LTG) Pt will improve Tinetti composite score to 26 or greater to reduce falls risk to low. LTG Duration 3 months - October 31, 2020 Two Impairment gait Short Term Goal (STG) Pt will improve step length to each foot fully passing the other at initial contact with LRAD. STG Duration 6 weeks -September 11, 2020 Software Engineer Kernel Goal (LTG) Pt will improve self-selected gait speed to 0.8 m/s or greater with LRAD for improved safety with in-home and community ambulation. LTG Duration 3 months - October 31, 2020 One Impairment Pt lacks HEP Short Term Goal (STG) Pt will be independent with HEP to support therapy services provided in clinic. STG Duration 4 weeks - August 28, 2020 Assessment Summary Assessment Sparkle is an 80 yo woman presenting to outpatient PT as a moderate complexity evaluation with complaints of multiple falls over the past year. She had great toe fusion on the right foot last year and began to use a 4WW at that time but was independent prior to surgery. She has decreased memory but denies forgetting to use her walker. Balance deficits appear to be multi-factorial. Her vision is well-corrected. She has history of acoustic neuroma removal and presents with mild bilateral horizontal nystagmus at rest. Head thrust test is positive for mild lag (worse with left rotation), suggesting impairment of her vestibulo-occular reflex which may be detracting from her balance. Tinetti composite score of ... confirms Sparkle is at high risk for falls. Skilled physical therapy aimed at improving her strength, gait, and self-efficacy will reduce her overall risk. Physical Therapy Plan Frequency and Duration Frequency of Treatment 2x/Week Duration of Treatment 3 months Plan of Care Start Date 07/31/20 Plan of Care End Date 10/31/20 Therapeutic Interventions Therapeutic Interventions Balance Training,Coordination Training,Gait Training,Home Exercise Program,Neuromuscular Re-education,Patient/ Caregiver Education,Self-Care/ Home Management,Sensory Integration,Therapeutic Activities,Therapeutic Exercises,Vestibular Rehabilitation Next Visit Focus/Plan Next Note Type Treatment Note Next Visit Plan Initiate sitting VOR, standing balance activities, gait training aimed at amplitude. Plan of Care Dates Plan of Care Start Date 07/31/20 Plan of Care End Date 10/31/20 Electronically Signed by: Alissa Valencia PT 08/01/20 0927 Please Sign and Return: I have reviewed this Plan of Care and certify that the skilled therapy services above are required to meet the patient?s needs. Physician Signature Date Printed Name and Credentials Clinical Instructor Signature Printed Name and Credentials
--- NOTE | 2020-07-31 15:00 | PT.OPPOC ---
Physical, Occupational & Speech Therapy At [facility] Current Diagnoses Other abnormalities of gait and mobility (07/31/20) Dizziness and giddiness (07/31/20) Visit Care Team Role Provider Type Marycruz Alvarez PA-C Attending Provider Non-Staff Primary Care Provider Referring Provider Specialty: Internal Medicine Address: [address] [place] [address], [facility] Email: [email or web address] Plan Of Care PT-OP-T Assessment and Plan Start: 07/31/20 12:47 Freq: Status: Active Protocol: Document 07/31/20 13:45 AW (Rec: 08/01/20 09:24 AW [email or web address]) Physical Therapy Assessment Rehab Potential Rehabilitation Potential Good Evaluation Complexity Number of Personal Factors/Comorbidities 1-2 Number of Body Systems Impaired 3 Clinical Presentation at Evaluation Stable Impairments Impairments Balance,Coordination, Functional Activities, Functional Mobility,Gait,Pain, Posture,Sensation,Strength, Transfers,Vestibular Other Concerns Fall Risk High per Tinetti score Age Related Concerns Pt lives independently, has mild cognitive impairment, and may have poor carryover. Barriers to Rehabilitation Chronicity of deficits may affect treatment outcomes Goals Three Impairment balance Short Term Goal (STG) Pt will improve Tinetti composite score to 19 or greater to reduce falls risk to moderate. STG Duration 6 weeks -September 11, 2020 Sales Operations Coordinator Goal (LTG) Pt will improve Tinetti composite score to 26 or greater to reduce falls risk to low. LTG Duration 3 months - October 31, 2020 Two Impairment gait Short Term Goal (STG) Pt will improve step length to each foot fully passing the other at initial contact with LRAD. STG Duration 6 weeks -September 11, 2020 Sales Operations Coordinator Goal (LTG) Pt will improve self-selected gait speed to 0.8 m/s or greater with LRAD for improved safety with in-home and community ambulation. LTG Duration 3 months - October 31, 2020 One Impairment Pt lacks HEP Short Term Goal (STG) Pt will be independent with HEP to support therapy services provided in clinic. STG Duration 4 weeks - August 28, 2020 Assessment Summary Assessment Sparkle is an 80 yo woman presenting to outpatient PT as a moderate complexity evaluation with complaints of multiple falls over the past year. She had great toe fusion on the right foot last year and began to use a 4WW at that time but was independent prior to surgery. She has decreased memory but denies forgetting to use her walker. Balance deficits appear to be multi-factorial. Her vision is well-corrected. She has history of acoustic neuroma removal and presents with mild bilateral horizontal nystagmus at rest. Head thrust test is positive for mild lag (worse with left rotation), suggesting impairment of her vestibulo-occular reflex which may be detracting from her balance. Tinetti composite score of 15 confirms Sparkle is at high risk for falls. Skilled physical therapy aimed at improving her strength, gait, and self-efficacy will reduce her overall risk. Physical Therapy Plan Frequency and Duration Frequency of Treatment 2x/Week Duration of Treatment 3 months Plan of Care Start Date 07/31/20 Plan of Care End Date 10/31/20 Therapeutic Interventions Therapeutic Interventions Balance Training,Coordination Training,Gait Training,Home Exercise Program,Neuromuscular Re-education,Patient/ Caregiver Education,Self-Care/ Home Management,Sensory Integration,Therapeutic Activities,Therapeutic Exercises,Vestibular Rehabilitation Next Visit Focus/Plan Next Note Type Treatment Note Next Visit Plan Initiate sitting VOR, standing balance activities, gait training aimed at amplitude. Plan of Care Dates Plan of Care Start Date 07/31/20 Plan of Care End Date 10/31/20 Electronically Signed by: Alissa Valencia PT 08/01/20 0931 Please Sign and Return: I have reviewed this Plan of Care and certify that the skilled therapy services above are required to meet the patient?s needs. Physician Signature Date Printed Name and Credentials Clinical Instructor Signature Printed Name and Credentials
--- NOTE | 2020-07-31 15:00 | PT.OIE ---
Current Diagnoses Other abnormalities of gait and mobility (07/31/20) Dizziness and giddiness (07/31/20) Past Medical History (Last Reviewed 03/07/20 @ 09:55 by Blayne Tom DO) Acoustic neuroma Afib Arthritis Ataxia Cardiomegaly Elevated blood sugar History of anticoagulant use HLD (hyperlipidemia) HTN (hypertension) Hypercalcemia Hypothyroid Mitral regurgitation Osteopenia Pulmonary HTN Tricuspid regurgitation Past Surgical History (Last Reviewed 12/11/19 @ 15:54 by Jeremiah Hubbard DO) History of cataract extraction History of hip replacement (2005) History of hysterectomy (1992) Visit Care Team Role Provider Type Marycruz Alvarez PA-C Attending Provider Non-Staff Primary Care Provider Referring Provider Specialty: Internal Medicine Address: [address] [place] [address], [facility] Email: [email or web address] Physical Therapy Initial Evaluation PT-OP-A Visit Information Start: 07/31/20 12:47 Freq: Status: Active Protocol: Document 07/31/20 13:45 AW (Rec: 07/31/20 13:53 AW [email or web address]) Out-Patient Physical Therapy Visit Information Visit Information Visit Type Initial Evaluation Visit Note Pt arrived with daughter, Reyna, who remained throughout evaluation Visit Start Time 13:00 Visit Stop Time 13:45 Total Visit Minutes 45 Visit Number 1 Evaluation Information Evaluation Date 07/31/20 PT-OP-B Current Condition Start: 07/31/20 12:47 Freq: Status: Active Protocol: Document 07/31/20 13:45 AW (Rec: 07/31/20 13:53 AW [id number]) Current Condition History of Current Condition Onset Date couple of years Current Complaints poor balance, especially in standing History of Current Condition Pt reports ~6 falls in the past one year. She had foot surgery - hammertoe correction - in November 2019 (Mike ) and started using the walker after that. She fell twice within a few days in June and was evaluated her in ED including PT evaluation which recommended full-time use of FWW. Pt arrived today with SPC . Pt reports she sometimes feels not centered and occasionally twirly but denies any room spinning or boat rocking sensation. She has had bilateral BROOKE. She has what she describes as severe arthritis which mostly manifests in low back pain after increased activity. Pt has history of acoustic neuroma ~30 years ago. 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 Prior Treatments and Tests ED 07/17/20 following two falls with head trauma. PT recommended d/c home with FWW 100% of the time. Prior PT following BROOKE's but none directed at balance. 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 Pt rates her own memory at 40% of baseline. She struggles to remember events from long ago . She denies forgetting to use her walker but does admit that she does not like to use it. Treatment Goals Patient/Caregiver Goals Improve standing and walking confidence preferably without AD. Improve strength. Pt reports there have been ongoing conversations about what to do with mother. Pt feels like she lacks direction , is unenthusiastic about moving to [facility] but would consider it if necessary. Sister and brother in law have offered for pt to live with them in [place] which she considers an attractive offer. 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 Current Functional Impairments (Reported) Functional Limitations- ADL's SBA required for showers Functional Limitations- Mobility/Gait Pt begrudgingly using FWW for mobility especially for trips to the bathroom at night. Functional Limitations- Recreation/ Pt's daughter, Reyna, lives Hobbies in the area, and checks on her frequently. Functional Limitations- Other Reduced confidence in balance and gait. Personal Factors Other Personal Factors That May Effect Family dynamics Therapy/Recovery PT-OP-D Balance Start: 07/31/20 12:47 Freq: Status: Active Protocol: Document 07/31/20 13:45 AW (Rec: 07/31/20 17:57 AW [email or web address]) OP-PT Balance Assessment Sitting Balance Static Sitting Balance Ability Good Dynamic Sitting Balance Ability Good Sitting Balance Comments Pt sits unsupported on treatment table and is able to reach forward to pick item up off the floor. Standing Balance Static Standing Balance Ability Fair Dynamic Standing Balance Ability Poor Device Used SPC Tinetti Balance Assessment Sitting Balance Sitting Balance Steady, safe Arising from Chair Ability to Arise Able, uses arms to help Attempts to Arise Able, requires >1 attempt Standing Balance Immediate Standing Balance Steady with support Standing Balance Steady, wide stance Nudged Response Staggers, catches self Standing with Eyes Closed Unsteady Turning Step Pattern Turning 360 Degrees Continuous steps Stability Turning 360 Degrees Unsteady, grabs/staggers Sitting Down Sitting Down Uses arms or unsteady Gait and Step Initiation of Gait No hesitancy Right Foot Step Length Does not pass stance ft. Right Foot Step Height Completely clears floor Left Foot Step Length Does not pass stance foot Left Foot Step Height Completely clears floor Step Description Step Symmetry Step length not equal Step Continuity Steps appear continuous Gait Description Path Description Mild/moderate deviation Trunk Description No sway but posturing Walking Stance Heels together Scoring and Interpretation Tinetti Composite Score (points) 15 Interpretation of Scores High risk for falls(< 19) Alexander Fall Scale Copyright Permission PT-OP-G Mobility & Gait Start: 07/31/20 12:47 Freq: Status: Active Protocol: Document 07/31/20 13:45 AW (Rec: 07/31/20 17:57 AW [email or web address]) OP Mobility Evaluation Bed Mobility Supine to and from Sit close SBA Transfers Sit to Stand SBA Bed to Chair Transfers SBA OP Gait Assessment Gait Gait Assistance Required: Standby Assistance Distance (Feet) 100 Assistive Devices Assistive Device Straight Cane Gait Deviations General Gait Pattern Decreased Stride Length, Decreased Feet Clearance, Festinating,Flexed Trunk,Step- to Gait Factors Limiting Gait Function Factors Limiting Gait Function Decreased Strength,Poor Balance Comments Gait Comments Pt ambulated with SPC, increased knee and trunk flexion. With SPC, pt has short shuffling, inconsistent steps. PT-OP-H Neuro Start: 07/31/20 12:47 Freq: Status: Active Protocol: Document 07/31/20 13:45 AW (Rec: 07/31/20 17:57 AW [email or web address]) Deep Tendon Reflex & Clonus Assessment Deep Tendon Reflex Bilateral Achilles Deep Tendon Reflex 2+ Normal Bilateral Patellar Deep Tendon Reflex 2+ Normal Bilateral Bicep Deep Tendon Reflex 2+ Normal Vital Signs Blood Pressure Sitting Blood Pressure (90/60-120/80 mmHg) 132/78 H Blood Pressure Source Manual Cuff,Left Upper Extremity PT-OP-J Posture/Palpation/Skin Start: 07/31/20 12:47 Freq: Status: Active Protocol: Document 07/31/20 13:45 AW (Rec: 07/31/20 17:57 AW [email or web address]) Posture Evaluation Comments Posture Comments Pt with forward head, flexed posture, increased kyphosis, stands with increased flexion bilateral knees. PT-OP-K Range of Motion Start: 07/31/20 12:47 Freq: Status: Active Protocol: Document 07/31/20 13:45 AW (Rec: 07/31/20 17:57 AW [email or web address]) Hip Goniometric Range of Motion Hip ROM Limitations Comments All hip ROM WFL Knee Goniometric Range of Motion Knee ROM Limitations Comments All knee ROM WFL Ankle and Foot Goniometric Range of Motion Ankle and Foot ROM Limitations Comments All ankle ROM WFL Toe Range of Motion Toes ROM Limitations Comments R great toe fused during surgery November 2019 PT-OP-M Strength Start: 07/31/20 12:47 Freq: Status: Active Protocol: Document 07/31/20 13:45 AW (Rec: 07/31/20 17:57 AW [email or web address]) Shoulder Strength Shoulder Manual Muscle Testing bilateral Comments B shoulders grossly 4/5 all planes Hip Strength Hip Manual Muscle Testing bilateral Flexion (L2) 4 Good Extension (S1) 4- Good- Abduction 4- Good- External Rotation 4- Good- Internal Rotation 4- Good- Knee Strength Knee Manual Muscle Testing bilateral Flexion (S2) 4- Good- Extension (L3) 4+ Good+ Ankle/Foot Strength Ankle and Foot Manual Muscle Testing bilateral Comments B ankles grossly 4/5 bilaterally PT-OP-O Vestibular Start: 07/31/20 12:47 Freq: Status: Active Protocol: Document 07/31/20 13:45 AW (Rec: 08/01/20 08:52 AW [email or web address]) Vestibular Assessment Comments Vestibular Comments Pt has mild bilateral horizontal nystagmus at rest and with with gaze each direction. Head thrust test positive for mild lag (worse with rotation to the left). PT-OP-T Assessment and Plan Start: 07/31/20 12:47 Freq: Status: Active Protocol: Document 07/31/20 13:45 AW (Rec: 08/01/20 09:24 AW [email or web address]) Physical Therapy Assessment Rehab Potential Rehabilitation Potential Good Evaluation Complexity Number of Personal Factors/Comorbidities 1-2 Number of Body Systems Impaired 3 Clinical Presentation at Evaluation Stable Impairments Impairments Balance,Coordination, Functional Activities, Functional Mobility,Gait,Pain, Posture,Sensation,Strength, Transfers,Vestibular Other Concerns Fall Risk High per Tinetti score Age Related Concerns Pt lives independently, has mild cognitive impairment, and may have poor carryover. Barriers to Rehabilitation Chronicity of deficits may affect treatment outcomes Goals Three Impairment balance Short Term Goal (STG) Pt will improve Tinetti composite score to 19 or greater to reduce falls risk to moderate. STG Duration 6 weeks -September 11, 2020 Stone Banker Goal (LTG) Pt will improve Tinetti composite score to 26 or greater to reduce falls risk to low. LTG Duration 3 months - October 31, 2020 Two Impairment gait Short Term Goal (STG) Pt will improve step length to each foot fully passing the other at initial contact with LRAD. STG Duration 6 weeks -September 11, 2020 Intermediate Goal (LTG) Pt will improve self-selected gait speed to 0.8 m/s or greater with LRAD for improved safety with in-home and community ambulation. LTG Duration 3 months - October 31, 2020 One Impairment Pt lacks HEP Short Term Goal (STG) Pt will be independent with HEP to support therapy services provided in clinic. STG Duration 4 weeks - August 28, 2020 Assessment Summary Assessment Sparkle is an 80 yo woman presenting to outpatient PT as a moderate complexity evaluation with complaints of multiple falls over the past year. She had great toe fusion on the right foot last year and began to use a 4WW at that time but was independent prior to surgery. She has decreased memory but denies forgetting to use her walker. Balance deficits appear to be multi-factorial. Her vision is well-corrected. She has history of acoustic neuroma removal and presents with mild bilateral horizontal nystagmus at rest. Head thrust test is positive for mild lag (worse with left rotation), suggesting impairment of her vestibulo-occular reflex which may be detracting from her balance. Tinetti composite score of 15 confirms Sparkle is at high risk for falls. Skilled physical therapy aimed at improving her strength, gait, and self-efficacy will reduce her overall risk. Physical Therapy Plan Frequency and Duration Frequency of Treatment 2x/Week Duration of Treatment 3 months Plan of Care Start Date 07/31/20 Plan of Care End Date 10/31/20 Therapeutic Interventions Therapeutic Interventions Balance Training,Coordination Training,Gait Training,Home Exercise Program,Neuromuscular Re-education,Patient/ Caregiver Education,Self-Care/ Home Management,Sensory Integration,Therapeutic Activities,Therapeutic Exercises,Vestibular Rehabilitation Next Visit Focus/Plan Next Note Type Treatment Note Next Visit Plan Initiate sitting VOR, standing balance activities, gait training aimed at amplitude.
--- NOTE | 2020-08-07 13:45 | PT.OTN ---
Current Diagnoses Other abnormalities of gait and mobility (08/07/20) Dizziness and giddiness (08/07/20) Physical Therapy Treatment Note PT-OP-A Visit Information Start: 07/31/20 12:47 Freq: Status: Active Protocol: Document 08/07/20 13:45 AW (Rec: 08/07/20 13:48 AW [id number]) Out-Patient Physical Therapy Visit Information Visit Information Visit Type Treatment Note Visit Start Time 13:00 Visit Stop Time 13:45 Total Visit Minutes 45 Visit Number 1 Evaluation Information Evaluation Date 07/31/20 PT-OP-B Current Condition Start: 07/31/20 12:47 Freq: Status: Active Protocol: Document 07/31/20 13:45 AW (Rec: 07/31/20 13:53 AW [id number]) Current Condition History of Current Condition Onset Date couple of years Current Complaints poor balance, especially in standing History of Current Condition Pt reports ~6 falls in the past one year. She had foot surgery - hammertoe correction - in November 2019 (Mike ) and started using the walker after that. She fell twice within a few days in June and was evaluated her in ED including PT evaluation which recommended full-time use of FWW. Pt arrived today with SPC . Pt reports she sometimes feels not centered and occasionally twirly but denies any room spinning or boat rocking sensation. She has had bilateral BROOKE. She has what she describes as severe arthritis which mostly manifests in low back pain after increased activity. Pt has history of acoustic neuroma ~30 years ago. 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 Prior Treatments and Tests ED 07/17/20 following two falls with head trauma. PT recommended d/c home with FWW 100% of the time. Prior PT following BROOKE's but none directed at balance. 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 Pt rates her own memory at 40% of baseline. She struggles to remember events from long ago . She denies forgetting to use her walker but does admit that she does not like to use it. Treatment Goals Patient/Caregiver Goals Improve standing and walking confidence preferably without AD. Improve strength. Pt reports there have been ongoing conversations about what to do with mother. Pt feels like she lacks direction , is unenthusiastic about moving to [facility] but would consider it if necessary. Sister and brother in law have offered for pt to live with them in [place] which she considers an attractive offer. 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 Current Functional Impairments (Reported) Functional Limitations- ADL's SBA required for showers Functional Limitations- Mobility/Gait Pt begrudgingly using FWW for mobility especially for trips to the bathroom at night. Functional Limitations- Recreation/ Pt's daughter, Reyna, lives Hobbies in the area, and checks on her frequently. Functional Limitations- Other Reduced confidence in balance and gait. Personal Factors Other Personal Factors That May Effect Family dynamics Therapy/Recovery PT-OP-C Subjective Start: 07/31/20 12:47 Freq: Status: Active Protocol: Document 08/07/20 13:45 AW (Rec: 08/07/20 13:48 AW [id number]) OP-PT Subjective Patient Comments Patient Comments Pt is doing well, had both children visit for Mother's Day. PT-OP-D Balance Start: 07/31/20 12:47 Freq: Status: Active Protocol: Document 07/31/20 13:45 AW (Rec: 07/31/20 17:57 AW [email or web address]) OP-PT Balance Assessment Sitting Balance Static Sitting Balance Ability Good Dynamic Sitting Balance Ability Good Sitting Balance Comments Pt sits unsupported on treatment table and is able to reach forward to pick item up off the floor. Standing Balance Static Standing Balance Ability Fair Dynamic Standing Balance Ability Poor Device Used SPC Tinetti Balance Assessment Sitting Balance Sitting Balance Steady, safe Arising from Chair Ability to Arise Able, uses arms to help Attempts to Arise Able, requires >1 attempt Standing Balance Immediate Standing Balance Steady with support Standing Balance Steady, wide stance Nudged Response Staggers, catches self Standing with Eyes Closed Unsteady Turning Step Pattern Turning 360 Degrees Continuous steps Stability Turning 360 Degrees Unsteady, grabs/staggers Sitting Down Sitting Down Uses arms or unsteady Gait and Step Initiation of Gait No hesitancy Right Foot Step Length Does not pass stance ft. Right Foot Step Height Completely clears floor Left Foot Step Length Does not pass stance foot Left Foot Step Height Completely clears floor Step Description Step Symmetry Step length not equal Step Continuity Steps appear continuous Gait Description Path Description Mild/moderate deviation Trunk Description No sway but posturing Walking Stance Heels together Scoring and Interpretation Tinetti Composite Score (points) 15 Interpretation of Scores High risk for falls(< 19) Alexander Fall Scale Copyright Permission PT-OP-G Mobility & Gait Start: 07/31/20 12:47 Freq: Status: Active Protocol: Document 07/31/20 13:45 AW (Rec: 07/31/20 17:57 AW [email or web address]) OP Mobility Evaluation Bed Mobility Supine to and from Sit close SBA Transfers Sit to Stand SBA Bed to Chair Transfers SBA OP Gait Assessment Gait Gait Assistance Required: Standby Assistance Distance (Feet) 100 Assistive Devices Assistive Device Straight Cane Gait Deviations General Gait Pattern Decreased Stride Length, Decreased Feet Clearance, Festinating,Flexed Trunk,Step- to Gait Factors Limiting Gait Function Factors Limiting Gait Function Decreased Strength,Poor Balance Comments Gait Comments Pt ambulated with SPC, increased knee and trunk flexion. With SPC, pt has short shuffling, inconsistent steps. PT-OP-H Neuro Start: 07/31/20 12:47 Freq: Status: Active Protocol: Document 07/31/20 13:45 AW (Rec: 07/31/20 17:57 AW [email or web address]) Deep Tendon Reflex & Clonus Assessment Deep Tendon Reflex Bilateral Achilles Deep Tendon Reflex 2+ Normal Bilateral Patellar Deep Tendon Reflex 2+ Normal Bilateral Bicep Deep Tendon Reflex 2+ Normal Vital Signs Blood Pressure Sitting Blood Pressure (90/60-120/80 mmHg) 132/78 H Blood Pressure Source Manual Cuff,Left Upper Extremity PT-OP-J Posture/Palpation/Skin Start: 07/31/20 12:47 Freq: Status: Active Protocol: Document 07/31/20 13:45 AW (Rec: 07/31/20 17:57 AW [email or web address]) Posture Evaluation Comments Posture Comments Pt with forward head, flexed posture, increased kyphosis, stands with increased flexion bilateral knees. PT-OP-K Range of Motion Start: 07/31/20 12:47 Freq: Status: Active Protocol: Document 07/31/20 13:45 AW (Rec: 07/31/20 17:57 AW [email or web address]) Hip Goniometric Range of Motion Hip ROM Limitations Comments All hip ROM WFL Knee Goniometric Range of Motion Knee ROM Limitations Comments All knee ROM WFL Ankle and Foot Goniometric Range of Motion Ankle and Foot ROM Limitations Comments All ankle ROM WFL Toe Range of Motion Toes ROM Limitations Comments R great toe fused during surgery November 2019 PT-OP-M Strength Start: 07/31/20 12:47 Freq: Status: Active Protocol: Document 07/31/20 13:45 AW (Rec: 07/31/20 17:57 AW [email or web address]) Shoulder Strength Shoulder Manual Muscle Testing bilateral Comments B shoulders grossly 4/5 all planes Hip Strength Hip Manual Muscle Testing bilateral Flexion (L2) 4 Good Extension (S1) 4- Good- Abduction 4- Good- External Rotation 4- Good- Internal Rotation 4- Good- Knee Strength Knee Manual Muscle Testing bilateral Flexion (S2) 4- Good- Extension (L3) 4+ Good+ Ankle/Foot Strength Ankle and Foot Manual Muscle Testing bilateral Comments B ankles grossly 4/5 bilaterally PT-OP-O Vestibular Start: 07/31/20 12:47 Freq: Status: Active Protocol: Document 07/31/20 13:45 AW (Rec: 08/01/20 08:52 AW [email or web address]) Vestibular Assessment Comments Vestibular Comments Pt has mild bilateral horizontal nystagmus at rest and with with gaze each direction. Head thrust test positive for mild lag (worse with rotation to the left). PT-OP-Q Treatments Start: 07/31/20 12:47 Freq: Status: Active Protocol: Document 08/07/20 13:45 AW (Rec: 08/07/20 13:48 AW [id number]) Gait Training Gait Activity level surface Description level surface Device Used 4WW Level of Assistance SBA Surface tile, carpet Distance/Duration 10 min Treatment Focus amplitude Comments focused on step length with pt able to improve to stepping through and each foot passing the other. Neuro Re-Education Treatment Balance Activities romberg stance Details romberg stance Surface level Equipment corner, chair Reps/Duration 15 min Comments NBOS, semi tandem, staggered stance all with EO Vestibular Rehabilitation gaze stabilization Details gaze stabilization Distance From Target arms length Speed 90 bpm Position sitting Reps/Duration 10 min Comments horizontal and vertical head turns at 90 bpm focused on post it note with letters XRT Self-Care/Home Management Treatment Education Patient Education Home Exercise Program Activities Self-Care/Home Management Activities NBOS stance at counter and gaze stabilization given with handouts PT-OP-T Assessment and Plan Start: 07/31/20 12:47 Freq: Status: Active Protocol: Document 08/07/20 13:45 AW (Rec: 08/07/20 16:19 AW [email or web address]) Physical Therapy Assessment Impairments Impairments Balance,Coordination, Functional Activities, Functional Mobility,Gait,Pain, Posture,Sensation,Strength, Transfers,Vestibular Other Concerns Fall Risk High per Tinetti score Age Related Concerns Pt lives independently, has mild cognitive impairment, and may have poor carryover. Barriers to Rehabilitation Chronicity of deficits may affect treatment outcomes Goals Three Impairment balance Short Term Goal (STG) Pt will improve Tinetti composite score to 19 or greater to reduce falls risk to moderate. STG Duration 6 weeks -September 11, 2020 Senior Living Goal (LTG) Pt will improve Tinetti composite score to 26 or greater to reduce falls risk to low. LTG Duration 3 months - October 31, 2020 Two Impairment gait Short Term Goal (STG) Pt will improve step length to each foot fully passing the other at initial contact with LRAD. STG Duration 6 weeks -September 11, 2020 Senior Living Goal (LTG) Pt will improve self-selected gait speed to 0.8 m/s or greater with LRAD for improved safety with in-home and community ambulation. LTG Duration 3 months - October 31, 2020 One Impairment Pt lacks HEP Short Term Goal (STG) Pt will be independent with HEP to support therapy services provided in clinic. STG Duration 4 weeks - August 28, 2020 Assessment Summary Assessment Initiated VOR gaze stability training this date with pt able to maintain focus at 1.5 Hz (90 bpm on metronome). Pt was hesitant at first but tolerated standing balance activities. Gait training focused on amplitude for improved safety with 4WW. Physical Therapy Plan Frequency and Duration Frequency of Treatment 2x/Week Duration of Treatment 3 months Plan of Care Start Date 07/31/20 Plan of Care End Date 10/31/20 Therapeutic Interventions Therapeutic Interventions Balance Training,Coordination Training,Gait Training,Home Exercise Program,Neuromuscular Re-education,Patient/ Caregiver Education,Self-Care/ Home Management,Sensory Integration,Therapeutic Activities,Therapeutic Exercises,Vestibular Rehabilitation Next Visit Focus/Plan Next Note Type Treatment Note Next Visit Plan Assess response to gaze stab exercise and standing balance. Progress as able. Continue gait training, incorporate turns
--- NOTE | 2020-08-28 17:03 | PT.OTN ---
Current Diagnoses Other abnormalities of gait and mobility (08/28/20) Dizziness and giddiness (08/28/20) Physical Therapy Treatment Note PT-OP-A Visit Information Start: 07/31/20 12:47 Freq: Status: Active Protocol: Document 08/28/20 16:00 AW (Rec: 08/28/20 16:59 AW [email or web address]) Out-Patient Physical Therapy Visit Information Visit Information Visit Type Treatment Note Visit Note Pt's daughter, Reyna, attended Visit Start Time 15:15 Visit Stop Time 16:00 Total Visit Minutes 45 Visit Number 3 Evaluation Information Evaluation Date 07/31/20 PT-OP-B Current Condition Start: 07/31/20 12:47 Freq: Status: Active Protocol: Document 07/31/20 13:45 AW (Rec: 07/31/20 13:53 AW [id number]) Current Condition History of Current Condition Onset Date couple of years Current Complaints poor balance, especially in standing History of Current Condition Pt reports ~6 falls in the past one year. She had foot surgery - hammertoe correction - in November 2019 (Mike ) and started using the walker after that. She fell twice within a few days in June and was evaluated her in ED including PT evaluation which recommended full-time use of FWW. Pt arrived today with SPC . Pt reports she sometimes feels not centered and occasionally twirly but denies any room spinning or boat rocking sensation. She has had bilateral BROOKE. She has what she describes as severe arthritis which mostly manifests in low back pain after increased activity. Pt has history of acoustic neuroma ~30 years ago. 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 Prior Treatments and Tests ED 07/17/20 following two falls with head trauma. PT recommended d/c home with FWW 100% of the time. Prior PT following BROOKE's but none directed at balance. 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 Pt rates her own memory at 40% of baseline. She struggles to remember events from long ago . She denies forgetting to use her walker but does admit that she does not like to use it. Treatment Goals Patient/Caregiver Goals Improve standing and walking confidence preferably without AD. Improve strength. Pt reports there have been ongoing conversations about what to do with mother. Pt feels like she lacks direction , is unenthusiastic about moving to [facility] but would consider it if necessary. Sister and brother in law have offered for pt to live with them in [place] which she considers an attractive offer. 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 Current Functional Impairments (Reported) Functional Limitations- ADL's SBA required for showers Functional Limitations- Mobility/Gait Pt begrudgingly using FWW for mobility especially for trips to the bathroom at night. Functional Limitations- Recreation/ Pt's daughter, Reyna, lives Hobbies in the area, and checks on her frequently. Functional Limitations- Other Reduced confidence in balance and gait. Personal Factors Other Personal Factors That May Effect Family dynamics Therapy/Recovery PT-OP-C Subjective Start: 07/31/20 12:47 Freq: Status: Active Protocol: Document 08/28/20 16:00 AW (Rec: 08/28/20 16:59 AW [email or web address]) OP-PT Subjective Patient Comments Patient Comments Pt has been doing HEP including gaze stabilization work. PT-OP-D Balance Start: 07/31/20 12:47 Freq: Status: Active Protocol: Document 07/31/20 13:45 AW (Rec: 07/31/20 17:57 AW [email or web address]) OP-PT Balance Assessment Sitting Balance Static Sitting Balance Ability Good Dynamic Sitting Balance Ability Good Sitting Balance Comments Pt sits unsupported on treatment table and is able to reach forward to pick item up off the floor. Standing Balance Static Standing Balance Ability Fair Dynamic Standing Balance Ability Poor Device Used SPC Tinetti Balance Assessment Sitting Balance Sitting Balance Steady, safe Arising from Chair Ability to Arise Able, uses arms to help Attempts to Arise Able, requires >1 attempt Standing Balance Immediate Standing Balance Steady with support Standing Balance Steady, wide stance Nudged Response Staggers, catches self Standing with Eyes Closed Unsteady Turning Step Pattern Turning 360 Degrees Continuous steps Stability Turning 360 Degrees Unsteady, grabs/staggers Sitting Down Sitting Down Uses arms or unsteady Gait and Step Initiation of Gait No hesitancy Right Foot Step Length Does not pass stance ft. Right Foot Step Height Completely clears floor Left Foot Step Length Does not pass stance foot Left Foot Step Height Completely clears floor Step Description Step Symmetry Step length not equal Step Continuity Steps appear continuous Gait Description Path Description Mild/moderate deviation Trunk Description No sway but posturing Walking Stance Heels together Scoring and Interpretation Tinetti Composite Score (points) 15 Interpretation of Scores High risk for falls(< 19) Alexander Fall Scale Copyright Permission PT-OP-G Mobility & Gait Start: 07/31/20 12:47 Freq: Status: Active Protocol: Document 07/31/20 13:45 AW (Rec: 07/31/20 17:57 AW [email or web address]) OP Mobility Evaluation Bed Mobility Supine to and from Sit close SBA Transfers Sit to Stand SBA Bed to Chair Transfers SBA OP Gait Assessment Gait Gait Assistance Required: Standby Assistance Distance (Feet) 100 Assistive Devices Assistive Device Straight Cane Gait Deviations General Gait Pattern Decreased Stride Length, Decreased Feet Clearance, Festinating,Flexed Trunk,Step- to Gait Factors Limiting Gait Function Factors Limiting Gait Function Decreased Strength,Poor Balance Comments Gait Comments Pt ambulated with SPC, increased knee and trunk flexion. With SPC, pt has short shuffling, inconsistent steps. PT-OP-H Neuro Start: 07/31/20 12:47 Freq: Status: Active Protocol: Document 07/31/20 13:45 AW (Rec: 07/31/20 17:57 AW [email or web address]) Deep Tendon Reflex & Clonus Assessment Deep Tendon Reflex Bilateral Achilles Deep Tendon Reflex 2+ Normal Bilateral Patellar Deep Tendon Reflex 2+ Normal Bilateral Bicep Deep Tendon Reflex 2+ Normal Vital Signs Blood Pressure Sitting Blood Pressure (90/60-120/80 mmHg) 132/78 H Blood Pressure Source Manual Cuff,Left Upper Extremity PT-OP-J Posture/Palpation/Skin Start: 07/31/20 12:47 Freq: Status: Active Protocol: Document 07/31/20 13:45 AW (Rec: 07/31/20 17:57 AW [email or web address]) Posture Evaluation Comments Posture Comments Pt with forward head, flexed posture, increased kyphosis, stands with increased flexion bilateral knees. PT-OP-K Range of Motion Start: 07/31/20 12:47 Freq: Status: Active Protocol: Document 07/31/20 13:45 AW (Rec: 07/31/20 17:57 AW [email or web address]) Hip Goniometric Range of Motion Hip ROM Limitations Comments All hip ROM WFL Knee Goniometric Range of Motion Knee ROM Limitations Comments All knee ROM WFL Ankle and Foot Goniometric Range of Motion Ankle and Foot ROM Limitations Comments All ankle ROM WFL Toe Range of Motion Toes ROM Limitations Comments R great toe fused during surgery November 2019 PT-OP-M Strength Start: 07/31/20 12:47 Freq: Status: Active Protocol: Document 07/31/20 13:45 AW (Rec: 07/31/20 17:57 AW [email or web address]) Shoulder Strength Shoulder Manual Muscle Testing bilateral Comments B shoulders grossly 4/5 all planes Hip Strength Hip Manual Muscle Testing bilateral Flexion (L2) 4 Good Extension (S1) 4- Good- Abduction 4- Good- External Rotation 4- Good- Internal Rotation 4- Good- Knee Strength Knee Manual Muscle Testing bilateral Flexion (S2) 4- Good- Extension (L3) 4+ Good+ Ankle/Foot Strength Ankle and Foot Manual Muscle Testing bilateral Comments B ankles grossly 4/5 bilaterally PT-OP-O Vestibular Start: 07/31/20 12:47 Freq: Status: Active Protocol: Document 07/31/20 13:45 AW (Rec: 08/01/20 08:52 AW [email or web address]) Vestibular Assessment Comments Vestibular Comments Pt has mild bilateral horizontal nystagmus at rest and with with gaze each direction. Head thrust test positive for mild lag (worse with rotation to the left). PT-OP-Q Treatments Start: 07/31/20 12:47 Freq: Status: Active Protocol: Document 08/28/20 16:00 AW (Rec: 08/28/20 16:59 AW [email or web address]) Therapeutic Exercises Other Exercises sit to stand Other Exercise Name sit to stand Equipment Used 20 mat table Reps/Minutes 5 min Comments focus on no UE support, weight acceptance Gait Training Gait Activity level surface Description level surface Device Used 4WW Level of Assistance SBA Surface tile Distance/Duration 10 min Treatment Focus amplitude Comments focused on step length with pt able to improve to stepping through and each foot passing the other. Also practiced turns with focus on improving foot clearance Neuro Re-Education Treatment Balance Activities romberg stance Details romberg stance Surface level Equipment corner, chair Reps/Duration 15 min Comments NBOS, semi tandem, staggered stance, head turns EO ok, close SBA to CGA required for EC. Added WBOS with head turns at home for pt to do with 4WW front and bed behind. Self-Care/Home Management Treatment Education Patient Education Home Exercise Program Activities Self-Care/Home Management Activities WBOS as described above. PT-OP-T Assessment and Plan Start: 07/31/20 12:47 Freq: Status: Active Protocol: Document 08/28/20 16:00 AW (Rec: 08/28/20 17:03 AW [email or web address]) Physical Therapy Assessment Impairments Impairments Balance,Coordination, Functional Activities, Functional Mobility,Gait,Pain, Posture,Sensation,Strength, Transfers,Vestibular Other Concerns Fall Risk High per Tinetti score Age Related Concerns Pt lives independently, has mild cognitive impairment, and may have poor carryover. Barriers to Rehabilitation Chronicity of deficits may affect treatment outcomes Goals Three Impairment balance Short Term Goal (STG) Pt will improve Tinetti composite score to 19 or greater to reduce falls risk to moderate. STG Duration 6 weeks -September 11, 2020 Case Management Assistant Goal (LTG) Pt will improve Tinetti composite score to 26 or greater to reduce falls risk to low. LTG Duration 3 months - October 31, 2020 Two Impairment gait Short Term Goal (STG) Pt will improve step length to each foot fully passing the other at initial contact with LRAD. STG Duration 6 weeks -September 11, 2020 Nursing Home Goal (LTG) Pt will improve self-selected gait speed to 0.8 m/s or greater with LRAD for improved safety with in-home and community ambulation. LTG Duration 3 months - October 31, 2020 One Impairment Pt lacks HEP Short Term Goal (STG) Pt will be independent with HEP to support therapy services provided in clinic. STG Duration 4 weeks - August 28, 2020 Assessment Summary Assessment Sparkle attended today with her daughter, Reyna. Balance training focused on standing with 4WW in front, wall behind. Pt able to manage NBOS both stable and with internal perturbations (arm swing) but any condition with eyes closed required CGA. Physical Therapy Plan Frequency and Duration Frequency of Treatment 2x/Week Duration of Treatment 3 months Plan of Care Start Date 07/31/20 Plan of Care End Date 10/31/20 Therapeutic Interventions Therapeutic Interventions Balance Training,Coordination Training,Gait Training,Home Exercise Program,Neuromuscular Re-education,Patient/ Caregiver Education,Self-Care/ Home Management,Sensory Integration,Therapeutic Activities,Therapeutic Exercises,Vestibular Rehabilitation Next Visit Focus/Plan Next Note Type Treatment Note Next Visit Plan Assess response to gaze stab exercise and standing balance. Progress as able. Continue gait training, incorporate turns
--- NOTE | 2020-09-05 17:05 | PT.OTN ---
Current Diagnoses Other abnormalities of gait and mobility (09/05/20) Dizziness and giddiness (09/05/20) Physical Therapy Treatment Note PT-OP-A Visit Information Start: 07/31/20 12:47 Freq: Status: Active Protocol: Document 09/05/20 16:45 AW (Rec: 09/05/20 17:01 AW [id number]) Out-Patient Physical Therapy Visit Information Visit Information Visit Type Treatment Note Visit Note Pt's daughter, Reyna, attended Visit Start Time 16:00 Visit Stop Time 16:45 Total Visit Minutes 45 Evaluation Information Evaluation Date 07/31/20 PT-OP-B Current Condition Start: 07/31/20 12:47 Freq: Status: Active Protocol: Document 07/31/20 13:45 AW (Rec: 07/31/20 13:53 AW [id number]) Current Condition History of Current Condition Onset Date couple of years Current Complaints poor balance, especially in standing History of Current Condition Pt reports ~6 falls in the past one year. She had foot surgery - hammertoe correction - in November 2019 (Mike ) and started using the walker after that. She fell twice within a few days in June and was evaluated her in ED including PT evaluation which recommended full-time use of FWW. Pt arrived today with SPC . Pt reports she sometimes feels not centered and occasionally twirly but denies any room spinning or boat rocking sensation. She has had bilateral BROOKE. She has what she describes as severe arthritis which mostly manifests in low back pain after increased activity. Pt has history of acoustic neuroma ~30 years ago. 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 Prior Treatments and Tests ED 07/17/20 following two falls with head trauma. PT recommended d/c home with FWW 100% of the time. Prior PT following BROOKE's but none directed at balance. 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 Pt rates her own memory at 40% of baseline. She struggles to remember events from long ago . She denies forgetting to use her walker but does admit that she does not like to use it. Treatment Goals Patient/Caregiver Goals Improve standing and walking confidence preferably without AD. Improve strength. Pt reports there have been ongoing conversations about what to do with mother. Pt feels like she lacks direction , is unenthusiastic about moving to [facility] but would consider it if necessary. Sister and brother in law have offered for pt to live with them in [place] which she considers an attractive offer. 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 Current Functional Impairments (Reported) Functional Limitations- ADL's SBA required for showers Functional Limitations- Mobility/Gait Pt begrudgingly using FWW for mobility especially for trips to the bathroom at night. Functional Limitations- Recreation/ Pt's daughter, Reyna, lives Hobbies in the area, and checks on her frequently. Functional Limitations- Other Reduced confidence in balance and gait. Personal Factors Other Personal Factors That May Effect Family dynamics Therapy/Recovery PT-OP-C Subjective Start: 07/31/20 12:47 Freq: Status: Active Protocol: Document 09/05/20 16:45 AW (Rec: 09/05/20 17:01 AW [id number]) OP-PT Subjective Patient Comments Patient Comments Pt has concerns about doing standing balance exercise at home due to having no assist and no safe place for practice . PT-OP-D Balance Start: 07/31/20 12:47 Freq: Status: Active Protocol: Document 07/31/20 13:45 AW (Rec: 07/31/20 17:57 AW [email or web address]) OP-PT Balance Assessment Sitting Balance Static Sitting Balance Ability Good Dynamic Sitting Balance Ability Good Sitting Balance Comments Pt sits unsupported on treatment table and is able to reach forward to pick item up off the floor. Standing Balance Static Standing Balance Ability Fair Dynamic Standing Balance Ability Poor Device Used SPC Tinetti Balance Assessment Sitting Balance Sitting Balance Steady, safe Arising from Chair Ability to Arise Able, uses arms to help Attempts to Arise Able, requires >1 attempt Standing Balance Immediate Standing Balance Steady with support Standing Balance Steady, wide stance Nudged Response Staggers, catches self Standing with Eyes Closed Unsteady Turning Step Pattern Turning 360 Degrees Continuous steps Stability Turning 360 Degrees Unsteady, grabs/staggers Sitting Down Sitting Down Uses arms or unsteady Gait and Step Initiation of Gait No hesitancy Right Foot Step Length Does not pass stance ft. Right Foot Step Height Completely clears floor Left Foot Step Length Does not pass stance foot Left Foot Step Height Completely clears floor Step Description Step Symmetry Step length not equal Step Continuity Steps appear continuous Gait Description Path Description Mild/moderate deviation Trunk Description No sway but posturing Walking Stance Heels together Scoring and Interpretation Tinetti Composite Score (points) 15 Interpretation of Scores High risk for falls(< 19) Alexander Fall Scale Copyright Permission PT-OP-G Mobility & Gait Start: 07/31/20 12:47 Freq: Status: Active Protocol: Document 07/31/20 13:45 AW (Rec: 07/31/20 17:57 AW [email or web address]) OP Mobility Evaluation Bed Mobility Supine to and from Sit close SBA Transfers Sit to Stand SBA Bed to Chair Transfers SBA OP Gait Assessment Gait Gait Assistance Required: Standby Assistance Distance (Feet) 100 Assistive Devices Assistive Device Straight Cane Gait Deviations General Gait Pattern Decreased Stride Length, Decreased Feet Clearance, Festinating,Flexed Trunk,Step- to Gait Factors Limiting Gait Function Factors Limiting Gait Function Decreased Strength,Poor Balance Comments Gait Comments Pt ambulated with SPC, increased knee and trunk flexion. With SPC, pt has short shuffling, inconsistent steps. PT-OP-H Neuro Start: 07/31/20 12:47 Freq: Status: Active Protocol: Document 07/31/20 13:45 AW (Rec: 07/31/20 17:57 AW [email or web address]) Deep Tendon Reflex & Clonus Assessment Deep Tendon Reflex Bilateral Achilles Deep Tendon Reflex 2+ Normal Bilateral Patellar Deep Tendon Reflex 2+ Normal Bilateral Bicep Deep Tendon Reflex 2+ Normal Vital Signs Blood Pressure Sitting Blood Pressure (90/60-120/80 mmHg) 132/78 H Blood Pressure Source Manual Cuff,Left Upper Extremity PT-OP-J Posture/Palpation/Skin Start: 07/31/20 12:47 Freq: Status: Active Protocol: Document 07/31/20 13:45 AW (Rec: 07/31/20 17:57 AW [email or web address]) Posture Evaluation Comments Posture Comments Pt with forward head, flexed posture, increased kyphosis, stands with increased flexion bilateral knees. PT-OP-K Range of Motion Start: 07/31/20 12:47 Freq: Status: Active Protocol: Document 07/31/20 13:45 AW (Rec: 07/31/20 17:57 AW [email or web address]) Hip Goniometric Range of Motion Hip ROM Limitations Comments All hip ROM WFL Knee Goniometric Range of Motion Knee ROM Limitations Comments All knee ROM WFL Ankle and Foot Goniometric Range of Motion Ankle and Foot ROM Limitations Comments All ankle ROM WFL Toe Range of Motion Toes ROM Limitations Comments R great toe fused during surgery November 2019 PT-OP-M Strength Start: 07/31/20 12:47 Freq: Status: Active Protocol: Document 07/31/20 13:45 AW (Rec: 07/31/20 17:57 AW [email or web address]) Shoulder Strength Shoulder Manual Muscle Testing bilateral Comments B shoulders grossly 4/5 all planes Hip Strength Hip Manual Muscle Testing bilateral Flexion (L2) 4 Good Extension (S1) 4- Good- Abduction 4- Good- External Rotation 4- Good- Internal Rotation 4- Good- Knee Strength Knee Manual Muscle Testing bilateral Flexion (S2) 4- Good- Extension (L3) 4+ Good+ Ankle/Foot Strength Ankle and Foot Manual Muscle Testing bilateral Comments B ankles grossly 4/5 bilaterally PT-OP-O Vestibular Start: 07/31/20 12:47 Freq: Status: Active Protocol: Document 07/31/20 13:45 AW (Rec: 08/01/20 08:52 AW [email or web address]) Vestibular Assessment Comments Vestibular Comments Pt has mild bilateral horizontal nystagmus at rest and with with gaze each direction. Head thrust test positive for mild lag (worse with rotation to the left). PT-OP-Q Treatments Start: 07/31/20 12:47 Freq: Status: Active Protocol: Document 09/05/20 16:45 AW (Rec: 09/05/20 17:01 AW [id number]) Therapeutic Exercises Other Exercises sit to stand Other Exercise Name sit to stand Equipment Used 20 mat table Reps/Minutes 8 min Comments focus on no UE support, weight acceptance Gait Training Gait Activity level surface Description level surface Device Used 4WW Level of Assistance SBA Surface tile and carpet Distance/Duration 8 min Treatment Focus amplitude Comments Including 6MWT with pt walking 595 feet for an average gait speed of 0.5 m/s. Pt's awareness of step length and emilee is improving. Neuro Re-Education Treatment Balance Activities romberg stance Details romberg stance Surface level Equipment mat table behind, 4WW in front Reps/Duration 20 min Comments NBOS, head turns EO ok, close SBA to CGA required for EC. Added arm swing for internal perturbation with EO. Coordination Activities foot tap Details foot tap Equipment 6 step Reps/Duration 10 min Comments Began with pt contacting locked 4WW handles, faded support to bilat fingertips and ultimately to unilat fingertips. Performance with LLE is challenging. PT-OP-T Assessment and Plan Start: 07/31/20 12:47 Freq: Status: Active Protocol: Document 09/05/20 16:45 AW (Rec: 09/05/20 17:05 AW [id number]) Physical Therapy Assessment Impairments Impairments Balance,Coordination, Functional Activities, Functional Mobility,Gait,Pain, Posture,Sensation,Strength, Transfers,Vestibular Other Concerns Fall Risk High per Tinetti score Age Related Concerns Pt lives independently, has mild cognitive impairment, and may have poor carryover. Barriers to Rehabilitation Chronicity of deficits may affect treatment outcomes Goals Three Impairment balance Short Term Goal (STG) Pt will improve Tinetti composite score to 19 or greater to reduce falls risk to moderate. STG Duration 6 weeks -September 11, 2020 Fdc Goal (LTG) Pt will improve Tinetti composite score to 26 or greater to reduce falls risk to low. LTG Duration 3 months - October 31, 2020 Two Impairment gait Short Term Goal (STG) Pt will improve step length to each foot fully passing the other at initial contact with LRAD. STG Duration 6 weeks -September 11, 2020 Dental Ceramist Helper Goal (LTG) Pt will improve self-selected gait speed to 0.8 m/s or greater with LRAD for improved safety with in-home and community ambulation. LTG Duration 3 months - October 31, 2020 One Impairment Pt lacks HEP Short Term Goal (STG) Pt will be independent with HEP to support therapy services provided in clinic. STG Duration 4 weeks - August 28, 2020 Assessment Summary Assessment Daughter, Rodrigo, attended again today and took notes on exercises for home, including WBOS with eyes open, head turns, and arm swings in safe place with support person to spot. Sit to stand is weak and pt would benefit from ther ex to improve B LE strength. Physical Therapy Plan Frequency and Duration Frequency of Treatment 2x/Week Duration of Treatment 3 months Plan of Care Start Date 07/31/20 Plan of Care End Date 10/31/20 Therapeutic Interventions Therapeutic Interventions Balance Training,Coordination Training,Gait Training,Home Exercise Program,Neuromuscular Re-education,Patient/ Caregiver Education,Self-Care/ Home Management,Sensory Integration,Therapeutic Activities,Therapeutic Exercises,Vestibular Rehabilitation Next Visit Focus/Plan Next Note Type Treatment Note Next Visit Plan Continue gait training, incorporate turns. Progress standing balance. Initiate BLE strengthening
--- NOTE | 2020-09-11 12:44 | PT-IP ANOTE ---
Pt cancelled same day due to conflict with dentist appointment which took precedence due to broken tooth emergency.
--- NOTE | 2020-09-19 16:49 | PT.OTN ---
Current Diagnoses Other abnormalities of gait and mobility (09/19/20) Dizziness and giddiness (09/19/20) Physical Therapy Treatment Note PT-OP-A Visit Information Start: 07/31/20 12:47 Freq: Status: Active Protocol: Document 09/19/20 16:45 AW (Rec: 09/19/20 16:49 AW [id number]) Out-Patient Physical Therapy Visit Information Visit Information Visit Start Time 16:03 Visit Stop Time 16:45 Total Visit Minutes 42 Evaluation Information Evaluation Date 07/31/20 PT-OP-B Current Condition Start: 07/31/20 12:47 Freq: Status: Active Protocol: Document 07/31/20 13:45 AW (Rec: 07/31/20 13:53 AW [id number]) Current Condition History of Current Condition Onset Date couple of years Current Complaints poor balance, especially in standing History of Current Condition Pt reports ~6 falls in the past one year. She had foot surgery - hammertoe correction - in November 2019 (Mike ) and started using the walker after that. She fell twice within a few days in June and was evaluated her in ED including PT evaluation which recommended full-time use of FWW. Pt arrived today with SPC . Pt reports she sometimes feels not centered and occasionally twirly but denies any room spinning or boat rocking sensation. She has had bilateral BROOKE. She has what she describes as severe arthritis which mostly manifests in low back pain after increased activity. Pt has history of acoustic neuroma ~30 years ago. 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 Prior Treatments and Tests ED 07/17/20 following two falls with head trauma. PT recommended d/c home with FWW 100% of the time. Prior PT following BROOKE's but none directed at balance. 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 Pt rates her own memory at 40% of baseline. She struggles to remember events from long ago . She denies forgetting to use her walker but does admit that she does not like to use it. Treatment Goals Patient/Caregiver Goals Improve standing and walking confidence preferably without AD. Improve strength. Pt reports there have been ongoing conversations about what to do with mother. Pt feels like she lacks direction , is unenthusiastic about moving to [facility] but would consider it if necessary. Sister and brother in law have offered for pt to live with them in [place] which she considers an attractive offer. 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 Current Functional Impairments (Reported) Functional Limitations- ADL's SBA required for showers Functional Limitations- Mobility/Gait Pt begrudgingly using FWW for mobility especially for trips to the bathroom at night. Functional Limitations- Recreation/ Pt's daughter, Reyna, lives Hobbies in the area, and checks on her frequently. Functional Limitations- Other Reduced confidence in balance and gait. Personal Factors Other Personal Factors That May Effect Family dynamics Therapy/Recovery PT-OP-C Subjective Start: 07/31/20 12:47 Freq: Status: Active Protocol: Document 09/19/20 16:45 AW (Rec: 09/19/20 16:49 AW [id number]) OP-PT Subjective Patient Comments Patient Comments Pt arrives with her son, Blayne, but he declines to attend. PT-OP-D Balance Start: 07/31/20 12:47 Freq: Status: Active Protocol: Document 07/31/20 13:45 AW (Rec: 07/31/20 17:57 AW [email or web address]) OP-PT Balance Assessment Sitting Balance Static Sitting Balance Ability Good Dynamic Sitting Balance Ability Good Sitting Balance Comments Pt sits unsupported on treatment table and is able to reach forward to pick item up off the floor. Standing Balance Static Standing Balance Ability Fair Dynamic Standing Balance Ability Poor Device Used SPC Tinetti Balance Assessment Sitting Balance Sitting Balance Steady, safe Arising from Chair Ability to Arise Able, uses arms to help Attempts to Arise Able, requires >1 attempt Standing Balance Immediate Standing Balance Steady with support Standing Balance Steady, wide stance Nudged Response Staggers, catches self Standing with Eyes Closed Unsteady Turning Step Pattern Turning 360 Degrees Continuous steps Stability Turning 360 Degrees Unsteady, grabs/staggers Sitting Down Sitting Down Uses arms or unsteady Gait and Step Initiation of Gait No hesitancy Right Foot Step Length Does not pass stance ft. Right Foot Step Height Completely clears floor Left Foot Step Length Does not pass stance foot Left Foot Step Height Completely clears floor Step Description Step Symmetry Step length not equal Step Continuity Steps appear continuous Gait Description Path Description Mild/moderate deviation Trunk Description No sway but posturing Walking Stance Heels together Scoring and Interpretation Tinetti Composite Score (points) 15 Interpretation of Scores High risk for falls(< 19) Alexander Fall Scale Copyright Permission PT-OP-G Mobility & Gait Start: 07/31/20 12:47 Freq: Status: Active Protocol: Document 07/31/20 13:45 AW (Rec: 07/31/20 17:57 AW [email or web address]) OP Mobility Evaluation Bed Mobility Supine to and from Sit close SBA Transfers Sit to Stand SBA Bed to Chair Transfers SBA OP Gait Assessment Gait Gait Assistance Required: Standby Assistance Distance (Feet) 100 Assistive Devices Assistive Device Straight Cane Gait Deviations General Gait Pattern Decreased Stride Length, Decreased Feet Clearance, Festinating,Flexed Trunk,Step- to Gait Factors Limiting Gait Function Factors Limiting Gait Function Decreased Strength,Poor Balance Comments Gait Comments Pt ambulated with SPC, increased knee and trunk flexion. With SPC, pt has short shuffling, inconsistent steps. PT-OP-H Neuro Start: 07/31/20 12:47 Freq: Status: Active Protocol: Document 07/31/20 13:45 AW (Rec: 07/31/20 17:57 AW [email or web address]) Deep Tendon Reflex & Clonus Assessment Deep Tendon Reflex Bilateral Achilles Deep Tendon Reflex 2+ Normal Bilateral Patellar Deep Tendon Reflex 2+ Normal Bilateral Bicep Deep Tendon Reflex 2+ Normal Vital Signs Blood Pressure Sitting Blood Pressure (90/60-120/80 mmHg) 132/78 H Blood Pressure Source Manual Cuff,Left Upper Extremity PT-OP-J Posture/Palpation/Skin Start: 07/31/20 12:47 Freq: Status: Active Protocol: Document 07/31/20 13:45 AW (Rec: 07/31/20 17:57 AW [email or web address]) Posture Evaluation Comments Posture Comments Pt with forward head, flexed posture, increased kyphosis, stands with increased flexion bilateral knees. PT-OP-K Range of Motion Start: 07/31/20 12:47 Freq: Status: Active Protocol: Document 07/31/20 13:45 AW (Rec: 07/31/20 17:57 AW [email or web address]) Hip Goniometric Range of Motion Hip ROM Limitations Comments All hip ROM WFL Knee Goniometric Range of Motion Knee ROM Limitations Comments All knee ROM WFL Ankle and Foot Goniometric Range of Motion Ankle and Foot ROM Limitations Comments All ankle ROM WFL Toe Range of Motion Toes ROM Limitations Comments R great toe fused during surgery November 2019 PT-OP-M Strength Start: 07/31/20 12:47 Freq: Status: Active Protocol: Document 07/31/20 13:45 AW (Rec: 07/31/20 17:57 AW [email or web address]) Shoulder Strength Shoulder Manual Muscle Testing bilateral Comments B shoulders grossly 4/5 all planes Hip Strength Hip Manual Muscle Testing bilateral Flexion (L2) 4 Good Extension (S1) 4- Good- Abduction 4- Good- External Rotation 4- Good- Internal Rotation 4- Good- Knee Strength Knee Manual Muscle Testing bilateral Flexion (S2) 4- Good- Extension (L3) 4+ Good+ Ankle/Foot Strength Ankle and Foot Manual Muscle Testing bilateral Comments B ankles grossly 4/5 bilaterally PT-OP-O Vestibular Start: 07/31/20 12:47 Freq: Status: Active Protocol: Document 07/31/20 13:45 AW (Rec: 08/01/20 08:52 AW [email or web address]) Vestibular Assessment Comments Vestibular Comments Pt has mild bilateral horizontal nystagmus at rest and with with gaze each direction. Head thrust test positive for mild lag (worse with rotation to the left). PT-OP-Q Treatments Start: 07/31/20 12:47 Freq: Status: Active Protocol: Document 09/19/20 16:45 AW (Rec: 09/19/20 16:49 AW [id number]) Therapeutic Exercises Supine Exercises bridge Supine Exercise Name bridge Reps/Minutes 10 Comments slight ROM for pain free range SLR Supine Exercise Name SLR Side bilateral Reps/Minutes 10 x 2 Comments alternating; HEP hip abduction Supine Exercise Name hip abduction Side bilateral Resistance level 1 Equipment Used TB Reps/Minutes 10 x 2 Comments HEP hip adduction Supine Exercise Name hip adduction Side bilateral Equipment Used green ball Reps/Minutes 10 x 2 Comments HEP glute set Supine Exercise Name glute set Reps/Minutes 10 x 2 Comments HEP Other Exercises sit to stand Other Exercise Name sit to stand Equipment Used 20 mat table Reps/Minutes 5 min Comments focus on no UE support, weight acceptance Self-Care/Home Management Treatment Education Patient Education Home Exercise Program Activities Self-Care/Home Management Activities Glute sets, hip abd/adduction, SLR - scanned to EMR PT-OP-T Assessment and Plan Start: 07/31/20 12:47 Freq: Status: Active Protocol: Document 09/19/20 16:45 AW (Rec: 09/19/20 16:49 AW [id number]) Physical Therapy Assessment Impairments Impairments Balance,Coordination, Functional Activities, Functional Mobility,Gait,Pain, Posture,Sensation,Strength, Transfers,Vestibular Other Concerns Fall Risk High per Tinetti score Age Related Concerns Pt lives independently, has mild cognitive impairment, and may have poor carryover. Barriers to Rehabilitation Chronicity of deficits may affect treatment outcomes Goals Three Impairment balance Short Term Goal (STG) Pt will improve Tinetti composite score to 19 or greater to reduce falls risk to moderate. STG Duration 6 weeks -September 11, 2020 Big Data Admin Goal (LTG) Pt will improve Tinetti composite score to 26 or greater to reduce falls risk to low. LTG Duration 3 months - October 31, 2020 Two Impairment gait Short Term Goal (STG) Pt will improve step length to each foot fully passing the other at initial contact with LRAD. STG Duration 6 weeks -September 11, 2020 Big Data Admin Goal (LTG) Pt will improve self-selected gait speed to 0.8 m/s or greater with LRAD for improved safety with in-home and community ambulation. LTG Duration 3 months - October 31, 2020 One Impairment Pt lacks HEP Short Term Goal (STG) Pt will be independent with HEP to support therapy services provided in clinic. STG Duration 4 weeks - August 28, 2020 Assessment Summary Assessment Focused on ther ex for BLE strength this date. Pt responds well to all cues, needs some assist with attention/concentration. Pt educated to expect some soreness as she initiates strength program and to resist the urge to over-rest and to stay as active as tolerable . Physical Therapy Plan Frequency and Duration Frequency of Treatment 2x/Week Duration of Treatment 3 months Plan of Care Start Date 07/31/20 Plan of Care End Date 10/31/20 Therapeutic Interventions Therapeutic Interventions Balance Training,Coordination Training,Gait Training,Home Exercise Program,Neuromuscular Re-education,Patient/ Caregiver Education,Self-Care/ Home Management,Sensory Integration,Therapeutic Activities,Therapeutic Exercises,Vestibular Rehabilitation Next Visit Focus/Plan Next Note Type Treatment Note Next Visit Plan Assess response to HEP. Continue ther ex, gait training, incorporate turns. Progress standing balance.
--- NOTE | 2020-09-26 14:15 | PT.OPDS ---
Current Diagnoses Other abnormalities of gait and mobility (09/19/20) Dizziness and giddiness (09/19/20) Visit Care Team Role Provider Type Marycruz Alvarez PA-C Attending Provider Non-Staff Primary Care Provider Referring Provider Specialty: Internal Medicine Address: [address] [place] [address], [id number] Email: [email or web address] Visit Number Visit Number 3 Discharge Summary PT-OP-B Current Condition Start: 07/31/20 12:47 Freq: Status: Active Protocol: Document 07/31/20 13:45 AW (Rec: 07/31/20 13:53 AW [id number]) Current Condition History of Current Condition Onset Date couple of years Current Complaints poor balance, especially in standing History of Current Condition Pt reports ~6 falls in the past one year. She had foot surgery - hammertoe correction - in November 2019 (Mike ) and started using the walker after that. She fell twice within a few days in June and was evaluated her in ED including PT evaluation which recommended full-time use of FWW. Pt arrived today with SPC . Pt reports she sometimes feels not centered and occasionally twirly but denies any room spinning or boat rocking sensation. She has had bilateral BROOKE. She has what she describes as severe arthritis which mostly manifests in low back pain after increased activity. Pt has history of acoustic neuroma ~30 years ago. 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 Prior Treatments and Tests ED 07/17/20 following two falls with head trauma. PT recommended d/c home with FWW 100% of the time. Prior PT following BROOKE's but none directed at balance. 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 Pt rates her own memory at 40% of baseline. She struggles to remember events from long ago . She denies forgetting to use her walker but does admit that she does not like to use it. Treatment Goals Patient/Caregiver Goals Improve standing and walking confidence preferably without AD. Improve strength. Pt reports there have been ongoing conversations about what to do with mother. Pt feels like she lacks direction , is unenthusiastic about moving to [facility] but would consider it if necessary. Sister and brother in law have offered for pt to live with them in [place] which she considers an attractive offer. 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 Current Functional Impairments (Reported) Functional Limitations- ADL's SBA required for showers Functional Limitations- Mobility/Gait Pt begrudgingly using FWW for mobility especially for trips to the bathroom at night. Functional Limitations- Recreation/ Pt's daughter, Reyna, lives Hobbies in the area, and checks on her frequently. Functional Limitations- Other Reduced confidence in balance and gait. Personal Factors Other Personal Factors That May Effect Family dynamics Therapy/Recovery PT-OP-C Subjective Start: 07/31/20 12:47 Freq: Status: Active Protocol: Document 09/19/20 16:45 AW (Rec: 09/19/20 16:49 AW [id number]) OP-PT Subjective Patient Comments Patient Comments Pt arrives with her son, Blayne, but he declines to attend. PT-OP-D Balance Start: 07/31/20 12:47 Freq: Status: Active Protocol: Document 07/31/20 13:45 AW (Rec: 07/31/20 17:57 AW [email or web address]) OP-PT Balance Assessment Sitting Balance Static Sitting Balance Ability Good Dynamic Sitting Balance Ability Good Sitting Balance Comments Pt sits unsupported on treatment table and is able to reach forward to pick item up off the floor. Standing Balance Static Standing Balance Ability Fair Dynamic Standing Balance Ability Poor Device Used SPC Tinetti Balance Assessment Sitting Balance Sitting Balance Steady, safe Arising from Chair Ability to Arise Able, uses arms to help Attempts to Arise Able, requires >1 attempt Standing Balance Immediate Standing Balance Steady with support Standing Balance Steady, wide stance Nudged Response Staggers, catches self Standing with Eyes Closed Unsteady Turning Step Pattern Turning 360 Degrees Continuous steps Stability Turning 360 Degrees Unsteady, grabs/staggers Sitting Down Sitting Down Uses arms or unsteady Gait and Step Initiation of Gait No hesitancy Right Foot Step Length Does not pass stance ft. Right Foot Step Height Completely clears floor Left Foot Step Length Does not pass stance foot Left Foot Step Height Completely clears floor Step Description Step Symmetry Step length not equal Step Continuity Steps appear continuous Gait Description Path Description Mild/moderate deviation Trunk Description No sway but posturing Walking Stance Heels together Scoring and Interpretation Tinetti Composite Score (points) 15 Interpretation of Scores High risk for falls(< 19) Alexander Fall Scale Copyright Permission PT-OP-G Mobility & Gait Start: 07/31/20 12:47 Freq: Status: Active Protocol: Document 07/31/20 13:45 AW (Rec: 07/31/20 17:57 AW [email or web address]) OP Mobility Evaluation Bed Mobility Supine to and from Sit close SBA Transfers Sit to Stand SBA Bed to Chair Transfers SBA OP Gait Assessment Gait Gait Assistance Required: Standby Assistance Distance (Feet) 100 Assistive Devices Assistive Device Straight Cane Gait Deviations General Gait Pattern Decreased Stride Length, Decreased Feet Clearance, Festinating,Flexed Trunk,Step- to Gait Factors Limiting Gait Function Factors Limiting Gait Function Decreased Strength,Poor Balance Comments Gait Comments Pt ambulated with SPC, increased knee and trunk flexion. With SPC, pt has short shuffling, inconsistent steps. PT-OP-H Neuro Start: 07/31/20 12:47 Freq: Status: Active Protocol: Document 07/31/20 13:45 AW (Rec: 07/31/20 17:57 AW [email or web address]) Deep Tendon Reflex & Clonus Assessment Deep Tendon Reflex Bilateral Achilles Deep Tendon Reflex 2+ Normal Bilateral Patellar Deep Tendon Reflex 2+ Normal Bilateral Bicep Deep Tendon Reflex 2+ Normal Vital Signs Blood Pressure Sitting Blood Pressure (90/60-120/80 mmHg) 132/78 H Blood Pressure Source Manual Cuff,Left Upper Extremity PT-OP-J Posture/Palpation/Skin Start: 07/31/20 12:47 Freq: Status: Active Protocol: Document 07/31/20 13:45 AW (Rec: 07/31/20 17:57 AW [email or web address]) Posture Evaluation Comments Posture Comments Pt with forward head, flexed posture, increased kyphosis, stands with increased flexion bilateral knees. PT-OP-K Range of Motion Start: 07/31/20 12:47 Freq: Status: Active Protocol: Document 07/31/20 13:45 AW (Rec: 07/31/20 17:57 AW [email or web address]) Hip Goniometric Range of Motion Hip ROM Limitations Comments All hip ROM WFL Knee Goniometric Range of Motion Knee ROM Limitations Comments All knee ROM WFL Ankle and Foot Goniometric Range of Motion Ankle and Foot ROM Limitations Comments All ankle ROM WFL Toe Range of Motion Toes ROM Limitations Comments R great toe fused during surgery November 2019 PT-OP-M Strength Start: 07/31/20 12:47 Freq: Status: Active Protocol: Document 07/31/20 13:45 AW (Rec: 07/31/20 17:57 AW [email or web address]) Shoulder Strength Shoulder Manual Muscle Testing bilateral Comments B shoulders grossly 4/5 all planes Hip Strength Hip Manual Muscle Testing bilateral Flexion (L2) 4 Good Extension (S1) 4- Good- Abduction 4- Good- External Rotation 4- Good- Internal Rotation 4- Good- Knee Strength Knee Manual Muscle Testing bilateral Flexion (S2) 4- Good- Extension (L3) 4+ Good+ Ankle/Foot Strength Ankle and Foot Manual Muscle Testing bilateral Comments B ankles grossly 4/5 bilaterally PT-OP-O Vestibular Start: 07/31/20 12:47 Freq: Status: Active Protocol: Document 07/31/20 13:45 AW (Rec: 08/01/20 08:52 AW [email or web address]) Vestibular Assessment Comments Vestibular Comments Pt has mild bilateral horizontal nystagmus at rest and with with gaze each direction. Head thrust test positive for mild lag (worse with rotation to the left). PT-OP-T Assessment and Plan Start: 07/31/20 12:47 Freq: Status: Active Protocol: Document 09/26/20 14:14 AW (Rec: 09/26/20 14:15 AW [email or web address]) Physical Therapy Assessment Impairments Impairments Balance,Coordination, Functional Activities, Functional Mobility,Gait,Pain, Posture,Sensation,Strength, Transfers,Vestibular Other Concerns Fall Risk High per Tinetti score Age Related Concerns Pt lives independently, has mild cognitive impairment, and may have poor carryover. Barriers to Rehabilitation Chronicity of deficits may affect treatment outcomes Goals Three Impairment balance Short Term Goal (STG) Pt will improve Tinetti composite score to 19 or greater to reduce falls risk to moderate. STG Duration 6 weeks -September 11, 2020 Group Home Goal (LTG) Pt will improve Tinetti composite score to 26 or greater to reduce falls risk to low. LTG Duration 3 months - October 31, 2020 Two Impairment gait Short Term Goal (STG) Pt will improve step length to each foot fully passing the other at initial contact with LRAD. STG Duration 6 weeks -September 11, 2020 Rolling Up Machine Operator Goal (LTG) Pt will improve self-selected gait speed to 0.8 m/s or greater with LRAD for improved safety with in-home and community ambulation. LTG Duration 3 months - October 31, 2020 One Impairment Pt lacks HEP Short Term Goal (STG) Pt will be independent with HEP to support therapy services provided in clinic. STG Duration 4 weeks - August 28, 2020 Physical Therapy Plan Discharge Physical Therapy Discharge Reasons Patient Request Discharge Comments Pt's daughter called to cancel remaining appointments. Pt is not interested in continuing. Discharge PT.
== END 2020-09-27 11:27 | disposition home or self-care (01) ==
LOC: PHYS 16:00
PROVIDERS: PCP Physician Assistant; Referring Provider Physician Assistant; Visit Provider Physician Assistant
DX: R26.89 Other abnormalities of gait and mobility (principal); R42 Dizziness and giddiness
CPT/HCPCS: 97110; 97112; 97116; 97162

== ENCOUNTER 2021-01-08 09:27 | Emergency (ER) | payer MEDICARE, SELFPAY ==
[2021-01-08] VITALS (20 sets, daily range): BP systolic 146–181; BP diastolic 67–103; PULSE 77–97; RESP 19–32; TEMP 36.6; O2SAT 93–100
--- NOTE | 2021-01-08 09:27 | DI.CT.S_ITS ---
PROCEDURE: CT HEAD/BRAIN WO CON INDICATIONS: fall on thinners possible stroke TECHNIQUE: Noncontrast 4.5 mm thick angled axial sections acquired from the foramen magnum to the vertex, with coronal and sagittal reformats. For radiation dose reduction, the following was used: automated exposure control, adjustment of mA and/or kV according to patient size. COMPARISON: [facility], CT, CT HEAD/BRAIN WO CON, 07/17/2020, 10:39. FINDINGS: Image quality: Excellent. CSF spaces: Effacement of the right lateral and 3rd ventricles, causing developing transtentorial herniation. A mixed attenuation right subdural hematoma is seen, measuring 2.6 cm in width. Brain: Mass effect upon the right cerebral hemisphere with right to left midline shift measuring approximately 9.8 mm. Periventricular and subcortical white matter hypoattenuation, compatible with the sequela of microvascular ischemia. Redemonstrated left cerebellum volume loss. Skull and face: Calvarium and visualized facial bones appear intact, without suspicious lesions. Left occipital craniotomy change is again noted. Sinuses: Visualized sinuses and mastoids are clear. IMPRESSION: Acute right subdural hematoma as detailed above. Critical findings were communicated to the ordering physician at the time of dictation. Dictated by: Robinson Peterson M.D. on 01/08/2021 at 9:31 Approved by: Robinson Peterson M.D. on 01/08/2021 at 9:43
[2021-01-08 09:41] LABS: Add Manual Diff / Slide Review NO; Basophils Absolute Auto 0 /uL (0-100); Basophils Percent Auto 0.3 % (0-2); Eosinophils Absolute Auto 0 /uL (0-450); Eosinophils Percent Auto 0.1 % (2-4); Hematocrit 34.3 % (36-46); Hemoglobin 11.6 g/dL (12.0-16.0); Lymphocytes Absolute Auto 1000 /uL (1100-4500); Lymphocytes Percent Auto 6.1 % (25-40); Mean Corpuscular HGB Conc 33.7 % (30-36); Mean Corpuscular Hemoglobin 30.7 PG (26-34); Mean Corpuscular Volume 91.1 fL (80-100); Monocytes Absolute Auto 1000 /uL (0-900); Monocytes Percent Auto 6.2 % (3-14); Neutrophils Absolute Auto 13800 /uL (1500-7000); Neutrophils Percent Auto 87.3 % (50-75); Platelet Count 269 X10^3/uL (150-400); Red Blood Cell Count 3.76 X10^6/uL (4.0-5.2); Red Cell Distribution Width 13.7 % (11.6-14.8); White Blood Cell Count 15.8 X10^3/uL (4.5-11.0)
--- NOTE | 2021-01-08 09:45 | DI.RAD.S_ITS ---
PROCEDURE: XR FEMUR RT MIN 2V INDICATIONS: Fall with distal femur bruising and pain TECHNIQUE: 4 views of the femur were acquired. COMPARISON: [facility], CR, XR PELVIS 1-2V, 01/08/2021, 9:50. FINDINGS: Bones: Postsurgical changes are seen from a right total hip arthroplasty. Hardware alignment appears stable. No acute osseous fracture or dislocation is seen. Soft tissues: No suspicious soft tissue calcifications or masses. No knee joint effusion. IMPRESSION: 1. Stable right total hip arthroplasty. 2. No acute osseous abnormality. If clinical suspicion and/or symptoms persist, additional imaging with repeat plain films, or advanced imaging (e.g. CT, MRI) may be helpful for further assessment. Dictated by: Jose Armando Boykin M.D. on 01/08/2021 at 10:36 Approved by: Jose Armando Boykin M.D. on 01/08/2021 at 10:41
--- NOTE | 2021-01-08 09:45 | ED_ITS ---
HPI - Neuro Symptoms/Deficit General Chief Complaint: Neuro Symptoms/Deficit Stated Complaint: Stroke Time Seen by Provider: 01/08/21 09:27 Source: patient and EMS Mode of arrival: EMS Limitations: altered mental status History of Present Illness HPI Narrative: Patient is an 81-year-old female. History of atrial fi brillation. Is on anticoagulation. Is brought in by EMS this morning after she was found by her 24 hour cook chili lying on the floor. Her last known normal was greater than 12 hours ago. Civil Litigation Attorney went into check on her this morning because she was not coming out of her room at her normal time. Per report patient does have ?a little ?dementia however is fairly independent with her activities of daily living. Civil Litigation Attorney found the individual on the floor. EMS stated that it looks like she tried to get into a chair in her room and got her left foot caught in the chair and then most likely fell onto her back. Her left foot was caught up in the chair. There is bruising over the left foot. She reported that she was having left-sided facial droop. Patient unable to provide much of the history to EMS. Upon my evaluation patient states that she generally does not feel very well. Was having pain in her right leg. She did think that she fell this morning. On Anticoagulants: Yes Related Data Home Medications Medication Instructions Recorded Confirmed apixaban 5 mg tablet (Eliquis) 5 mg PO BID #0 05/21/16 03/07/20 trazodone 50 mg tablet 0.5 - 2 tab PO HSP PRN #0 05/21/16 03/07/20 amlodipine 2.5 mg tablet 2.5 mg PO DAILY 12/08/19 03/07/20 atorvastatin 10 mg tablet 10 mg PO DAILY 12/08/19 03/07/20 carvedilol 25 mg tablet 25 mg PO SEEINSTR 12/08/19 03/07/20 hydrocodone 10 mg-acetaminophen 1 tab PO Q4-6H PRN 12/08/19 03/07/20 325 mg tablet levothyroxine 88 mcg tablet 50 mcg PO DAILY 12/08/19 03/07/20 (Synthroid) spironolactone 25 mg tablet 12.5 mg PO DAILY 12/08/19 03/07/20 ascorbic acid (vitamin C) 1,000 mg 1,000 mg PO DAILY 03/07/20 03/07/20 tablet cholecalciferol (vitamin D3) 50 2,000 unit PO DAILY 03/07/20 03/07/20 mcg (2,000 unit) capsule (Vitamin D3) Previous Rx's Medication Instructions Recorded hydrocodone 10 mg-acetaminophen 1 tab PO Q6H PRN #42 tab 12/09/19 325 mg tablet ([place]) Allergies Allergy/AdvReac Type Severity Reaction Status Date / Time hydroxyzine Allergy Severe EXCESSIVE Verified 07/17/20 10:12 DROWSINESS/SLEEPINESS AND CONFUSION codeine AdvReac Severe NAUSEA/VOMI Verified 07/17/20 10:12 TING acetaminophen [From Percocet] AdvReac Vomiting Verified 07/17/20 10:12 adhesive tape AdvReac Rash Verified 07/17/20 10:12 oxycodone [From Percocet] AdvReac Vomiting Verified 07/17/20 10:12 Review of Systems Constitutional Constitutional: Denies headache(s) Eyes Comments: Denies vision changes ENT Ears, Nose, Mouth, and Throat: Denies headache(s) Cardiovascular Cardiovascular: Denies chest pain and Denies dyspnea Respiratory Respiratory: Denies dyspnea Gastrointestinal Gastrointestinal: Denies abdominal pain Genitourinary Comments: Patient did urinate on herself Musculoskeletal Musculoskeletal: Denies back pain Integumentary/Breasts Comments: Bruising to the top of the left foot per EMS Neurologic Neurologic: Reports as per HPI and Denies headache(s) Psychiatric Psychiatric: Reports system reviewed and no additional complaints, except as documented Hematologic/Lymphatic On Anticoagulants: Yes Allergic/Immunologic Allergic/Immunologic: Reports system reviewed and no additional complaints, except as documented Patient History Medical History (Updated 01/08/21 @ 10:58 by Blayne Tom DO) Acoustic neuroma Afib Arthritis Ataxia Cardiomegaly Elevated blood sugar History of anticoagulant use HLD (hyperlipidemia) HTN (hypertension) Hypercalcemia Hypothyroid Mitral regurgitation Osteopenia Pulmonary HTN Tricuspid regurgitation Surgical History History of cataract extraction History of hip replacement (2005) History of hysterectomy (1992) Social History household members: none Smoking Status: Never smoker alcohol intake: current Smoking Status: Never smoker alcohol intake frequency: 0-2 drinks per day Substance Use Type: does not use Exam Initial Vital Signs Initial Vital Signs: Vital Signs Temperature 97.8 F 01/08/21 09:36 Pulse Rate 89 01/08/21 09:36 Respiratory Rate 19 01/08/21 09:36 Blood Pressure 173/91 H 01/08/21 09:36 Pulse Oximetry 96 01/08/21 09:36 Const General: well developed and well groomed Limitations: altered mental status HENMT Head: normal to inspection and normocephalic Nose: external nose normal Face and sinus: normal facial exam Eyes General: appearance normal, both eyes and all related structures Pupils: PERRL Other: Patient does seem to have issues with leftward gaze Neck Neck: normal visual inspection Chest Chest: No crepitus and No tenderness Other: Bruising right anterior chest Resp Effort & Inspection: normal respiratory effort Auscultation: clear to auscultation bilaterally Cardio Rate: regular rate Rhythm: abnormal rhythm Pulses: radial pulses present bilaterally GI Inspection: normal to inspection Palpation: soft Back/Spine/Pelvis Back: normal to inspection Skin Other: Large bruise on the right distal femur, bruising on the right anterior chest in small skin abrasions on the dorsum left foot Neuro General: patient alert and patient awake Other: Patient knows that she is in the hospital. Seems to know that she fell this morning. Does not know the year. Does know her date. Does follow commands. Does have difficulty with leftward gaze. Has a droop of the left side of her face. Does not move her left arm. Does not squeeze the left hand. She seems to have full range of motion with her right arm. Follows commands with her right arm. Patient has not spontaneously move her left leg. She resists quite a bit with movement of the left leg. Does not follow commands the left leg. Patient does wiggle her toes and can lift her right leg up off the bed. Extrem General: capillary refill normal Psych Appearance: well kempt Scores GCS [place] coma scale eye opening: Spontaneous [place] coma scale verbal response: Confused [place] coma scale motor response: Obey commands [place] coma scale total score: 14 Nexus Score for C-Spine Focal Neurologic deficit present: Yes Midline spinal tenderness present: No Altered level of conciousness present: Yes Intoxication present: No Distracting Injury Present: No Nexus Criteria for C-spine: 2 Course Orders Ordered: ED Orders 01/08/21 09:10 Complete Blood Count AUTO DIFF Stat Comprehensive Metabolic Panel Stat Ethanol (ETOH) Stat Lipase Stat Partial Thromboplastin Time Stat Prothrombin Time INR Stat Thyroid Stimulating Hormone Stat Troponin & CK Cardiac Panel Stat 01/08/21 09:27 CT head/brain wo con Stat 01/08/21 09:29 EKG-12 Lead Stat 01/08/21 09:42 COVID19 -Nasal swab/Pre-Proc Stat 01/08/21 09:45 XR femur RT min 2V Stat XR pelvis 1-2V Stat 01/08/21 09:46 XR chest 1V Stat 01/08/21 09:47 CT cervical spine wo con Stat XR foot LT min 3V Stat 01/08/21 12:00 Urinalysis and Microscopic Stat Nicardipine HCl 25 mg/ Sodium (Chloride) 250 mls @ 50 mls/hr IV TITRATE CAMMIE; Protocol Last Titration: 01/08/21 12:07 Dose: 0 mg/hr, 0 mls/hr Documented by: Admin: 01/08/21 11:56 Dose: 5 mg/hr, 50 mls/hr Documented by: RISHI Mannitol 64 gm/ Miscellaneous 256 mls @ 256 mls/hr IV NOW ONE Stop: 01/08/21 13:00 Discontinued Medications Fentanyl (Fentanyl 100 Mcg/2 Ml Inj) 25 mcg IV NOW ONE Stop: 01/08/21 10:14 Last Admin: 01/08/21 10: Dose: 25 mcg Documented by: RISHI Prothrombin Complex Concent ( Human) 2,000 unit/Miscellaneous 80 mls @ 460.8 ml s/hr IV NOW ONE; Protocol Stop: 01/08/21 09:59 Last Infusion: 01/08/21 10:45 Dose: 0 unit/kg/min, 0 mls/hr Documented by: Admin: 01/08/21 10:29 Dose: 3 unit/kg/min, 460.8 mls/hr Documented by: RISHI Vital Signs Vital signs: Vital Signs - 8 hr 01/08/21 09:36 01/08/21 09:38 01/08/21 09:39 Temperature 97.8 F Pulse Rate 89 88 85 Respiratory Rate 19 29 H 29 H Blood Pressure 173/91 H 173/91 H Pulse Oximetry 96 96 01/08/21 10:08 01/08/21 10:10 01/08/21 10:30 Temperature Pulse Rate 83 91 H 82 Respiratory Rate 32 H 32 H 26 H Blood Pressure 179/94 H 171/75 H Pulse Oximetry 100 98 98 01/08/21 10:40 01/08/21 10:50 01/08/21 11:00 Temperature Pulse Rate 86 78 77 Respiratory Rate 27 H 25 H 24 Blood Pressure 163/78 H 152/67 H 152/75 H Pulse Oximetry 95 96 95 01/08/21 11:10 01/08/21 11:20 01/08/21 11:25 Temperature Pulse Rate 85 86 97 H Respiratory Rate 25 H 28 H 32 H Blood Pressure 168/81 H 181/94 H 180/103 H Pulse Oximetry 95 96 96 01/08/21 11:30 01/08/21 11:40 01/08/21 11:50 Temperature Pulse Rate 85 86 91 H Respiratory Rate 29 H 27 H 29 H Blood Pressure 176/79 H 162/77 H 174/88 H Pulse Oximetry 95 96 96 01/08/21 11:59 01/08/21 12:00 Temperature Pulse Rate 81 86 Respiratory Rate 28 H 27 H Blood Pressure 179/84 H Pulse Oximetry 95 95 MDM - Neuro Symptoms/Deficit Lab Data Attestation: I reviewed the patient's lab results. Result diagrams: 01/08/21 09:10 01/08/21 09:10 Labs: Lab Results 01/08/21 01/08/21 01/08/21 Range/Units 09:10 09:10 09:10 WBC 15.8 H (4.5-11.0) X10^3/uL RBC 3.76 L (4.0-5.2) X10^6/uL Hgb 11.6 L (12.0-16.0) g/dL Hct 34.3 L (36-46) % MCV 91.1 (80-100) fL MCH 30.7 (26-34) PG MCHC 33.7 (30-36) % RDW 13.7 (11.6-14.8) % Plt Count 269 (150-400) X10^3/uL Neut % (Auto) 87.3 H (50-75) % Lymph % (Auto) 6.1 L (25-40) % [place] % (Auto) 6.2 (3-14) % Eos % (Auto) 0.1 L (2-4) % Baso % (Auto) 0.3 (0-2) % Neut # (Auto) 85002 H (1966-3591) /uL Lymph # (Auto) 1000 L (7123-4235) /uL [place] # (Auto) 1000 H (0-900) /uL Eos # (Auto) 0 (0-450) /uL Baso # (Auto) 0 (0-100) /uL PT 14.6 H (10.1-12.7) SECONDS INR 1.3 (0.9-1.3) APTT 27 D (26.4-36.2) SECONDS Sodium 134 L (137-145) mmol/L Potassium 3.8 (3.4-5.1) mmol/L Chloride 99 (98-107) mmol/L Carbon Dioxide 28 (22-32) mmol/L BUN 23 H (7-17) mg/dL Creatinine 0.59 (0.52-1.04) mg/dL Estimated GFR > 60.0 (>60) mL/min BUN/Creatinine Ratio 39.0 H (6-22) Glucose 145 H (80-110) mg/dL Calcium 9.9 (8.4-10.2) mg/dL Total Bilirubin 1.7 H (0.2-1.3) mg/dL AST 43 H (14-36) IU/L ALT 33 (<35) IU/L Alkaline Phosphatase 109 (38-126) U/L Total Creatine Kinase (30-135) U/L CK-MB (CK-2) CK-MB (CK-2) Rel Index Troponin I (0.01-0.034) ng/mL Total Protein 7.7 (6.3-8.2) g/dL Albumin 4.5 (3.5-5.0) g/dL Globulin 3.2 (1.7-4.1) g/dL Albumin/Globulin Ratio 1.4 (1.0-2.8) Lipase (23-300) U/L TSH (0.47-4.68) uIU/mL Ethyl Alcohol < 10 ( - 10) mg/dL SARS-CoV-2 (PCR) (Negative) 01/08/21 01/08/21 01/08/21 Range/Units 09:10 09:10 09:42 WBC (4.5-11.0) X10^3/uL RBC (4.0-5.2) X10^6/uL Hgb (12.0-16.0) g/dL Hct (36-46) % MCV (80-100) fL MCH (26-34) PG MCHC (30-36) % RDW (11.6-14.8) % Plt Count (150-400) X10^3/uL Neut % (Auto) (50-75) % Lymph % (Auto) (25-40) % [place] % (Auto) (3-14) % Eos % (Auto) (2-4) % Baso % (Auto) (0-2) % Neut # (Auto) (3538-7314) /uL Lymph # (Auto) (6611-1912) /uL [place] # (Auto) (0-900) /uL Eos # (Auto) (0-450) /uL Baso # (Auto) (0-100) /uL PT (10.1-12.7) SECONDS INR (0.9-1.3) APTT (26.4-36.2) SECONDS Sodium (137-145) mmol/L Potassium (3.4-5.1) mmol/L Chloride (98-107) mmol/L Carbon Dioxide (22-32) mmol/L BUN (7-17) mg/dL Creatinine (0.52-1.04) mg/dL Estimated GFR (>60) mL/min BUN/Creatinine Ratio (6-22) Glucose (80-110) mg/dL Calcium (8.4-10.2) mg/dL Total Bilirubin (0.2-1.3) mg/dL AST (14-36) IU/L ALT (<35) IU/L Alkaline Phosphatase (38-126) U/L Total Creatine Kinase 65 (30-135) U/L CK-MB (CK-2) TNP CK-MB (CK-2) Rel Index TNP Troponin I 0.102 H (0.01-0.034) ng/mL Total Protein (6.3-8.2) g/dL Albumin (3.5-5.0) g/dL Globulin (1.7-4.1) g/dL Albumin/Globulin Ratio (1.0-2.8) Lipase 116 (23-300) U/L TSH 5.34 H (0.47-4.68) uIU/mL Ethyl Alcohol ( - 10) mg/dL SARS-CoV-2 (PCR) Negative (Negative) Point of Care Testing Glucose POC [address] scan - head: Radiologist's Impression: [address] [address] [address] Scan Report Signed Patient: Sparkle Bales MR#: [id number] : 1940 Acct:[id number] Age/Sex: 81 / F Date of Service: 01/08/21 Loc: ED Accession Number: [id number] ?? Procedure: CT head/brain wo con Ordering Provider: Blayne Tom D.O. PROCEDURE:? CT HEAD/BRAIN WO CON ? INDICATIONS:? fall on thinners possible stroke ? TECHNIQUE:? Noncontrast 4.5 mm thick angled axial sections acquired from the foramen magnum to the vertex, with coronal and sagittal reformats.? For radiation dose reduction, the following was used:? automated exposure control, adjustment of mA and/or kV according to patient size.? ? COMPARISON:? [facility], CT, CT HEAD/BRAIN WO CON, 07/17/2020, 10:39. ? FINDINGS:? Image quality:? Excellent.? ? CSF spaces:? Effacement of the right lateral and 3rd ventricles, causing developing transtentorial herniation.? A mixed attenuation right subdural hematoma is seen, measuring 2.6 cm in width.? ? Brain:? Mass effect upon the right cerebral hemisphere with right to left midline shift measuring approximately 9.8 mm.? Periventricular and subcortical white matter hypoattenuation, compatible with the sequela of microvascular ischemia. Redemonstrated left cerebellum volume loss. ? Skull and face:? Calvarium and visualized facial bones appear intact, without suspicious lesions.? Left occipital craniotomy change is again noted. ? Sinuses:? Visualized sinuses and mastoids are clear.? ? IMPRESSION:? Acute right subdural hematoma as detailed above.? ? ? Critical findings were communicated to the ordering physician at the time of dictation.? ? Dictated by: Robinson Peterson M.D. on 01/08/2021 at 9:31 ? ? Approved by: Robinson Peterson M.D. on 01/08/2021 at 9:43?? Chest x-ray: Radiologist's Impression: [address] [address] XRay Report Signed Patient: Sparkle Bales MR#: [id number] : 1940 Acct:[id number] Age/Sex: 81 / F Date of Service: 01/08/21 Loc: ED Accession Number: [id number] ?? Procedure: XR chest 1V Ordering Provider: Blayne Tom D.O. PROCEDURE:? XR CHEST 1V ? INDICATIONS:? Fall with chest bruising ? TECHNIQUE:? One view of the chest was acquired.? ? COMPARISON:? [facility], , XR CHEST 1V, 03/07/2020, 11:05. ? FINDINGS:? ? Surgical changes and devices:? None.? ? Lungs and pleura:? Prominence of the pulmonary vasculature, which may reflect pulmonary vascular congestion.? No consolidation,? pleural effusions or pneumothorax.? ? Mediastinum:? Calcified atheromatous change of the aorta.? Persistent enlarged of the cardiac silhouette.? ? Bones and chest wall:? No suspicious bony lesions.? Overlying soft tissues appear unremarkable.? ? IMPRESSION:? 1. Prominence of the pulmonary vasculature, which may represent pulmonary hypertension and/or vascular congestion. ? Dictated by: Robinson Peterson M.D. on 01/08/2021 at 10:09 ? ? Approved by: Robinson Peterson M.D. on 01/08/2021 at 10:11? CT - cervical spine: Radiologist's Impression: [address] [address] [address] Scan Report Signed Patient: Sparkle Bales MR#: [id number] : 1940 Acct:[id number] Age/Sex: 81 / F Date of Service: 01/08/21 Loc: ED Accession Number: [id number] ?? Procedure: CT cervical spine wo con Ordering Provider: Blayne Tom D.O. PROCEDURE:? CT CERVICAL SPINE WO CON ? INDICATIONS:? Fall and confused ? TECHNIQUE:? Noncontrast 3 mm thick sections acquired from the skull base to the T4 level.? Sagittal and coronal reformats were then constructed.? For radiation dose reduction, the following was used:? automated exposure control, adjustment of mA and/or kV according to patient size.? ? COMPARISON:? None. ? FINDINGS: ? Vertebral body height, alignment is well maintained.? Normal bone mineralization, prevertebral soft tissue and craniovertebral relationships present.? No evidence of fracture or traumatic malalignment.? Incidental vertebral hemangioma noted associated with the right C4 articular pillar and pedicle. ? There is disc space narrowing and small posterior osteophytes in the mid cervical spine resulting in [id number] central stenosis at C5-6 and C6-7.? Mild bilateral foraminal stenosis at C6-7. ? IMPRESSION: ? 1. Multilevel degenerative disc disease and arthropathy without fracture or malalignment. 2. Incidental C4 vertebral hemangioma ? Approved by: Naeem Pearson M.D. on 01/08/2021 at 9:25? Extremity x-ray #1: Radiologist's Impression: [place] [address] XRay Report Signed Patient: Sparkle Bales MR#: [id number] : 1940 Acct:[id number] Age/Sex: 81 / F Date of Service: 01/08/21 Loc: ED Accession Number: [id number] ?? Procedure: XR femur RT min 2V Ordering Provider: Blayne Tom D.O. PROCEDURE:? XR FEMUR RT MIN 2V ? INDICATIONS:? Fall with distal femur bruising and pain ? TECHNIQUE:? 4 views of the femur were acquired.? ? COMPARISON:? [facility], CR, XR PELVIS 1-2V, 01/08/2021, 9:50. ? FINDINGS:? ? Bones:? Postsurgical changes are seen from a right total hip arthroplasty.? Hardware alignment appears stable.? No acute osseous fracture or dislocation is seen. ? Soft tissues:? No suspicious soft tissue calcifications or masses.? No knee joint effusion. ? IMPRESSION:? 1. Stable right total hip arthroplasty. 2. No acute osseous abnormality.? If clinical suspicion and/or symptoms persist, additional imaging with repeat plain films, or advanced imaging (e.g. CT, MRI) may be helpful for further assessment. ? ? Dictated by: Jose Armando Boykin M.D. on 01/08/2021 at 10:36 ? ? Approved by: Jose Armando Boykin M.D. on 01/08/2021 at 10:41?? Extremity x-ray #2: Radiologist's Impression: [address] [address] XRay Report Signed Patient: Sparkle Bales MR#: [id number] : 1940 Acct:[id number] Age/Sex: 81 / F Date of Service: 01/08/21 Loc: ED Accession Number: [id number] ?? Procedure: XR pelvis 1-2V Ordering Provider: Blayne Tom D.O. PROCEDURE:? XR PELVIS 1-2V ? INDICATIONS:? Fall with right hip pain ? TECHNIQUE:? Single AP view of the pelvis acquired.? ? COMPARISON:? [facility], CR, PELVIS W UNILATERAL HIP LEFT, 05/16/2014, 16:58. ? FINDINGS:? ? Bones:? No acute fractures or dislocations.? No suspicious bony lesions.? Postsurgical changes are again seen from bilateral hip arthroplasties. ? Soft tissues:? Visualized bowel gas pattern is normal.? No suspicious soft tissue calcifications.? ? IMPRESSION:? Stable bilateral hip arthroplasties.? No acute osseous abnormality.? If clinical suspicion and/or symptoms persist, additional imaging with repeat plain films, or advanced imaging (e.g. CT, MRI) may be helpful for further assessment. ? ? Dictated by: Jose Armando Boykin M.D. on 01/08/2021 at 10:41 ? ? Approved by: Jose Armando Boykin M.D. on 01/08/2021 at 10:42 Extremity x-ray #3: Radiologist's Impression: [address] [address] XRay Report Signed Patient: Sparkle Bales MR#: [id number] : 1940 Acct:[id number] Age/Sex: 81 / F Date of Service: 01/08/21 Loc: ED Accession Number: [id number] ?? Procedure: XR foot LT min 3V Ordering Provider: Blayne Tom D.O. PROCEDURE:? XR FOOT LT MIN 3V ? INDICATIONS:? fall with bruising over the dorsum of the foot ? TECHNIQUE:? Three views of the foot were acquired.? ? COMPARISON:? [facility], CR, XR FOOT 3 VIEWS WEIGHT BEARING RIGHT, 01/17/2020, 11:21. ? FINDINGS:? ? Bones:? There is generalized osteopenia.? No acute fractures or dislocations.? No suspicious bony lesions.? Severe hallux valgus is seen with suspected hammertoe deformities of the lesser digits.? Degenerative changes are seen at the dorsal tarsometatarsal joints. ? Soft tissues:? No suspicious soft tissue calcification. ? IMPRESSION:? 1. No acute osseous abnormality.? If clinical suspicion and/or symptoms persist, additional imaging with repeat plain films, or advanced imaging (e.g. CT, MRI) may be helpful for further assessment. 2. Severe hallux valgus. 3. Moderate to severe tarsometatarsal degenerative changes.? ? ? Dictated by: Jose Armando Boykin M.D. on 01/08/2021 at 10:42 ? ? Approved by: Jose Armando Boykin M.D. on 01/08/2021 at 10:44?? ECG Data Attestation: I personally reviewed and interpreted this ECG as follows: Interpretation: AFib Ventricular rate is 76 Baseline artifact noted Nonspecific ST T wave changes QRS 90 milliseconds MDM Narrative Medical decision making narrative: Patient arrived initially as a code stroke. Last known normal was greater than 12 hours prior to arrival in the ER. EMS report that she is on anticoagulation and they were fairly certain that she had fallen at home although it was unwitnessed. Patient did have left-sided facial droop. Head CT shows right-sided subdural. Have not seen the patient move her left side. Patient was given Kcentra. Was started on nicardipine to lower blood pressure. Discussed the case with [facility]. Dr. Burnette ED attending accepts patient in transfer. I did discuss the case with the patient's daughter Rodrigo who is traveling from out of state. Her phone number is [phone]. This is a cell phone. Another contact number that she gave was [phone]. Patient's daughter is reported to be power of tax associate attorney. She did state that the patient did not want to be kept alive on life support however would consider potential surgical intervention if needed. Patient is currently stable for transport. Discussed the case with neurosurgery. He recommended stopping the nicardipine with keeping systolic blood pressure less than 200. Also recommended giving mannitol. Critical Care Time Critical Care Time Critical Care Time: Yes Total Critical Care Time: 45 Attestation: The high probability of a clinically significant, sudden or life threatening deterioration of the neurologic system(s) required my full and direct attention, intervention and personal management. The aggregate critical care time was [45] minutes. This time is in addition to time spent performing reported procedures but includes the following: [x] Data Review and interpretation [x] Patient assessment and monitoring of vital signs [x] Documentation [x] Medication orders and management Discharge Plan Departure Patient Disposition: [facility] Clinical Impression: Acute subdural hematoma, Contusion of right thigh, Abrasion of left foot Prescriptions: No Action Eliquis 5 MG tablet 5 mg PO BID Qty: 0 RF: 0 trazodone 50 MG tablet 0.5 - 2 tab PO HSP PRN (Reason: Sleep) Qty: 0 RF: 0 carvedilol 25 mg Tablet 25 mg PO SEEINSTR RF: 0 amlodipine 2.5 mg Tablet 2.5 mg PO DAILY RF: 0 hydrocodone-acetaminophen 10-325 mg Tablet 1 tab PO Q4-6H PRN (Reason: Pain) RF: 0 spironolactone 25 mg Tablet 12.5 mg PO DAILY RF: 0 levothyroxine [Synthroid] 88 mcg Tablet 50 mcg PO DAILY RF: 0 atorvastatin 10 mg Tablet 10 mg PO DAILY RF: 0 hydrocodone-acetaminophen [[place]] 10-325 mg tablet 1 tab PO Q6H PRN (Reason: pain) Qty: 42 RF: 0 ascorbic acid (vitamin C) 1,000 mg Tablet 1,000 mg PO DAILY RF: 0 cholecalciferol (vitamin D3) [Vitamin D3] 50 mcg (2,000 unit) Capsule 2,000 unit PO DAILY RF: 0 Referrals: Marycruz Alvarez PA-C [Primary Care Provider] -
--- NOTE | 2021-01-08 09:45 | DI.RAD.S_ITS ---
PROCEDURE: XR PELVIS 1-2V INDICATIONS: Fall with right hip pain TECHNIQUE: Single AP view of the pelvis acquired. COMPARISON: [facility], CR, PELVIS W UNILATERAL HIP LEFT, 05/16/2014, 16:58. FINDINGS: Bones: No acute fractures or dislocations. No suspicious bony lesions. Postsurgical changes are again seen from bilateral hip arthroplasties. Soft tissues: Visualized bowel gas pattern is normal. No suspicious soft tissue calcifications. IMPRESSION: Stable bilateral hip arthroplasties. No acute osseous abnormality. If clinical suspicion and/or symptoms persist, additional imaging with repeat plain films, or advanced imaging (e.g. CT, MRI) may be helpful for further assessment. Dictated by: Jose Armando Boykin M.D. on 01/08/2021 at 10:41 Approved by: Jose Armando Boykin M.D. on 01/08/2021 at 10:42
--- NOTE | 2021-01-08 09:46 | DI.RAD.S_ITS ---
PROCEDURE: XR CHEST 1V INDICATIONS: Fall with chest bruising TECHNIQUE: One view of the chest was acquired. COMPARISON: [facility], CR, XR CHEST 1V, 03/07/2020, 11:05. FINDINGS: Surgical changes and devices: None. Lungs and pleura: Prominence of the pulmonary vasculature, which may reflect pulmonary vascular congestion. No consolidation, pleural effusions or pneumothorax. Mediastinum: Calcified atheromatous change of the aorta. Persistent enlarged of the cardiac silhouette. Bones and chest wall: No suspicious bony lesions. Overlying soft tissues appear unremarkable. IMPRESSION: 1. Prominence of the pulmonary vasculature, which may represent pulmonary hypertension and/or vascular congestion. Dictated by: Robinson Peterson M.D. on 01/08/2021 at 10:09 Approved by: Robinson Peterson M.D. on 01/08/2021 at 10:11
--- NOTE | 2021-01-08 09:47 | DI.RAD.S_ITS ---
PROCEDURE: XR FOOT LT MIN 3V INDICATIONS: fall with bruising over the dorsum of the foot TECHNIQUE: Three views of the foot were acquired. COMPARISON: [facility] [place], ELSIE, XR FOOT 3 VIEWS WEIGHT BEARING RIGHT, 01/17/2020, 11:21. FINDINGS: Bones: There is generalized osteopenia. No acute fractures or dislocations. No suspicious bony lesions. Severe hallux valgus is seen with suspected hammertoe deformities of the lesser digits. Degenerative changes are seen at the dorsal tarsometatarsal joints. Soft tissues: No suspicious soft tissue calcification. IMPRESSION: 1. No acute osseous abnormality. If clinical suspicion and/or symptoms persist, additional imaging with repeat plain films, or advanced imaging (e.g. CT, MRI) may be helpful for further assessment. 2. Severe hallux valgus. 3. Moderate to severe tarsometatarsal degenerative changes. Dictated by: Jose Armando Boykin M.D. on 01/08/2021 at 10:42 Approved by: Jose Armando Boykin M.D. on 01/08/2021 at 10:44
--- NOTE | 2021-01-08 09:47 | DI.CT.S_ITS ---
PROCEDURE: CT CERVICAL SPINE WO CON INDICATIONS: Fall and confused TECHNIQUE: Noncontrast 3 mm thick sections acquired from the skull base to the T4 level. Sagittal and coronal reformats were then constructed. For radiation dose reduction, the following was used: automated exposure control, adjustment of mA and/or kV according to patient size. COMPARISON: None. FINDINGS: Vertebral body height, alignment is well maintained. Normal bone mineralization, prevertebral soft tissue and craniovertebral relationships present. No evidence of fracture or traumatic malalignment. Incidental vertebral hemangioma noted associated with the right C4 articular pillar and pedicle. There is disc space narrowing and small posterior osteophytes in the mid cervical spine resulting in [id number] central stenosis at C5-6 and C6-7. Mild bilateral foraminal stenosis at C6-7. IMPRESSION: 1. Multilevel degenerative disc disease and arthropathy without fracture or malalignment. 2. Incidental C4 vertebral hemangioma Approved by: Naeem Pearson M.D. on 01/08/2021 at 9:25
[2021-01-08 09:52] LABS: INR 1.3 (0.9-1.3); Prothrombin Time 14.6 SECONDS (10.1-12.7)
[2021-01-08 09:55] LABS: PTT Partial Thromboplastin Tim 27 SECONDS (26.4-36.2)
[2021-01-08 09:56] LABS: Alanine Aminotransferase 33 IU/L (<35); Albumin 4.5 g/dL (3.5-5.0); Albumin Globulin Ratio 1.4 (1.0-2.8); Alkaline Phosphatase 109 U/L (38-126); Aspartate Aminotransferase 43 IU/L (14-36); Bilirubin Total 1.7 mg/dL (0.2-1.3); Blood Urea Nitrogen 23 mg/dL (7-17); Calcium 9.9 mg/dL (8.4-10.2); Carbon Dioxide 28 mmol/L (22-32); Chloride 99 mmol/L (98-107); Creatine Kinase 65 U/L (30-135); Estimated Glomerular Filt Rate > 60.0 mL/min (>60); Ethanol (ETOH) < 10 mg/dL; Globulin 3.2 g/dL (1.7-4.1); Glucose 145 mg/dL (80-110); HEMOLYSIS < 15 (0-50); Lipase 116 U/L (23-300); Potassium 3.8 mmol/L (3.4-5.1); Sodium 134 mmol/L (137-145); Total Protein 7.7 g/dL (6.3-8.2)
[2021-01-08 10:08] LABS: Troponin I 0.102 ng/mL (0.01-0.034)
[2021-01-08 10:13] LABS: COVID19 -Nasal RAPID Negative (Negative)
[2021-01-08] MEDS: fentaNYL 100 MCG/2 ML INJ 25 MCG IV (10:21)
[2021-01-08 10:26] LABS: Thyroid Stimulating Hormone 5.34 uIU/mL (0.47-4.68)
[2021-01-08] MEDS: PROTHROMBIN CPLX(PCC)4FACT 2,000 UNIT in ISOOSMOTIC VEHICLE 0 ML 460.8 ML IV (10:29)
[2021-01-08] MEDS: NICARDIPINE 25 MG in SODIUM CHLORIDE 0.9% 240 ML 50 ML IV (11:56)
[2021-01-08 12:09] LABS: Appearance Urine UA SL CLOUDY; Bilirubin Urine UA NEGATIVE (NEGATIVE); Color Urine UA YELLOW; Glucose Urine UA NEGATIVE (Negative); Ketones Urine UA NEGATIVE (NEGATIVE); Leukocyte Esterase Urine UA NEGATIVE (NEGATIVE); Nitrite Urine UA POSITIVE (Negative); Occult Blood Urine UA 2+ (Negative); Protein Urine UA NEGATIVE (Negative); Urobilinogen Urine UA 0.2 E.U./dL (0.2)
[2021-01-08 12:17] LABS: pH Urine UA 7.5 (4.5-8.0)
[2021-01-08 12:33] LABS: Bacteria Urine Many (>30); Culture Indicated Urine Specimen Cultured; RBC Urine 1-5/HPF (0-5/HPF); Squamous Epithelial Cell Urine None Seen (0-5/HPF); WBC Urine 5-10/HPF (0-5/HPF)
--- NOTE | 2021-01-08 13:01 | PC.NURSE ---
Nicradipine gtt for HTN D/C'd by Dr Tom per Neuro. Mannitol 64g over 1 hr ordered for pt. Airl[facility] in de[place] [facility] [place]itol received from pharmacy and given to ADAN RN on way out of department to infuse in flight. Mannitol infusion was not started in the ED. pt departed ED at 1230
--- NOTE | 2021-01-08 13:11 | PC.NURSE ---
Cspine cleared by Dr Tom at 1000
== END 2021-01-08 12:30 | disposition short-term general hospital (02) ==
LOC: ED 10:02
PROVIDERS: Emergency Provider Emergency Medicine; PCP Physician Assistant
DX: S06.5X9A Traumatic subdural hemorrhage with loss of consciousness of unspecified duration, initial encounter (principal); S70.11XA Contusion of right thigh, initial encounter; S90.812A Abrasion, left foot, initial encounter; M79.604 Pain in right leg; Z79.01 Long term (current) use of anticoagulants; Z20.822 Contact with and (suspected) exposure to COVID-19; W19.XXXA Unspecified fall, initial encounter
CPT/HCPCS: 36415; 70450; 71045; 72125; 72170; 73552; 73630; 80053; 80320; 81001; 82550; 82962; 83690; 84443; 84484; 85025; 85610; 85730; 87077; 87086; 87186; 87635; 93005; 93010; 96365; 96375; 99285; 99291; 99292; C9803; G0390; J3010; J7168

== ENCOUNTER 2021-04-25 10:17 | Emergency (ER) | payer MEDICARE, SELFPAY ==
[2021-04-25] VITALS (13 sets, daily range): BP systolic 125–146; BP diastolic 63–81; PULSE 58–70; RESP 14–20; TEMP 36.6; O2SAT 96–98; BMI 22.6
--- NOTE | 2021-04-25 10:24 | PC.NURSE ---
in and out cath for urine sample to lab.
--- NOTE | 2021-04-25 10:27 | PC.NURSE ---
Pt having frequent urination.
[2021-04-25 10:36] LABS: Appearance Urine UA CLEAR; Bilirubin Urine UA NEGATIVE (NEGATIVE); Color Urine UA YELLOW; Glucose Urine UA NEGATIVE (Negative); Ketones Urine UA NEGATIVE (NEGATIVE); Leukocyte Esterase Urine UA NEGATIVE (NEGATIVE); Nitrite Urine UA NEGATIVE (Negative); Occult Blood Urine UA NEGATIVE (Negative); Protein Urine UA NEGATIVE (Negative); Urobilinogen Urine UA 0.2 E.U./dL (0.2)
--- NOTE | 2021-04-25 10:49 | ED.GENADULT ---
HPI - General Adult General Chief complaint: Urogenital-Female Stated complaint: Possible UTI,increased urination,weakness Time Seen by Provider: 04/25/21 10:17 Source: patient and EMS Mode of arrival: EMS History of Present Illness HPI narrative: 81-year-old female. Here for evaluation of frequent urination, urinary incontinence, concern for urinary tract infection, weakness. Symptoms have been worsening over the past couple days. It appears that the weakness has mostly been in the morning. She has had a intracranial hemorrhage in the past. Was in rehab for a significant period of time. Has been home for the past several weeks. Does have [facility]. Over the past couple days specifically in the morning she has needed more assistance with getting up and moving around. She uses a walker at baseline. Towards the afternoon this seems to improve and she is able to walk with the walker at home. She has also had issues with urinary incontinence. This is not consistent. There are times when she can feel like she needs to urinate and can not make it to the bathroom however family at bedside states that over the past couple nights she has needed changed multiple times through the night. They were concerned about the amount of urine that she is having along with incontinence. Related Data Home Medications Medication Instructions Recorded Confirmed apixaban 5 mg tablet (Eliquis) 5 mg PO BID #0 05/21/16 03/07/20 trazodone 50 mg tablet 0.5 - 2 tab PO HSP PRN #0 05/21/16 03/07/20 amlodipine 2.5 mg tablet 2.5 mg PO DAILY 12/08/19 03/07/20 atorvastatin 10 mg tablet 10 mg PO DAILY 12/08/19 03/07/20 carvedilol 25 mg tablet 25 mg PO SEEINSTR 12/08/19 03/07/20 hydrocodone 10 mg-acetaminophen 1 tab PO Q4-6H PRN 12/08/19 03/07/20 325 mg tablet levothyroxine 88 mcg tablet 50 mcg PO DAILY 12/08/19 03/07/20 (Synthroid) spironolactone 25 mg tablet 12.5 mg PO DAILY 12/08/19 03/07/20 ascorbic acid (vitamin C) 1,000 mg 1,000 mg PO DAILY 03/07/20 03/07/20 tablet cholecalciferol (vitamin D3) 50 2,000 unit PO DAILY 03/07/20 03/07/20 mcg (2,000 unit) capsule (Vitamin D3) Previous Rx's Medication Instructions Recorded hydrocodone 10 mg-acetaminophen 1 tab PO Q6H PRN #42 tab 12/09/19 325 mg tablet ([place]) Allergies Allergy/AdvReac Type Severity Reaction Status Date / Time hydroxyzine Allergy Severe EXCESSIVE Verified 04/25/21 10:24 DROWSINESS/SLEEPINESS AND CONFUSION codeine AdvReac Severe NAUSEA/VOMI Verified 04/25/21 10:24 TING acetaminophen [From Percocet] AdvReac Vomiting Verified 04/25/21 10:24 adhesive tape AdvReac Rash Verified 04/25/21 10:24 oxycodone [From Percocet] AdvReac Vomiting Verified 04/25/21 10:24 Review of Systems Constitutional Constitutional: Reports as per HPI and Reports system reviewed and no additional complaints, except as documented Cardiovascular Cardiovascular: Denies chest pain and Denies dyspnea Respiratory Respiratory: Denies dyspnea Gastrointestinal Gastrointestinal: Denies abdominal pain Genitourinary Genitourinary: Reports system reviewed and no additional complaints, except as documented and Reports as per HPI Integumentary/Breasts Skin/Breast: Reports system reviewed and no additional complaints, except as documented Neurologic Neurologic: Reports system reviewed and no additional complaints, except as documented Hematologic/Lymphatic On Anticoagulants: No Allergic/Immunologic Allergic/Immunologic: Reports system reviewed and no additional complaints, except as documented Patient History Medical History Acoustic neuroma Afib Arthritis Ataxia Cardiomegaly Elevated blood sugar History of anticoagulant use HLD (hyperlipidemia) HTN (hypertension) Hypercalcemia Hypothyroid Mitral regurgitation Osteopenia Pulmonary HTN Tricuspid regurgitation Surgical History History of cataract extraction History of hip replacement (2005) History of hysterectomy (1992) Social History household members: none Smoking Status: Never smoker alcohol intake: current Smoking Status: Never smoker alcohol intake frequency: holidays/special occasions only Substance Use Type: does not use Exam Initial Vital Signs Initial Vital Signs: Vital Signs Pulse Rate 66 04/25/21 10:23 Pulse Oximetry 98 04/25/21 10:23 HENMT Head: normal to inspection and normocephalic Resp Effort & Inspection: normal respiratory effort Auscultation: clear to auscultation bilaterally Cardio Rate: regular rate Rhythm: regular rhythm GI Inspection: normal to inspection Skin General: no rashes or lesions noted Neuro General: patient alert, patient awake and moves all extremities Extrem General: normal to inspection and capillary refill normal Psych Appearance: grossly normal and well kempt Course Orders Ordered: ED Orders 04/25/21 10:20 Urinalysis and Microscopic Stat Urine Culture Stat 04/25/21 11:11 Complete Blood Count AUTO DIFF Stat Comprehensive Metabolic Panel Stat Lipase Stat Magnesium Stat Vital Signs Vital signs: Vital Signs - 8 hr 04/25/21 10:30 04/25/21 10:31 04/25/21 11:00 Pulse Rate 70 67 61 Respiratory Rate 20 Blood Pressure 138/63 Pulse Oximetry 98 98 96 04/25/21 11:13 04/25/21 11:30 04/25/21 11:45 Pulse Rate 63 65 66 Respiratory Rate 20 18 Blood Pressure 134/63 146/74 H 125/81 Pulse Oximetry 97 97 97 04/25/21 12:00 04/25/21 12:30 04/25/21 12:49 Pulse Rate 61 60 Respiratory Rate 18 18 Blood Pressure 127/72 139/64 Pulse Oximetry 98 98 98 04/25/21 13:01 04/25/21 13:09 Pulse Rate 58 L Respiratory Rate 18 Blood Pressure 144/73 H Pulse Oximetry 98 Medical Decision Making Lab Data Lab results reviewed: Yes I reviewed the patient's lab results. Result diagrams: 04/25/21 11:11 04/25/21 11:11 Labs: Lab Results 04/25/21 04/25/21 04/25/21 Range/Units 10:20 11:11 11:11 WBC 6.4 (4.5-11.0) X10^3/uL RBC 3.66 L (4.0-5.2) X10^6/uL Hgb 10.9 L (12.0-16.0) g/dL Hct 32.1 L (36-46) % MCV 87.7 (80-100) fL MCH 29.7 (26-34) PG MCHC 33.9 (30-36) % RDW 14.9 H (11.6-14.8) % Plt Count 222 (150-400) X10^3/uL Neut % (Auto) 66.2 (50-75) % Lymph % (Auto) 22.9 L (25-40) % [place] % (Auto) 7.7 (3-14) % Eos % (Auto) 2.0 (2-4) % Baso % (Auto) 1.2 (0-2) % Neut # (Auto) 4300 (5371-0282) /uL Lymph # (Auto) 1500 (0226-9360) /uL [place] # (Auto) 500 (0-900) /uL Eos # (Auto) 100 (0-450) /uL Baso # (Auto) 100 (0-100) /uL Sodium 139 (137-145) mmol/L Potassium 4.2 (3.4-5.1) mmol/L Chloride 106 (98-107) mmol/L Carbon Dioxide 31 (22-32) mmol/L BUN 18 H (7-17) mg/dL Creatinine 0.77 (0.52-1.04) mg/dL Estimated GFR > 60.0 (>60) mL/min BUN/Creatinine Ratio 23.4 H (6-22) Glucose 132 H (80-110) mg/dL Calcium 9.8 (8.4-10.2) mg/dL Magnesium 2.4 H (1.6-2.3) mg/dL Total Bilirubin 0.9 (0.2-1.3) mg/dL AST 25 (14-36) IU/L ALT 17 (<35) IU/L Alkaline Phosphatase 104 (38-126) U/L Total Protein 7.1 (6.3-8.2) g/dL Albumin 3.9 (3.5-5.0) g/dL Globulin 3.2 (1.7-4.1) g/dL Albumin/Globulin Ratio 1.2 (1.0-2.8) Lipase 141 (23-300) U/L Urine Color Yellow Urine Appearance Clear Urine pH 7.0 (4.5-8.0) Ur Specific [place] 1.010 (1.000-1.035) Urine Protein Negative (Negative) Urine Glucose (UA) Negative (Negative) g/dL Urine Ketones Negative (NEGATIVE) Urine Occult Blood Negative (Negative) Urine Nitrate Negative (Negative) Urine Bilirubin Negative (NEGATIVE) Urine Urobilinogen 0.2 (0.2) E.U./dL Ur Leukocyte Esterase Negative (NEGATIVE) Urine RBC None seen (0-5/HPF) Urine WBC 0-1/hpf (0-5/HPF) Ur Squamous Epith Cells 0-1 /hpf (0-5/HPF) Urine Bacteria None seen (None) Ur Culture Indicated? Culture not indicate MDM Narrative Medical decision making narrative: Labs unremarkable, vital signs are unremarkable. No fevers. Exam unremarkable. No signs of urinary tract infection. Had a discussion with both the patient and family at bedside regarding her presenting symptoms. No indication for antibiotics. We did discuss potentially placing a Thao catheter in order to help with a urinary continence and also other hygiene to prevent skin breakdown another potential topical infections. They would like to hold on a Thao catheter for now. We did discuss her weakness. We did discuss the Seroquel that she has taken and also the melatonin that she is taking at night. Some concern that potentially these of the medications causing her weakness as as the day goes on she her symptoms seem to improve somewhat. We discussed admission to the hospital the patient would like to avoid this for now. Plan was to decrease her Seroquel from 25 mg to 12.5 mg and she is going to take this in the afternoon. She is going to continue to take the melatonin at night. They will make adjustments these medications depending on how she reacts to the symptoms. We also discussed potentially needing a referral to see Urology or Urogynecology given her presenting urinary symptoms today. I also encouraged him to keep a diary as to how much fluid that she is taking as this may be an issue as well. Expressed understanding and agreement this plan. Discharge Plan Departure Patient Disposition: Home Clinical Impression: Urinary incontinence, Hx of urinary frequency, Weakness Instructions: Urinary Incontinence -- Female Activity Restrictions/Additional Instructions: I recommend that you decrease the Seroquel like we discussed. I also recommend that you keep a diary to determine exactly how much oral fluids your taking throughout the day. Contact your primary doctor for a follow-up. Return to the emergency department for any new or worsening symptoms. Prescriptions: No Action Eliquis 5 MG tablet 5 mg PO BID Qty: 0 0RF trazodone 50 MG tablet 0.5 - 2 tab PO HSP PRN (Reason: Sleep) Qty: 0 0RF carvedilol 25 mg Tablet 25 mg PO SEEINSTR 0RF Rx Instructions: 12.5mg qam, 25mg qpm amlodipine 2.5 mg Tablet 2.5 mg PO DAILY 0RF hydrocodone-acetaminophen 10-325 mg Tablet 1 tab PO Q4-6H PRN (Reason: Pain) 0RF spironolactone 25 mg Tablet 12.5 mg PO DAILY 0RF levothyroxine [Synthroid] 88 mcg Tablet 50 mcg PO DAILY 0RF atorvastatin 10 mg Tablet 10 mg PO DAILY 0RF hydrocodone-acetaminophen [[place]] 10-325 mg tablet 1 tab PO Q6H PRN (Reason: pain) Qty: 42 0RF ascorbic acid (vitamin C) 1,000 mg Tablet 1,000 mg PO DAILY 0RF cholecalciferol (vitamin D3) [Vitamin D3] 50 mcg (2,000 unit) Capsule 2,000 unit PO DAILY 0RF Referrals: Marycruz Alvarez PA-C [Primary Care Provider] -
[2021-04-25 11:20] LABS: Add Manual Diff / Slide Review NO; Basophils Absolute Auto 100 /uL (0-100); Basophils Percent Auto 1.2 % (0-2); Eosinophils Absolute Auto 100 /uL (0-450); Hematocrit 32.1 % (36-46); Hemoglobin 10.9 g/dL (12.0-16.0); Lymphocytes Absolute Auto 1500 /uL (1100-4500); Lymphocytes Percent Auto 22.9 % (25-40); Mean Corpuscular HGB Conc 33.9 % (30-36); Mean Corpuscular Hemoglobin 29.7 PG (26-34); Mean Corpuscular Volume 87.7 fL (80-100); Monocytes Absolute Auto 500 /uL (0-900); Monocytes Percent Auto 7.7 % (3-14); Neutrophils Absolute Auto 4300 /uL (1500-7000); Neutrophils Percent Auto 66.2 % (50-75); Platelet Count 222 X10^3/uL (150-400); Red Blood Cell Count 3.66 X10^6/uL (4.0-5.2); Red Cell Distribution Width 14.9 % (11.6-14.8); White Blood Cell Count 6.4 X10^3/uL (4.5-11.0)
[2021-04-25 11:20] LABS: Bacteria Urine None Seen; RBC Urine None Seen (0-5/HPF); Squamous Epithelial Cell Urine 0-1 /HPF (0-5/HPF); WBC Urine 0-1/HPF (0-5/HPF)
[2021-04-25 11:36] LABS: Alanine Aminotransferase 17 IU/L (<35); Albumin 3.9 g/dL (3.5-5.0); Albumin Globulin Ratio 1.2 (1.0-2.8); Alkaline Phosphatase 104 U/L (38-126); Aspartate Aminotransferase 25 IU/L (14-36); BUN Creatinine Ratio 23.4 (6-22); Bilirubin Total 0.9 mg/dL (0.2-1.3); Blood Urea Nitrogen 18 mg/dL (7-17); Calcium 9.8 mg/dL (8.4-10.2); Carbon Dioxide 31 mmol/L (22-32); Chloride 106 mmol/L (98-107); Estimated Glomerular Filt Rate > 60.0 mL/min (>60); Globulin 3.2 g/dL (1.7-4.1); Glucose 132 mg/dL (80-110); HEMOLYSIS < 15 (0-50); Lipase 141 U/L (23-300); Magnesium 2.4 mg/dL (1.6-2.3); Potassium 4.2 mmol/L (3.4-5.1); Sodium 139 mmol/L (137-145); Total Protein 7.1 g/dL (6.3-8.2)
== END 2021-04-25 14:04 | disposition home or self-care (01) ==
PROVIDERS: Emergency Provider Emergency Medicine; PCP Physician Assistant
DX: R32 Unspecified urinary incontinence (principal); Z87.440 Personal history of urinary (tract) infections; R53.1 Weakness
CPT/HCPCS: 36415; 80053; 81001; 83690; 83735; 85025; 87086; 99283

== ENCOUNTER → 2021-05-14 12:55 | Outpatient (CLI) | payer MEDICARE, SELFPAY | PROVIDERS: PCP Physician Assistant; Visit Provider Student in an Organized Health Care Education/Training Program | DX: R41.0 Disorientation, unspecified (principal); R82.90 Unspecified abnormal findings in urine | CPT/HCPCS: 87086 ==

== ENCOUNTER 2021-05-28 10:35 | Emergency (ER) | payer MEDICARE, SELFPAY ==
[2021-05-28] VITALS (15 sets, daily range): BP systolic 99–193; BP diastolic 56–79; PULSE 58–74; RESP 18–25; TEMP 36.4; O2SAT 97–99
--- NOTE | 2021-05-28 10:38 | ED_ITS ---
HPI - Fall General Chief Complaint: Trauma Stated Complaint: Mod Trauma/ Fall on Coumadin/Head injury Time Seen by Provider: 05/28/21 10:38 History of Present Illness HPI Narrative: 81 year Female history of MS, cognitive and memory issues, atrial fibrillation on Eliquis, did instability frequent falls who presents today after mechanical fall. She has a caregiver at home she was reaching for something fell backwards hit her head on a dresser she has hematoma behind the right ear. No loss of consciousness. No nausea or vomiting. However she has had increased falls over last few days. She denies any pain. Overall she does not want to be here. Related Data Home Medications Medication Instructions Recorded Confirmed apixaban 5 mg tablet (Eliquis) 5 mg PO BID #0 05/21/16 05/14/21 trazodone 50 mg tablet 0.5 - 2 tab PO HSP PRN #0 05/21/16 05/14/21 amlodipine 2.5 mg tablet 2.5 mg PO DAILY 12/08/19 05/14/21 atorvastatin 10 mg tablet 10 mg PO DAILY 12/08/19 05/14/21 carvedilol 25 mg tablet 25 mg PO SEEINSTR 12/08/19 05/14/21 levothyroxine 88 mcg tablet 50 mcg PO DAILY 12/08/19 05/14/21 (Synthroid) spironolactone 25 mg tablet 12.5 mg PO DAILY 12/08/19 05/14/21 ascorbic acid (vitamin C) 1,000 mg 1,000 mg PO DAILY 03/07/20 05/14/21 tablet cholecalciferol (vitamin D3) 50 2,000 unit PO DAILY 03/07/20 05/14/21 mcg (2,000 unit) capsule (Vitamin D3) citalopram 10 mg tablet 10 mg PO DAILY 05/14/21 05/14/21 Allergies Allergy/AdvReac Type Severity Reaction Status Date / Time hydroxyzine Allergy Severe EXCESSIVE Verified 05/14/21 11:54 DROWSINESS/SLEEPINESS AND CONFUSION codeine AdvReac Severe NAUSEA/VOMI Verified 05/14/21 11:54 TING adhesive tape AdvReac Rash Verified 05/14/21 11:54 oxycodone [From Percocet] AdvReac Vomiting Verified 05/14/21 11:54 Review of Systems Review of Systems Narrative: GENERAL: Denies chills, fatigue, malaise, fever, sweats, travel HEENT: Denies sinus pain, ear pain, sore throat, difficulty swallowing, neck pain RESPIRATORY: Denies dyspnea, cough, wheezing, hemoptysis, sputum. CARDIOVASCULAR: Denies chest pain, palpitations, orthopnea, edema GASTROINTESTINAL: Denies nausea, vomiting, abdominal pain, diarrhea, constipation, melena. : Denies dysuria, frequency, incontinence, hematuria, urinary retention, flank pain. MUSCULOSKELETAL: Denies weakness, joint pain, or bony pain SKIN: No rash, no erythema, no pruritus NEUROLOGIC: See HPI PSYCHIATRIC: No concerning psychosocial issues. 12 point review of systems is negative except for those stated above and HPI Patient History Medical History (Updated 05/28/21 @ 14:11 by Kinza Fernandez DO) Acoustic neuroma Afib Arthritis Ataxia Cardiomegaly Elevated blood sugar History of anticoagulant use HLD (hyperlipidemia) HTN (hypertension) Hypercalcemia Hypothyroid Mitral regurgitation Osteopenia Pulmonary HTN Tricuspid regurgitation Surgical History History of cataract extraction History of hip replacement (2005) History of hysterectomy (1992) Social History household members: none Smoking Status: Never smoker alcohol intake: current Smoking Status: Never smoker alcohol intake frequency: holidays/special occasions only Substance Use Type: does not use Exam Initial Vital Signs Initial Vital Signs: Vital Signs Pulse Rate 58 L 05/28/21 10:39 Blood Pressure 193/79 H 05/28/21 10:39 Pulse Oximetry 98 05/28/21 10:39 GENERAL: Alert 81-year-old female no acute distress HEENT: Head hematoma right postauricular, ,EOMI, pupils reactive, face symmetric, moist mucous membranes EARS: Tympanic membranes visualized, no erythema or bulging, no hemotympanum CARDIOVASCULAR: Regular rate and rhythm without murmurs, rubs or gallops. RESPIRATORY: Breath sounds equal bilaterally, no wheezes rales or rhonchi. ABDOMEN: Soft, nontender. Normoactive bowel sounds all 4 quadrants. No guarding or rebound. EXTREMITIES: Normal range of motion, no clubbing or edema. Neurovascularly intact. 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 Scores GCS [place] coma scale eye opening: Spontaneous [place] coma scale verbal response: Confused [place] coma scale motor response: Obey commands [place] coma scale total score: 14 Course Orders Ordered: ED Orders 05/28/21 10:39 CT cervical spine wo con Stat CT head/brain wo con Stat XR chest 1V Stat Partial Thromboplastin Time Stat Prothrombin Time INR Stat 05/28/21 10:58 Complete Blood Count AUTO DIFF Stat Comprehensive Metabolic Panel Stat Lactate (Lactic Acid) Stat Lipase Stat Procalcitonin Stat Troponin & CK Cardiac Panel Stat 05/28/21 11:35 EKG-12 Lead Stat 05/28/21 11:47 Blood Culture Stat 05/28/21 12:17 Consult to [facility] [place] [facility] Stat 05/28/21 12:24 Urinalysis and Microscopic Stat Urine Culture Stat 05/28/21 14:30 CT head/brain wo con Stat Vital Signs Vital signs: Vital Signs - 8 hr 05/28/21 11:30 05/28/21 11:31 05/28/21 12:30 Pulse Rate 62 67 62 Respiratory Rate 18 18 20 Blood Pressure 163/72 H Pulse Oximetry 98 98 05/28/21 13:00 05/28/21 13:30 05/28/21 14:00 Pulse Rate 62 62 73 Respiratory Rate 19 21 21 Blood Pressure Pulse Oximetry 05/28/21 14:21 05/28/21 14:30 05/28/21 14:52 Pulse Rate 67 67 66 Respiratory Rate 25 H 23 22 Blood Pressure 143/66 H 114/60 Pulse Oximetry 98 05/28/21 15:00 05/28/21 15:30 Pulse Rate 63 74 Respiratory Rate 21 24 Blood Pressure 110/56 L 99/72 Pulse Oximetry 99 MDM - Fall Lab Data Result diagrams: 05/28/21 10:58 05/28/21 10:58 Labs: Lab Results 05/28/21 05/28/21 05/28/21 Range/Units 10:39 10:58 10:58 WBC 7.8 (4.5-11.0) X10^3/uL RBC 3.98 L (4.0-5.2) X10^6/uL Hgb 11.6 L (12.0-16.0) g/dL Hct 34.0 L (36-46) % MCV 85.5 (80-100) fL MCH 29.2 (26-34) PG MCHC 34.1 (30-36) % RDW 14.6 (11.6-14.8) % Plt Count 232 (150-400) X10^3/uL Neut % (Auto) 65.2 (50-75) % Lymph % (Auto) 22.9 L (25-40) % [place] % (Auto) 9.6 (3-14) % Eos % (Auto) 1.6 L (2-4) % Baso % (Auto) 0.7 (0-2) % Neut # (Auto) 5100 (3140-1897) /uL Lymph # (Auto) 1800 (6784-0776) /uL [place] # (Auto) 700 (0-900) /uL Eos # (Auto) 100 (0-450) /uL Baso # (Auto) 100 (0-100) /uL PT 18.0 H (10.1-12.7) SECONDS INR 1.6 H (0.9-1.3) APTT 35 D (26.4-36.2) SECONDS Sodium 137 (137-145) mmol/L Potassium 4.6 (3.4-5.1) mmol/L Chloride 104 (98-107) mmol/L Carbon Dioxide 28 (22-32) mmol/L BUN 20 H (7-17) mg/dL Creatinine 0.72 (0.52-1.04) mg/dL Estimated GFR > 60.0 (>60) mL/min BUN/Creatinine Ratio 27.8 H (6-22) Glucose 93 (80-110) mg/dL Lactate (0.7-2.1) mmol/L Calcium 10.0 (8.4-10.2) mg/dL Total Bilirubin 1.2 (0.2-1.3) mg/dL AST 32 (14-36) IU/L ALT 20 (<35) IU/L Alkaline Phosphatase 124 (38-126) U/L Total Creatine Kinase 42 (30-135) U/L CK-MB (CK-2) TNP CK-MB (CK-2) Rel Index TNP Troponin I < 0.012 (0.01-0.034) ng/mL Total Protein 8.0 (6.3-8.2) g/dL Albumin 4.3 (3.5-5.0) g/dL Globulin 3.7 (1.7-4.1) g/dL Albumin/Globulin Ratio 1.2 (1.0-2.8) Lipase 157 (23-300) U/L Procalcitonin 0.07 (<0.5) ng/mL Urine Color Urine Appearance Urine pH (4.5-8.0) Ur Specific [place] (1.000-1.035) Urine Protein (Negative) Urine Glucose (UA) (Negative) g/dL Urine Ketones (NEGATIVE) Urine Occult Blood (Negative) Urine Nitrate (Negative) Urine Bilirubin (NEGATIVE) Urine Urobilinogen (0.2) E.U./dL Ur Leukocyte Esterase (NEGATIVE) Urine RBC (0-5/HPF) Urine WBC (0-5/HPF) Ur Squamous Epith Cells (0-5/HPF) Amorphous Sediment Urine Bacteria (None) Ur Culture Indicated? 05/28/21 05/28/21 Range/Units 10:58 12:24 WBC (4.5-11.0) X10^3/uL RBC (4.0-5.2) X10^6/uL Hgb (12.0-16.0) g/dL Hct (36-46) % MCV (80-100) fL MCH (26-34) PG MCHC (30-36) % RDW (11.6-14.8) % Plt Count (150-400) X10^3/uL Neut % (Auto) (50-75) % Lymph % (Auto) (25-40) % [place] % (Auto) (3-14) % Eos % (Auto) (2-4) % Baso % (Auto) (0-2) % Neut # (Auto) (6661-5827) /uL Lymph # (Auto) (5857-7518) /uL [place] # (Auto) (0-900) /uL Eos # (Auto) (0-450) /uL Baso # (Auto) (0-100) /uL PT (10.1-12.7) SECONDS INR (0.9-1.3) APTT (26.4-36.2) SECONDS Sodium (137-145) mmol/L Potassium (3.4-5.1) mmol/L Chloride (98-107) mmol/L Carbon Dioxide (22-32) mmol/L BUN (7-17) mg/dL Creatinine (0.52-1.04) mg/dL Estimated GFR (>60) mL/min BUN/Creatinine Ratio (6-22) Glucose (80-110) mg/dL Lactate 0.6 L (0.7-2.1) mmol/L Calcium (8.4-10.2) mg/dL Total Bilirubin (0.2-1.3) mg/dL AST (14-36) IU/L ALT (<35) IU/L Alkaline Phosphatase (38-126) U/L Total Creatine Kinase (30-135) U/L CK-MB (CK-2) CK-MB (CK-2) Rel Index Troponin I (0.01-0.034) ng/mL Total Protein (6.3-8.2) g/dL Albumin (3.5-5.0) g/dL Globulin (1.7-4.1) g/dL Albumin/Globulin Ratio (1.0-2.8) Lipase (23-300) U/L Procalcitonin (<0.5) ng/mL Urine Color Yellow Urine Appearance Clear Urine pH 6.5 (4.5-8.0) Ur Specific [place] 1.010 (1.000-1.035) Urine Protein Negative (Negative) Urine Glucose (UA) Negative (Negative) g/dL Urine Ketones Negative (NEGATIVE) Urine Occult Blood Negative (Negative) Urine Nitrate Negative (Negative) Urine Bilirubin Negative (NEGATIVE) Urine Urobilinogen 0.2 (0.2) E.U./dL Ur Leukocyte Esterase Negative (NEGATIVE) Urine RBC None seen (0-5/HPF) Urine WBC 0-1/hpf (0-5/HPF) Ur Squamous Epith Cells 0-1 /hpf (0-5/HPF) Amorphous Sediment 1+ Urine Bacteria Few (2-10) H (None) Ur Culture Indicated? Specimen cultured Imaging Data CT scan - head: Radiologist's Impression: PROCEDURE:? CT HEAD/BRAIN WO CON ? INDICATIONS:? fall on pradaxa right side hematoma ? TECHNIQUE:? Noncontrast 4.5 mm thick angled axial sections acquired from the foramen magnum to the vertex, with coronal and sagittal reformats.? For radiation dose reduction, the following was used:? automated exposure control, adjustment of mA and/or kV according to patient size.? ? COMPARISON:? [facility], CT, CT HEAD/BRAIN WO CON, 01/08/2021, 9:32. ? FINDINGS:? Image quality:? Excellent.? ? CSF spaces:? Basal cisterns are patent.? No extra-axial fluid collections.? The ventricles are symmetric in size and shape.? ? Brain:? There is questionable high-density fluid tracking along a solitary right temporoparietal sulcus (series 2/image 16).? No other findings to suggest extra- axial hemorrhage.? No intraparenchymal hemorrhage.? There is cerebral volume loss for age, with resultant ventricular and sulcal prominence.? There are periventricular and deep white matter chronic small vessel ischemic changes.? There is intracranial internal carotid artery atherosclerosis.? ? Skull and face:? Patient is status post right-sided osteotomy.? There is a small subgaleal hematoma which is located just inferior and posterior to the posterior aspect of this osteotomy.? There is slight displacement of the calvarial bones within the posterior aspect of this osteotomy.? No prior postoperative comparisons are available to determine the acuity of this finding.? Visualized bones appear intact, without suspicious lesions.? ? Sinuses:? Visualized sinuses and mastoids are clear.? ? IMPRESSION:? ? 1. Questionable trace subarachnoid hemorrhage in the right temporoparietal lobe as above. ?No other findings to suggest intracranial hemorrhage. ? ? 2. Questionable widening of the posterior aspect of the right osteotomy with adjacent subgaleal hematoma.? It is unclear whether there has been displacement of the osteotomy or this is an incidental finding.? Neuro surgical consultation recommended. ? 3. Findings likely associated with chronic microvascular ischemic changes. ? These findings were discussed with Dr. Fernandez at 11:15 a.mStephen On May 28, 2021. ? Dictated by: Shakira Scott M.D. on 05/28/2021 at 11:11 ? ? Approved by: Shakira Scott M.D. on 05/28/2021 at 11:20 ? CT head #2: Radiologist's Impression: PROCEDURE:? CT HEAD/BRAIN WO CON ? INDICATIONS:? repeat head ?sah and right sided widening of osteomy ? TECHNIQUE:? Noncontrast 4.5 mm thick angled axial sections acquired from the foramen magnum to the vertex, with coronal and sagittal reformats.? For radiation dose reduction, the following was used:? automated exposure control, adjustment of mA and/or kV according to patient size.? ? COMPARISON:? [facility], CT, CT HEAD/BRAIN WO CON, 01/08/2021, 9:32.? [facility], CT, CT HEAD/BRAIN WO CON, 03/07/2020, 9:10.? [facility], CT, CT HEAD/BRAIN WO CON, 05/28/2021, 10:43. ? FINDINGS:? Image quality:? Excellent.? ? CSF spaces:? Basal cisterns are patent.? No extra-axial fluid collections.? Earlier noted questionable hyperdensity in right posterior temporal parietal sulcus is no longer seen.? The ventricles are symmetric in size and shape.? ? Brain:? No intracranial bleeds or masses.? There is cerebral volume loss for age, with resultant ventricular and sulcal prominence.? There are periventricular and deep white matter chronic small vessel ischemic changes.? There is intracranial internal carotid artery atherosclerosis.? ? Skull and face:? Again noted are postsurgical changes from prior right frontoparietal craniotomy.? Slight widening of at posterior craniotomy site is again seen with overlying surgical hardware grossly intact unchanged from earlier study.? No displaced skull fracture is seen.? Moderate size right posterior parietal scalp hematoma is again seen and unchanged. ? Sinuses:? Visualized sinuses and mastoids are clear.? ? IMPRESSION:? 1. No evidence of acute intracranial bleed is seen on the current study.? No midline shift or mass effect.? Previously described linear hyperdensity involving right posterior temporal parietal lobe sulcus is no longer seen. 2.? Persistent slight widening in right posterior parietal craniotomy site compared to craniotomy site in right frontal calvarium without displacement at craniotomy site.? Overlying surgical hardware also appears intact.? Finding most likely represent normal postsurgical changes. 3.? Moderate size right posterior parietal scalp hematoma without displaced skull fracture. ? ? Dictated by: Dylon Franklin M.D. on 05/28/2021 at 15:01 ? ? Chest x-ray: Radiologist's Impression: PROCEDURE:? XR CHEST 1V ? INDICATIONS:? fall ? TECHNIQUE:? One view of the chest was acquired.? ? COMPARISON:? [facility], CR, XR CHEST 1V, 01/08/2021, 9:50. ? FINDINGS:? ? Surgical changes and devices:? None.? ? Lungs and pleura:? Lungs are clear.? No pleural effusions or pneumothorax.? ? Mediastinum:? Mediastinal contours appear normal.? Heart size is markedly enlarged, similar to the study dated January 08, 2021. Scattered atheromatous calcifications are present within the aortic arch. ? Bones and chest wall:? No suspicious bony lesions.? Overlying soft tissues appear unremarkable.? No displaced rib fractures visualized. ? IMPRESSION:? Massive cardiomegaly as before.? No interstitial prominence to suggest pulmonary edema at this time. ? ? Dictated by: Shakira Scott M.D. on 05/28/2021 at 11:03 ? ? ECG Data Interpretation: Atrial fibrillation rate [address] changes low voltage improved from previous EKG MDM Narrative Medical decision making narrative: Patient had a traumatic mechanical fall. Blood work is overall reassuring no sign of infection at this time. Radiology called concerned for possible bone movement at the craniotomy site on the right side. She does not have any new or focal deficits. She is awake and alert times seems to understand. 1340 Dr. Joseph Cloud Discuss with Neurosurgery [facility] compared last CT scan in February basically he says there is no change and no new acute changes. he also recommended holding Eliquis for 7 days and outpatient follow-up. It sounds as though daughter is the DPOA she would not want to have any intervention even if there were is intervention that needed to be done. She wan abdullahi to be sure that there was nothing new and acute in patient's brain. Repeat head CT did not show any change. I have discussed with her and patient that patient is high risk to be on anticoagulation. I gave her recommendations of the neurosurgeon and myself at patient is high risk to be on anticoagulation recommended holding the anticoagulation and have further discussion with primary care provider. Patient has 24/7 care at home. There is no indication for admission. HAS-BLED Score for Major Bleeding Risk from [email or web address] on 05/28/2021 All calculations should be rechecked by clinician prior to use RESULT SUMMARY: 4 points Risk was 8.9% in one validation study (Jose M 2010) and 8.70 bleeds per 100 patient-years in another validation study (Osmel 2010). Alternatives to anticoagulation should be considered: Patient is at high risk for major bleeding. INPUTS: Hypertension ?> 1 = Yes Renal disease ?> 0 = No Liver disease ?> 0 = No Stroke history ?> 0 = No Prior major bleeding or predisposition to bleeding ?> 1 = Yes Labile INR ?> 0 = No Age >65 ?> 1 = Yes Medication usage predisposing to bleeding ?> 1 = Yes Alcohol use ?> 0 = No Discharge Plan Departure Patient Disposition: Home Clinical Impression: Hematoma, Fall Instructions: How to Prevent Falls Activity Restrictions/Additional Instructions: *You have been diagnosed with fall *What to do: At this time Sparkle is not a good candidate to be on Eliquis. Every so with the falling and prior intracranial hemorrhage she is at risk to have another intracranial hemorrhage. 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 discussed risk and benefits *Continue to take medications as directed *Follow up with your primary care provider in 2-3 days or call [phone] *Return to ER if you should have increased confusion persistent vomiting, pain or any new, worsening or concerning symptoms Prescriptions: No Action citalopram 10 mg tablet 10 mg PO DAILY 0RF Eliquis 5 MG tablet 5 mg PO BID Qty: 0 0RF trazodone 50 MG tablet 0.5 - 2 tab PO HSP PRN (Reason: Sleep) Qty: 0 0RF carvedilol 25 mg Tablet 25 mg PO SEEINSTR 0RF Rx Instructions: 12.5mg qam, 25mg qpm amlodipine 2.5 mg Tablet 2.5 mg PO DAILY 0RF spironolactone 25 mg Tablet 12.5 mg PO DAILY 0RF levothyroxine [Synthroid] 88 mcg Tablet 50 mcg PO DAILY 0RF atorvastatin 10 mg Tablet 10 mg PO DAILY 0RF ascorbic acid (vitamin C) 1,000 mg Tablet 1,000 mg PO DAILY 0RF cholecalciferol (vitamin D3) [Vitamin D3] 50 mcg (2,000 unit) Capsule 2,000 unit PO DAILY 0RF Referrals: Marycruz Alvarez PA-C [Primary Care Provider] -
--- NOTE | 2021-05-28 10:39 | DI.CT.S_ITS ---
PROCEDURE: CT HEAD/BRAIN WO CON INDICATIONS: fall on pradaxa right side hematoma TECHNIQUE: Noncontrast 4.5 mm thick angled axial sections acquired from the foramen magnum to the vertex, with coronal and sagittal reformats. For radiation dose reduction, the following was used: automated exposure control, adjustment of mA and/or kV according to patient size. COMPARISON: [facility], CT, CT HEAD/BRAIN WO CON, 01/08/2021, 9:32. FINDINGS: Image quality: Excellent. CSF spaces: Basal cisterns are patent. No extra-axial fluid collections. The ventricles are symmetric in size and shape. Brain: There is questionable high-density fluid tracking along a solitary right temporoparietal sulcus (series 2/image 16). No other findings to suggest extra-axial hemorrhage. No intraparenchymal hemorrhage. There is cerebral volume loss for age, with resultant ventricular and sulcal prominence. There are periventricular and deep white matter chronic small vessel ischemic changes. There is intracranial internal carotid artery atherosclerosis. Skull and face: Patient is status post right-sided osteotomy. There is a small subgaleal hematoma which is located just inferior and posterior to the posterior aspect of this osteotomy. There is slight displacement of the calvarial bones within the posterior aspect of this osteotomy. No prior postoperative comparisons are available to determine the acuity of this finding. Visualized bones appear intact, without suspicious lesions. Sinuses: Visualized sinuses and mastoids are clear. IMPRESSION: 1. Questionable trace subarachnoid hemorrhage in the right temporoparietal lobe as above. No other findings to suggest intracranial hemorrhage. 2. Questionable widening of the posterior aspect of the right osteotomy with adjacent subgaleal hematoma. It is unclear whether there has been displacement of the osteotomy or this is an incidental finding. Neuro surgical consultation recommended. 3. Findings likely associated with chronic microvascular ischemic changes. These findings were discussed with Dr. Fernandez at 11:15 a.m. On May 28, 2021. Dictated by: Shakira Scott M.D. on 05/28/2021 at 11:11 Approved by: Shakira Scott M.D. on 05/28/2021 at 11:20
--- NOTE | 2021-05-28 10:39 | DI.RAD.S_ITS ---
PROCEDURE: XR CHEST 1V INDICATIONS: fall TECHNIQUE: One view of the chest was acquired. COMPARISON: [facility], CR, XR CHEST 1V, 01/08/2021, 9:50. FINDINGS: Surgical changes and devices: None. Lungs and pleura: Lungs are clear. No pleural effusions or pneumothorax. Mediastinum: Mediastinal contours appear normal. Heart size is markedly enlarged, similar to the study dated January 08, 2021. Scattered atheromatous calcifications are present within the aortic arch. Bones and chest wall: No suspicious bony lesions. Overlying soft tissues appear unremarkable. No displaced rib fractures visualized. IMPRESSION: Massive cardiomegaly as before. No interstitial prominence to suggest pulmonary edema at this time. Dictated by: Shakira Scott M.D. on 05/28/2021 at 11:03 Approved by: Shakira Scott M.D. on 05/28/2021 at 11:04
--- NOTE | 2021-05-28 10:39 | DI.CT.S_ITS ---
PROCEDURE: CT CERVICAL SPINE WO CON INDICATIONS: fall TECHNIQUE: Noncontrast 3 mm thick sections acquired from the skull base to the T4 level. Sagittal and coronal reformats were then constructed. For radiation dose reduction, the following was used: automated exposure control, adjustment of mA and/or kV according to patient size. COMPARISON: [facility], CT, CT CERVICAL SPINE WO CON, 01/08/2021, 9:59. FINDINGS: Image quality: Excellent. Bones: No fractures or dislocations. There are diffuse degenerative changes throughout the cervical spine including intervertebral disc space narrowing, endplate sclerosis, osteophytosis and subchondral cystic change. Visualized superior ribs are intact. Soft tissues: Prevertebral soft tissues are normal in thickness. No paravertebral hematomas. No apical pneumothoraces. IMPRESSION: 1. No acute cervical spine injury. 2. Moderate degenerative changes. Dictated by: Shakira Scott M.D. on 05/28/2021 at 11:06 Approved by: Shakira Scott M.D. on 05/28/2021 at 11:10
[2021-05-28 11:04] LABS: Add Manual Diff / Slide Review NO; Basophils Absolute Auto 100 /uL (0-100); Basophils Percent Auto 0.7 % (0-2); Eosinophils Absolute Auto 100 /uL (0-450); Eosinophils Percent Auto 1.6 % (2-4); Hemoglobin 11.6 g/dL (12.0-16.0); Lymphocytes Absolute Auto 1800 /uL (1100-4500); Lymphocytes Percent Auto 22.9 % (25-40); Mean Corpuscular HGB Conc 34.1 % (30-36); Mean Corpuscular Hemoglobin 29.2 PG (26-34); Mean Corpuscular Volume 85.5 fL (80-100); Monocytes Absolute Auto 700 /uL (0-900); Monocytes Percent Auto 9.6 % (3-14); Neutrophils Absolute Auto 5100 /uL (1500-7000); Neutrophils Percent Auto 65.2 % (50-75); Platelet Count 232 X10^3/uL (150-400); Red Blood Cell Count 3.98 X10^6/uL (4.0-5.2); Red Cell Distribution Width 14.6 % (11.6-14.8); White Blood Cell Count 7.8 X10^3/uL (4.5-11.0)
[2021-05-28 11:19] LABS: Lactate (Lactic Acid) 0.6 mmol/L (0.7-2.1)
[2021-05-28 11:21] LABS: Alanine Aminotransferase 20 IU/L (<35); Albumin 4.3 g/dL (3.5-5.0); Albumin Globulin Ratio 1.2 (1.0-2.8); Alkaline Phosphatase 124 U/L (38-126); Aspartate Aminotransferase 32 IU/L (14-36); BUN Creatinine Ratio 27.8 (6-22); Bilirubin Total 1.2 mg/dL (0.2-1.3); Blood Urea Nitrogen 20 mg/dL (7-17); Carbon Dioxide 28 mmol/L (22-32); Chloride 104 mmol/L (98-107); Creatine Kinase 42 U/L (30-135); Estimated Glomerular Filt Rate > 60.0 mL/min (>60); Globulin 3.7 g/dL (1.7-4.1); Glucose 93 mg/dL (80-110); HEMOLYSIS < 15 (0-50); Lipase 157 U/L (23-300); Potassium 4.6 mmol/L (3.4-5.1); Sodium 137 mmol/L (137-145)
[2021-05-28 11:32] LABS: Troponin I < 0.012 ng/mL (0.01-0.034)
[2021-05-28 11:37] LABS: Procalcitonin 0.07 ng/mL (<0.5)
[2021-05-28 11:54] LABS: INR 1.6 (0.9-1.3)
[2021-05-28 11:57] LABS: PTT Partial Thromboplastin Tim 35 SECONDS (26.4-36.2)
[2021-05-28 12:58] LABS: Appearance Urine UA CLEAR; Bilirubin Urine UA NEGATIVE (NEGATIVE); Color Urine UA YELLOW; Glucose Urine UA NEGATIVE (Negative); Ketones Urine UA NEGATIVE (NEGATIVE); Leukocyte Esterase Urine UA NEGATIVE (NEGATIVE); Nitrite Urine UA NEGATIVE (Negative); Occult Blood Urine UA NEGATIVE (Negative); Protein Urine UA NEGATIVE (Negative); Urobilinogen Urine UA 0.2 E.U./dL (0.2)
[2021-05-28 13:03] LABS: pH Urine UA 6.5 (4.5-8.0)
[2021-05-28 13:08] LABS: Amorphous Sediment Urine 1+; Bacteria Urine Few (2-10); Culture Indicated Urine Specimen Cultured; RBC Urine None Seen (0-5/HPF); Squamous Epithelial Cell Urine 0-1 /HPF (0-5/HPF); WBC Urine 0-1/HPF (0-5/HPF)
--- NOTE | 2021-05-28 14:30 | DI.CT.S_ITS ---
PROCEDURE: CT HEAD/BRAIN WO CON INDICATIONS: repeat head ?sah and right sided widening of osteomy TECHNIQUE: Noncontrast 4.5 mm thick angled axial sections acquired from the foramen magnum to the vertex, with coronal and sagittal reformats. For radiation dose reduction, the following was used: automated exposure control, adjustment of mA and/or kV according to patient size. COMPARISON: [facility], CT, CT HEAD/BRAIN WO CON, 01/08/2021, 9:32. [facility], CT, CT HEAD/BRAIN WO CON, 03/07/2020, 9:10. [facility], CT, CT HEAD/BRAIN WO CON, 05/28/2021, 10:43. FINDINGS: Image quality: Excellent. CSF spaces: Basal cisterns are patent. No extra-axial fluid collections. Earlier noted questionable hyperdensity in right posterior temporal parietal sulcus is no longer seen. The ventricles are symmetric in size and shape. Brain: No intracranial bleeds or masses. There is cerebral volume loss for age, with resultant ventricular and sulcal prominence. There are periventricular and deep white matter chronic small vessel ischemic changes. There is intracranial internal carotid artery atherosclerosis. Skull and face: Again noted are postsurgical changes from prior right frontoparietal craniotomy. Slight widening of at posterior craniotomy site is again seen with overlying surgical hardware grossly intact unchanged from earlier study. No displaced skull fracture is seen. Moderate size right posterior parietal scalp hematoma is again seen and unchanged. Sinuses: Visualized sinuses and mastoids are clear. IMPRESSION: 1. No evidence of acute intracranial bleed is seen on the current study. No midline shift or mass effect. Previously described linear hyperdensity involving right posterior temporal parietal lobe sulcus is no longer seen. 2. Persistent slight widening in right posterior parietal craniotomy site compared to craniotomy site in right frontal calvarium without displacement at craniotomy site. Overlying surgical hardware also appears intact. Finding most likely represent normal postsurgical changes. 3. Moderate size right posterior parietal scalp hematoma without displaced skull fracture. Dictated by: Dylon Franklin M.D. on 05/28/2021 at 15:01 Approved by: Dylon Franklin M.D. on 05/28/2021 at 15:10
--- NOTE | 2021-05-28 15:31 | CM.SWNOTE ---
DCP Note BI[employer] BOILER OPERATOR receives consult and meet with patient's daughter and patient. Patient is 81 y/o female who presents to ED after GLF. Per patient's daughter, patient had a GLF in December 2020 and resided in a SNF rehab until March 2021. Patient endorses increase in GLFs Patient has history of MS, cognitive and memory issues, and AFib. Patient has PCP Marycruz Alvarez PA-C. Per Daughter patient is DNR and daughter Rodrigo is the DPOA. Patient presents as A/Ox3. Patient resides at home with 24/7 caregiver support. Daughter endorses that she is looking into SNFs but realizes that patient does best with one-on-one caregiver support. Per ED provider Dr. Fernandez, patient's current CT scan was reviewed and compared with previous CT scans. It is the opinion of this BIOMASS BOILER OPERATOR that patient is safe to d/c to home when medically clear with 24/7 caregiver support and for family to f/u with patient's level of care. Patient to f/u with PCP. Plan: Patient to d/c to home with family, continuing with 24/7 caregiver support. BEVERLY Ortiz
== END 2021-05-28 15:57 | disposition home or self-care (01) ==
PROVIDERS: Emergency Provider Emergency Medicine; PCP Physician Assistant
DX: S00.03XA Contusion of scalp, initial encounter (principal); I48.91 Unspecified atrial fibrillation; W18.30XA Fall on same level, unspecified, initial encounter
CPT/HCPCS: 36415; 70450; 71045; 72125; 80053; 81001; 82550; 83605; 83690; 84145; 84484; 85025; 85610; 85730; 87040; 87077; 87086; 93005; 99284

== ENCOUNTER 2021-06-07 21:06 | Emergency (ER) | payer MEDICARE, SELFPAY ==
[2021-06-07] VITALS (7 sets, daily range): BP systolic 144–192; BP diastolic 67–90; PULSE 62–75; RESP 14; TEMP 36.9; O2SAT 88–98; BMI 23.3
[2021-06-07] MEDS: ACETAMINOPHEN 325 MG TABLET 975 MG PO (21:41)
[2021-06-07] MEDS: SODIUM CHLORIDE 0.9% 500 ML 1000 ML IV (21:42)
[2021-06-07 21:43] LABS: Add Manual Diff / Slide Review NO; Basophils Absolute Auto 100 /uL (0-100); Basophils Percent Auto 0.7 % (0-2); Eosinophils Absolute Auto 200 /uL (0-450); Eosinophils Percent Auto 1.2 % (2-4); Hematocrit 33.1 % (36-46); Lymphocytes Absolute Auto 1500 /uL (1100-4500); Mean Corpuscular HGB Conc 33.1 % (30-36); Mean Corpuscular Volume 87.6 fL (80-100); Monocytes Absolute Auto 800 /uL (0-900); Monocytes Percent Auto 5.8 % (3-14); Neutrophils Absolute Auto 11100 /uL (1500-7000); Neutrophils Percent Auto 81.3 % (50-75); Platelet Count 239 X10^3/uL (150-400); Red Blood Cell Count 3.78 X10^6/uL (4.0-5.2); Red Cell Distribution Width 14.8 % (11.6-14.8); White Blood Cell Count 13.7 X10^3/uL (4.5-11.0)
--- NOTE | 2021-06-07 21:51 | ED_ITS ---
HPI - Extremity Problem General Chief complaint: Extremity Problem,Nontraumatic Stated complaint: leg pain Time Seen by Provider: 06/07/21 21:11 Source: EMS Mode of arrival: EMS History of Present Illness HPI Narrative: 81-year-old femaleNonsmoker with history of hypertension and a prior head injury presents with a chief complaint of bilateral anterior thigh pain for the past hour. She states that she was doing her regular physical therapy when started having pain. It hurts with palpation but not active range of motion. She denies any injury or fall. She denies any significant change in her routine or extra exertion. She has had no change in medications or diet. She denies other symptoms such as dizziness, weakness or lightheadedness. She has no chest pain or shortness of breath. She denies any change in bowel habits and has no complaints of dysuria, frequency or urgency. She denies any history of the same. She has taken no medications to help with the pain Related Data Home Medications Medication Instructions Recorded Confirmed apixaban 5 mg tablet (Eliquis) 5 mg PO BID #0 05/21/16 05/14/21 trazodone 50 mg tablet 0.5 - 2 tab PO HSP PRN #0 05/21/16 05/14/21 amlodipine 2.5 mg tablet 2.5 mg PO DAILY 12/08/19 05/14/21 atorvastatin 10 mg tablet 10 mg PO DAILY 12/08/19 05/14/21 carvedilol 25 mg tablet 25 mg PO SEEINSTR 12/08/19 05/14/21 levothyroxine 88 mcg tablet 50 mcg PO DAILY 12/08/19 05/14/21 (Synthroid) spironolactone 25 mg tablet 12.5 mg PO DAILY 12/08/19 05/14/21 ascorbic acid (vitamin C) 1,000 mg 1,000 mg PO DAILY 03/07/20 05/14/21 tablet cholecalciferol (vitamin D3) 50 2,000 unit PO DAILY 03/07/20 05/14/21 mcg (2,000 unit) capsule (Vitamin D3) citalopram 10 mg tablet 10 mg PO DAILY 05/14/21 05/14/21 Allergies Allergy/AdvReac Type Severity Reaction Status Date / Time hydroxyzine Allergy Severe EXCESSIVE Verified 05/14/21 11:54 DROWSINESS/SLEEPINESS AND CONFUSION codeine AdvReac Severe NAUSEA/VOMI Verified 05/14/21 11:54 TING adhesive tape AdvReac Rash Verified 05/14/21 11:54 oxycodone [From Percocet] AdvReac Vomiting Verified 05/14/21 11:54 Review of Systems Review of Systems Narrative: GENERAL: Denies chills, fatigue, malaise, fever, sweats. HEENT: Denies sinus pain, ear pain, sore throat, difficulty swallowing, dizzine ss. RESPIRATORY: Denies dyspnea, cough, wheezing, hemoptysis, sputum. CARDIOVASCULAR: Denies chest pain, palpitations, orthopnea, edema, GASTROINTESTINAL: Denies nausea, vomiting, abdominal pain, diarrhea, constipation, melena. : Denies dysuria, frequency, incontinence, hematuria, urinary retention. MUSCULOSKELETAL: See HPI SKIN: Denies rash, skin lesions, or other NEUROLOGIC: Denies weakness, headache, numbness, change in speech, confusion, seizures, incoordination. PSYCHIATRIC: No concerning psychosocial issues. 12 point review of systems is negative except for those stated above Patient History Medical History (Updated 06/08/21 @ 00:46 by Jeremiah Hubbard DO) Acoustic neuroma Afib Arthritis Ataxia Cardiomegaly Elevated blood sugar History of anticoagulant use HLD (hyperlipidemia) HTN (hypertension) Hypercalcemia Hypothyroid Mitral regurgitation Osteopenia Pulmonary HTN Tricuspid regurgitation Surgical History History of cataract extraction History of hip replacement (2005) History of hysterectomy (1992) Social History household members: none Smoking Status: Never smoker alcohol intake: current Smoking Status: Never smoker alcohol intake frequency: holidays/special occasions only Substance Use Type: does not use Exam Narrative Exam Narrative: GENERAL: [81] year old patient appears stated age. Well-developed patient, in mild distress. HEAD: Atraumatic. Normocephalic. EYES: Pupils equal round and reactive. Extraocular motions intact. No scleral icterus. No injection or drainage. ENT: Nose without bleeding, purulent drainage. Throat without erythema, tonsillar hypertrophy or exudate. Airway patent. NECK: Trachea midline. Non tender CARDIOVASCULAR: Regular rate and rhythm without murmurs, gallops, or rubs. RESPIRATORY: Clear to auscultation. Breath sounds equal bilaterally. No wheezes, rales, or rhonchi. GASTROINTESTINAL: Abdomen soft, non-tender, nondistended. EXTREMITIES: No obvious external manifestation of injury, infection or clot. No redness, swelling or rash. She does have tenderness to palpation of bilateral thighs. No pain in calves, cap refill and dorsalis pedis pulses are intact bilaterally. She is able to flex at the hips actively, bilaterally without pain No edema or joint tenderness. BACK: Nontender without deformity or crepitance. No flank tenderness. NEURO: AOx3. SKIN: No rash or erythema of visible areas Initial Vital Signs Initial Vital Signs: Vital Signs Temperature 98.5 F 06/07/21 21:10 Pulse Rate 62 06/07/21 21:10 Respiratory Rate 14 06/07/21 21:10 Blood Pressure 192/90 H 06/07/21 21:10 Pulse Oximetry 98 06/07/21 21:10 Course Orders Ordered: ED Orders 06/07/21 21:25 C-Reactive Protein Quant Stat Complete Blood Count AUTO DIFF Stat Comprehensive Metabolic Panel Stat Magnesium Stat Troponin & CK Cardiac Panel Stat 06/07/21 23:35 CT head/brain wo con Stat Discontinued Medications Acetaminophen (Acetaminophen 325 Mg Tablet) 975 mg PO NOW ONE Stop: 06/07/21 21:12 Last Admin: 06/07/21 21:41 Dose: 975 mg Documented by: ADAM Sodium Chloride (Normal Saline 0.9%) 500 mls @ 1,000 mls/hr IV BOLUS ONE Stop: 06/07/21 21:40 Last Infusion: 06/08/21 00:32 Dose: 0 mls/hr Documented by: Admin: 06/07/21 21:42 Dose: 1,000 mls/hr Documented by: CTRSEVEN POTASSIUM CHLORIDE IN WATER (Potassium Cl 10 Meq/100 Ml [place]) 10 meq in 100 mls @ 100 mls/hr IV Q1H CAMMIE Stop: 06/07/21 23:59 Last Admin: 06/07/21 22:37 Dose: Not Given Documented by: BRIAN Ketorolac Tromethamine (Ketorolac 30 Mg/Ml Vial) 10 mg IV NOW ONE Stop: 06/07/21 22:58 Last Admin: 06/08/21 00:25 Dose: 10 mg Documented by: ADAM Methylprednisolone (Methylprednisolone 125 Mg/2 Ml Vial) 125 mg IV NOW ONE Stop: 06/07/21 22:58 Last Admin: 06/08/21 00:27 Dose: 125 mg Documented by: ADAM Morphine Sulfate (Morphine 2 Mg/Ml Inj) 2 mg IV Q2HR PRN PRN Reason: Pain, Moderate (4-6) Last Admin: 06/07/21 22:23 Dose: 2 mg Documented by: ADAM Ondansetron HCl (Ondansetron 4 Mg/2 Ml Inj) 4 mg IV NOW ONE Stop: 06/07/21 22:09 Last Admin: 06/07/21 22:23 Dose: 4 mg Documented by: ADAM Ondansetron HCl (Ondansetron 4 Mg/2 Ml Inj) 4 mg IV NOW ONE Stop: 06/07/21 22:57 Last Admin: 06/07/21 23:02 Dose: 4 mg Documented by: ADAM Potassium Chloride (Potassium Chloride 20 Meq/15 Ml Udc) 40 meq PO NOW ONE Stop: 06/07/21 21:56 Last Admin: 06/07/21 22:37 Dose: Not Given Documented by: BRIAN Vital Signs Vital signs: Vital Signs - 8 hr 06/07/21 22:58 06/07/21 22:59 06/07/21 23:00 Pulse Rate 75 74 Blood Pressure 148/67 H 144/67 H Pulse Oximetry 88 L 89 L 90 L 06/07/21 23:29 06/07/21 23:30 06/07/21 23:33 Pulse Rate 74 67 Blood Pressure 158/75 H Pulse Oximetry 90 L 91 06/08/21 00:00 06/08/21 00:30 06/08/21 00:49 Pulse Rate 77 74 78 Blood Pressure 167/78 H Pulse Oximetry 90 L 96 92 MDM - Extremity (Nontraumatic) Lab Data Result diagrams: 06/07/21 21:25 06/07/21 21:25 Labs: Lab Results 06/07/21 06/07/21 Range/Units 21:25 21:25 WBC 13.7 H (4.5-11.0) X10^3/uL RBC 3.78 L (4.0-5.2) X10^6/uL Hgb 11.0 L (12.0-16.0) g/dL Hct 33.1 L (36-46) % MCV 87.6 (80-100) fL MCH 29.0 (26-34) PG MCHC 33.1 (30-36) % RDW 14.8 (11.6-14.8) % Plt Count 239 (150-400) X10^3/uL Neut % (Auto) 81.3 H (50-75) % Lymph % (Auto) 11.0 L (25-40) % [place] % (Auto) 5.8 (3-14) % Eos % (Auto) 1.2 L (2-4) % Baso % (Auto) 0.7 (0-2) % Neut # (Auto) 97451 H (1301-7983) /uL Lymph # (Auto) 1500 (7339-1268) /uL [place] # (Auto) 800 (0-900) /uL Eos # (Auto) 200 (0-450) /uL Baso # (Auto) 100 (0-100) /uL Sodium 137 (137-145) mmol/L Potassium 4.6 (3.4-5.1) mmol/L Chloride 100 (98-107) mmol/L Carbon Dioxide 30 (22-32) mmol/L BUN 28 H (7-17) mg/dL Creatinine 0.86 (0.52-1.04) mg/dL Estimated GFR > 60.0 (>60) mL/min BUN/Creatinine Ratio 32.6 H (6-22) Glucose 127 H (80-110) mg/dL Calcium 9.4 (8.4-10.2) mg/dL Magnesium 2.3 (1.6-2.3) mg/dL Total Bilirubin 1.1 (0.2-1.3) mg/dL AST 37 H (14-36) IU/L ALT 27 (<35) IU/L Alkaline Phosphatase 109 (38-126) U/L Total Creatine Kinase 30 (30-135) U/L CK-MB (CK-2) TNP CK-MB (CK-2) Rel Index TNP Troponin I < 0.012 (0.01-0.034) ng/mL C-Reactive Protein < 0.5 (<1.0) mg/dL Total Protein 7.9 (6.3-8.2) g/dL Albumin 4.3 (3.5-5.0) g/dL Globulin 3.6 (1.7-4.1) g/dL Albumin/Globulin Ratio 1.2 (1.0-2.8) MDM Narrative Medical decision making narrative: Patient has a very reassuring physical exam and history. There is no sign have infection, she denies any injury, there is no sign of rhabdomyolysis or other significant abnormality. Repeat head CT shows improvement of hematoma and no intracranial abnormality. Her exam and history seems to change multiple times over the course as does her concern. There seems to be an element of sundowning and dementia that is impacting her history and exam. I've discussed this at length with her daughter and POA and we sure the opinion that based on objective information there is no indication of any significant or life-threatening abnormality that she would want us to pursue. In the and the patient is very comfortable, smiling and interactive in requesting discharge. Extensive return precautions have been discussed and questions have been answered to their a pparent satisfaction Discharge Plan Departure Patient Disposition: Home Clinical Impression: Acute leg pain Instructions: DI for Leg Pain Activity Restrictions/Additional Instructions: *You have been diagnosed with [bilateral anterior leg pain. There is no evidence of infection, blood clot, electrolyte abnormality or other significant abnormality which would require specific or immediate intervention *What to do: *Please continue to take your regular medications as directed. [ ] New medication prescriptions sent to your pharmacy: [ ] [ ] New medication written as a paper prescription [x ] No new medications given *Please follow up with your primary care provider in 2-3 days, call for an appointment. Let them know you were seen in the Emergency Department and that we ask that you be seen in follow up. We will electronically transmit a record of today's note if your PCP is in our system *If you do not have a primary care provider please contact the [facility] Resource line at [phone]. They will ask some questions about your medical h istory and help get you set up with a doctor in the community. *Return to Emergency Department if you should have any new, worsening or concerning symptoms, such as [fever greater than 101 F, shaking chills, worsening pain, persistent vomiting or other bothersome symptoms] Prescriptions: No Action citalopram 10 mg tablet 10 mg PO DAILY 0RF Eliquis 5 MG tablet 5 mg PO BID Qty: 0 0RF trazodone 50 MG tablet 0.5 - 2 tab PO HSP PRN (Reason: Sleep) Qty: 0 0RF carvedilol 25 mg Tablet 25 mg PO SEEINSTR 0RF Rx Instructions: 12.5mg qam, 25mg qpm amlodipine 2.5 mg Tablet 2.5 mg PO DAILY 0RF spironolactone 25 mg Tablet 12.5 mg PO DAILY 0RF levothyroxine [Synthroid] 88 mcg Tablet 50 mcg PO DAILY 0RF atorvastatin 10 mg Tablet 10 mg PO DAILY 0RF ascorbic acid (vitamin C) 1,000 mg Tablet 1,000 mg PO DAILY 0RF cholecalciferol (vitamin D3) [Vitamin D3] 50 mcg (2,000 unit) Capsule 2,000 unit PO DAILY 0RF Referrals: Marycruz Alvarez PA-C [Primary Care Provider] -
[2021-06-07 21:55] LABS: Alanine Aminotransferase 27 IU/L (<35); Albumin 4.3 g/dL (3.5-5.0); Albumin Globulin Ratio 1.2 (1.0-2.8); Alkaline Phosphatase 109 U/L (38-126); Aspartate Aminotransferase 37 IU/L (14-36); BUN Creatinine Ratio 32.6 (6-22); Bilirubin Total 1.1 mg/dL (0.2-1.3); Blood Urea Nitrogen 28 mg/dL (7-17); C-Reactive Protein Quant < 0.5 mg/dL (<1.0); Calcium 9.4 mg/dL (8.4-10.2); Carbon Dioxide 30 mmol/L (22-32); Chloride 100 mmol/L (98-107); Creatine Kinase 30 U/L (30-135); Estimated Glomerular Filt Rate > 60.0 mL/min (>60); Globulin 3.6 g/dL (1.7-4.1); Glucose 127 mg/dL (80-110); HEMOLYSIS < 15 (0-50); Magnesium 2.3 mg/dL (1.6-2.3); Potassium 4.6 mmol/L (3.4-5.1); Sodium 137 mmol/L (137-145); Total Protein 7.9 g/dL (6.3-8.2)
[2021-06-07 22:05] LABS: Troponin I < 0.012 ng/mL (0.01-0.034)
[2021-06-07] MEDS: ONDANSETRON 4 MG/2 ML INJ IV ×2 (22:23→23:02)
[2021-06-07] MEDS: MORPHINE 2 MG/ML INJ IV (22:23)
[2021-06-07] MEDS: ONDANSETRON 4 MG/2 ML INJ (23:30)
--- NOTE | 2021-06-07 23:35 | DI.CT.S_ITS ---
PROCEDURE: CT HEAD/BRAIN WO CON INDICATIONS: recent fall with head injury and confusion, on thinners TECHNIQUE: Noncontrast 4.5 mm thick angled axial sections acquired from the foramen magnum to the vertex, with coronal and sagittal reformats. For radiation dose reduction, the following was used: automated exposure control, adjustment of mA and/or kV according to patient size. COMPARISON: [facility], CT, CT HEAD/BRAIN WO CON, 05/28/2021, 14:26. [facility], CT, CT HEAD/BRAIN WO CON, 05/28/2021, 10:43. FINDINGS: Image quality: Excellent. CSF spaces: Basal cisterns are patent. No extra-axial fluid collections. The ventricles are symmetric in size and shape. Brain: No acute intracranial hemorrhage or mass effect. Focal chronic encephalomalacia is seen in the left cerebellar hemisphere adjacent to the craniotomy. There is cerebral volume loss for age, with resultant ventricular and sulcal prominence. There are periventricular and deep white matter chronic small vessel ischemic changes. There is intracranial internal carotid artery atherosclerosis. Skull and face: Small right posterior scalp hematoma. Craniotomy changes are seen in the right frontal temporal parietal region and the left posterior fossa. and visualized facial bones appear intact, without suspicious lesions. Sinuses: Visualized sinuses and mastoids are clear. IMPRESSION: Small right posterior scalp hematoma, which has decreased in size when compared to the CT from 05/28/2021. No acute intracranial abnormality. Dictated by: Jose Armando Boykin M.D. on 06/07/2021 at 23:59 Approved by: Jose Armando Boykin M.D. on 06/08/2021 at 0:02
[2021-06-08] VITALS: PULSE 77; O2SAT 90
[2021-06-08] MEDS: KETOROLAC 30 MG/ML VIAL 10 MG IV (00:25)
[2021-06-08] MEDS: methylPREDNISolone 125 MG/2 ML VIAL IV (00:27)
[2021-06-08 00:30] VITALS: PULSE 74; O2SAT 96
[2021-06-08 00:49] VITALS: BP 167/78; PULSE 78; O2SAT 92
== END 2021-06-08 02:04 | disposition home or self-care (01) ==
PROVIDERS: Emergency Provider Emergency Medicine; PCP Physician Assistant
DX: M79.652 Pain in left thigh (principal); M79.651 Pain in right thigh; Z88.5 Allergy status to narcotic agent; S09.90XD Unspecified injury of head, subsequent encounter; W19.XXXD Unspecified fall, subsequent encounter; Z79.01 Long term (current) use of anticoagulants
CPT/HCPCS: 36415; 70450; 80053; 82550; 83735; 84484; 85025; 86140; 93005; 93010; 96361; 96374; 96375; 96376; 99284; J1885; J2270; J2405; J2930